=== PATIENT | female | born 1960 | race Caucasian/White ===

== ENCOUNTER 2016-05-25 14:12 | Inpatient (IN) | payer OTHER ==
[2016-05-25] MEDS ORDERED: MORPHINE SULFATE 2 MG/ML SYRINGE IVP STA (14:30)
[2016-05-25] MEDS ORDERED: ASPIRIN 81 MG CHEW PO STA (14:30)
[2016-05-25] MEDS ORDERED: NITROGLYCERIN SL TABS 0.4 MG TAB SUBLINGUAL STA ×3 (14:30)
--- NOTE | 2016-05-25 14:34 | ED ---
General Adult HPI - General Chief complaint: Chest Pain Stated complaint: Chest Pain Time Seen by Provider: 05/25/16 14:15 Source: patient, RN notes reviewed Mode of arrival: wheelchair Limitations: no limitations - History of Present Illness Initial comments: This is a 55-year-old female who presents to the emergency department complaining of left-sided chest pain radiating to the left neck and left arm. Patient states she's also short of breath. Patient states started 9:00 it wasn' t as bad and has gotten progressively worse. Patient states she has a past medical history significant for coronary artery disease and has one stent placed per patient states this occurred 2 years ago. Patient also states she has diabetes high blood pressure high cholesterol. Patient also states she continues to smoke. Patient denies any recent fever chills or cough. Patient denies any abdominal pain she denies nausea vomiting or diarrhea. Patient denies any back pain. Patient denies any lightheadedness dizziness or near syncopal episode. Patient denies headache patient denies numbness weakness. Patient states she took 2 nitroglycerin at home and was not helpful - Related Data Home Medications Medication Instructions Recorded Confirmed Albuterol Inhaler [Ventolin Hfa 2 inhalation INHALATION RT-Q4H PRN 12/05/1309/05 Inhaler] Carvedilol [Coreg] 3.125 mg PO BID 12/05/13 05/25/16 Methylphenidate HCl [Ritalin] 20 mg PO TID 12/05/13 05/25/16 ALPRAZolam [Xanax] 0.5 mg PO BID PRN 10/30/14 05/25/16 Nitroglycerin Sl Tabs [Nitrostat] 0.4 mg SUBLINGUAL Q5M PRN 10/30/14 05/25/16 PARoxetine [Paxil] 20 mg PO DAILY 11/04/14 05/25/16 Fenofibrate Nanocrystallized 48 mg PO DAILY 05/27/15 05/25/16 [Tricor] Hydrocodone/Acetaminophen 1 tab PO Q6H PRN 05/27/15 05/25/16 [Hydrocodon-Acetaminoph 7.5-325] Omeprazole 20 mg PO BID 05/27/15 05/25/16 Aspirin 81 mg PO DAILY 08/07/15 05/25/16 Amitriptyline HCl [Elavil] 10 mg PO HS 12/13/15 05/25/16 Isosorbide Mononitrate ER [Imdur] 30 mg PO DAILY 12/13/15 05/25/16 Pregabalin [Lyrica] 50 mg PO BID 12/13/15 05/25/16 metFORMIN HCL [Glucophage] 500 mg PO BID 05/25/16 05/25/16 Allergies Allergy/AdvReac Type Severity Reaction Status Date / Time atorvastatin AdvReac leg cramps Verified 05/25/16 14:23 gabapentin AdvReac Swelling Verified 05/25/16 14:23 Review of Systems ROS Statement: Those systems with pertinent positive or pertinent negative responses have been documented in the HPI. ROS Other: All systems not noted in ROS Statement are negative. Past Medical History Past Medical History: Coronary Artery Disease (CAD), Chest Pain / Angina, COPD, Diabetes Mellitus, GERD/Reflux, Hyperlipidemia, Hypertension, Myocardial Infarction ([place]), Osteoarthritis (OA) Additional Past Medical History / Comment(s): Hep C, IV drug abuse>25 years ago , murmur, CHRONIC TOTAL OCCLUSION RCA PER HEART CATH 2013, MILD LT SYSTOLIC DYSFUNCTIONstroke behind eye 3 mos. ago, neuropathy Last Myocardial Infarction Date:: 2010 History of Any Multi-Drug Resistant Organisms: None Reported Past Surgical History: Section, Heart Catheterization, Heart Catheterization With Stent, Tubal Ligation Additional Past Surgical History / Comment(s): stated past heart cath 100% occlusion-unclear if has any stent Past Anesthesia/Blood Transfusion Reactions: No Reported Reaction Date of Last Stent Placement:: 2010 Past Psychological History: Depression Additional Psychological History / Comment(s): lives with boyfriend, pt is independant, works as teamleader in factory. Smoking Status: Current every day smoker Past Alcohol Use History: None Reported Additional Past Alcohol Use History / Comment(s): has smoked <ppd since teens Past Drug Use History: None Reported - Past Family History Mother Family Medical History: Myocardial Infarction ([place]) General Exam - General Exam Comments Initial Comments: GENERAL: Patient is well-developed and well-nourished. Patient is nontoxic and well- hydrated and is in moderate distress. ENT: Neck is soft and supple. No significant lymphadenopathy is noted. Oropharynx is clear. Moist mucous membranes. Neck has full range of motion without eliciting any pain. EYES: The sclera were anicteric and conjunctiva were pink and moist. Extraocular movements were intact and pupils were equal round and reactive to light. Eyelids were unremarkable. PULMONARY: Diminished lung sounds in the bases CARDIOVASCULAR: There is a regular rate and rhythm without any murmurs gallops or rubs. ABDOMEN: Soft and nontender with normal bowel sounds. No palpable organomegaly was noted. There is no palpable pulsatile mass. SKIN: Skin is clear with no lesions or rashes and otherwise unremarkable. NEUROLOGIC: Patient is alert and oriented x3. Cranial nerves II through XII are grossly intact. Motor and sensory are also intact. Normal speech, volume and content. Symmetrical smile. MUSCULOSKELETAL: Normal extremities with adequate strength and full range of motion. No lower extremity swelling or edema. No calf tenderness. LYMPHATICS: No significant lymphadenopathy is noted PSYCHIATRIC: Normal psychiatric evaluation. Normal interpersonal interactions appears functionally intact in deals appropriately with others. No signs of depression. No signs of anxiety. Limitations: no limitations Course Vital Signs 05/25/16 05/25/16 05/25/16 14:21 14:42 14:47 Temperature 97.3 F L Pulse Rate 93 92 95 Respiratory 18 20 20 Rate Blood Pressure 167/75 136/77 134/74 O2 Sat by Pulse 97 97 95 Oximetry Medical Decision Making - Medical Decision Making EKG shows normal sinus rhythm at 92 bpm. It was 194 QRS is 98 QT interval 346 QTC is 427. Patient's EKG has flipped T waves in leads II, III, and F aVF which I compared to an old EKG and saw no acute changes. Patient chest pain was not relieved with nitroglycerin gave the patient morphine and it did improve the pain a little. Patient's chest x-ray was done shows no acute abnormality. I spoke with Dr. Carroll and admitted the patient based on her symptoms and previous history. I continued the nitroglycerin on the floor as well as heparin. I counseled the etiology and I wrote admitting orders. - Lab Data Result diagrams: 05/25/16 14:40 05/25/16 14:40 Lab Results 05/25/16 05/25/16 05/25/16 Range/Units 14:40 14:40 14:40 WBC 9.4 (3.8-10.6) k/uL RBC 4.88 (3.80-5.40) m/uL Hgb 14.3 (11.4-16.0) gm/dL Hct 43.8 (34.0-46.0) % MCV 89.8 (80.0-100.0) fL MCH 29.3 (25.0-35.0) pg MCHC 32.7 (31.0-37.0) g/dL RDW 14.7 (11.5-15.5) % Plt Count 290 (150-450) k/uL Neutrophils % 66 % Lymphocytes % 24 % Monocytes % 4 % Eosinophils % 3 % Basophils % 0 % Neutrophils # 6.2 (1.3-7.7) k/uL Lymphocytes # 2.2 (1.0-4.8) k/uL Monocytes # 0.4 (0-1.0) k/uL Eosinophils # 0.3 (0-0.7) k/uL Basophils # 0.0 (0-0.2) k/uL PT (9.0-12.0) sec INR (<1.1) APTT (22.0-30.0) sec Sodium 143 (137-145) mmol/L Potassium 4.2 (3.5-5.1) mmol/L Chloride 104 (98-107) mmol/L Carbon Dioxide 25 (22-30) mmol/L Anion Gap 14 mmol/L BUN 13 (7-17) mg/dL Creatinine 0.85 (0.52-1.04) mg/dL Est GFR (MDRD) Af Amer >60 (>60 ml/min/1.73 sqM) Est GFR (MDRD) Non-Af >60 (>60 ml/min/1.73 sqM) Glucose 144 H (74-99) mg/dL Calcium 9.9 (8.4-10.2) mg/dL Magnesium 1.8 (1.6-2.3) mg/dL Total Bilirubin 0.4 (0.2-1.3) mg/dL AST 13 L (14-36) U/L ALT 27 (9-52) U/L Alkaline Phosphatase 75 (38-126) U/L Total Creatine Kinase 38 (30-135) U/L CK-MB (CK-2) 0.6 (0.0-2.4) ng/mL CK-MB (CK-2) Rel Index 1.6 Troponin I <0.012 (0.000-0.034) ng/mL Total Protein 7.5 (6.3-8.2) g/dL Albumin 4.4 (3.5-5.0) g/dL 05/25/16 Range/Units 14:40 WBC (3.8-10.6) k/uL RBC (3.80-5.40) m/uL Hgb (11.4-16.0) gm/dL Hct (34.0-46.0) % MCV (80.0-100.0) fL MCH (25.0-35.0) pg MCHC (31.0-37.0) g/dL RDW (11.5-15.5) % Plt Count (150-450) k/uL Neutrophils % % Lymphocytes % % Monocytes % % Eosinophils % % Basophils % % Neutrophils # (1.3-7.7) k/uL Lymphocytes # (1.0-4.8) k/uL Monocytes # (0-1.0) k/uL Eosinophils # (0-0.7) k/uL Basophils # (0-0.2) k/uL PT 10.3 (9.0-12.0) sec INR 1.0 (<1.1) APTT 25.5 (22.0-30.0) sec Sodium (137-145) mmol/L Potassium (3.5-5.1) mmol/L Chloride (98-107) mmol/L Carbon Dioxide (22-30) mmol/L Anion Gap mmol/L BUN (7-17) mg/dL Creatinine (0.52-1.04) mg/dL Est GFR (MDRD) Af Amer (>60 ml/min/1.73 sqM) Est GFR (MDRD) Non-Af (>60 ml/min/1.73 sqM) Glucose (74-99) mg/dL Calcium (8.4-10.2) mg/dL Magnesium (1.6-2.3) mg/dL Total Bilirubin (0.2-1.3) mg/dL AST (14-36) U/L ALT (9-52) U/L Alkaline Phosphatase (38-126) U/L Total Creatine Kinase (30-135) U/L CK-MB (CK-2) (0.0-2.4) ng/mL CK-MB (CK-2) Rel Index Troponin I (0.000-0.034) ng/mL Total Protein (6.3-8.2) g/dL Albumin (3.5-5.0) g/dL Critical Care Time Critical Care Time: Yes Total Critical Care Time: 35 Disposition Clinical Impression: Unstable angina pectoris Disposition: ADMITTED IP TO THIS [facility] Time of Disposition: 15:46
[2016-05-25 14:57] LABS: Partial Thromboplastin Time 25.5 sec (22.0-30.0); Prothrombin Time 10.3 sec (9.0-12.0)
[2016-05-25 14:59] LABS: Basophils % (A) 0 %; CH 29.3; CHCM 32.7; Eosinophils # (A) 0.3 k/uL (0-0.7); Eosinophils % (A) 3 %; HCT 43.8 % (34.0-46.0); HDW 2.68; HGB 14.3 gm/dL (11.4-16.0); Luc # (Auto) 0.22; Luc % (Auto) 2; Lymphocytes # (A) 2.2 k/uL (1.0-4.8); Lymphocytes % (A) 24 %; MCH 29.3 pg (25.0-35.0); MCHC 32.7 g/dL (31.0-37.0); MCV 89.8 fL (80.0-100.0); Mean Platelet Volume 6.5; Monocytes # (A) 0.4 k/uL (0-1.0); Monocytes % (A) 4 %; Neutrophils # (A) 6.2 k/uL (1.3-7.7); Neutrophils % (A) 66 %; RBC 4.88 m/uL (3.80-5.40); RDW 14.7 % (11.5-15.5); WBC 9.4 k/uL (3.8-10.6); WBC (Perox) 9.74
[2016-05-25 15:09] LABS: ALT 27 U/L (9-52); AST 13 U/L (14-36); Alkaline Phosphatase 75 U/L (38-126); Anion Gap 14 mmol/L; Blood Urea Nitrogen 13 mg/dL (7-17); Calcium 9.9 mg/dL (8.4-10.2); Carbon Dioxide 25 mmol/L (22-30); Chloride 104 mmol/L (98-107); Glucose 144 mg/dL (74-99); Magnesium 1.8 mg/dL (1.6-2.3); Non-African American GFR(MDRD) >60 (>60 ml/min/1.73 sqM); Potassium 4.2 mmol/L (3.5-5.1); Sodium 143 mmol/L (137-145); Total Bilirubin 0.4 mg/dL (0.2-1.3); Total Protein 7.5 g/dL (6.3-8.2)
[2016-05-25 15:11] LABS: Creatine Kinase 38 U/L (30-135)
--- NOTE | 2016-05-25 15:11 | XR ---
EXAMINATION TYPE: XR chest 2V DATE OF EXAM: 05/25/2016 3:02 PM COMPARISON: 12/13/2015 HISTORY: Chest pain FINDINGS: The lungs are clear and there is no pneumothorax, pleural effusion, or focal pneumonia. Mild hypertr ophic change of the spine. IMPRESSION: 1. No acute process.
[2016-05-25] MEDS ORDERED: MORPHINE SULFATE 4 MG/ML SYRINGE IVP STA (15:17)
[2016-05-25 15:24] LABS: Creatine Kinase MB 0.6 ng/mL (0.0-2.4); Troponin I <0.012 ng/mL (0.000-0.034)
[2016-05-25] MEDS ORDERED: HEPARIN SODIUM,PORCINE 5,000 UNIT/ML 1 ML VIAL IV ONE (15:47)
[2016-05-25] MEDS ORDERED: HEPARIN SODIUM,PORCINE/D5W PMX 25,000 UNIT in DEXTROSE/WATER 1 500ML.BAG IV SCH (16:00)
[2016-05-25] MEDS ORDERED: ALBUTEROL NEBULIZED 2.5 MG/3 ML INHALATION PRN (18:04)
[2016-05-25] MEDS: NITROGLYCERIN OINT 1 INCH/GM PACKET TOPICAL SCH (18:18)
[2016-05-25] MEDS: NITROGLYCERIN SL TABS 0.4 MG TAB SUBLINGUAL PRN ×3 (19:46→19:56)
[2016-05-25] MEDS: PREGABALIN 50 MG CAP PO SCH (19:47)
[2016-05-25] MEDS: AMITRIPTYLINE HCL 10 MG TAB PO SCH (19:47)
[2016-05-25] MEDS: metFORMIN 500 MG TAB PO SCH (19:47)
[2016-05-25] MEDS: CARVEDILOL 3.125 MG TAB PO SCH (19:47)
[2016-05-25] MEDS: PANTOPRAZOLE 40 MG TABLET PO SCH (19:47)
[2016-05-25] MEDS: MORPHINE SULFATE 2 MG/ML SYRINGE IVP PRN (19:59)
[2016-05-25 20:33] LABS: Glucose,Whole Blood 157 mg/dL (75-99)
[2016-05-25 20:49] LABS: Creatine Kinase 35 U/L (30-135)
[2016-05-25 21:03] LABS: Creatine Kinase MB 0.5 ng/mL (0.0-2.4); Troponin I <0.012 ng/mL (0.000-0.034)
[2016-05-25] MEDS: HYDROcodone/APAP 7.5-325MG 1 EACH TAB PO PRN (21:32)
[2016-05-25] MEDS: METHYLPHENIDATE HCL 10 MG TAB PO SCH (21:32)
[2016-05-25] MEDS: ALPRAZolam 0.5 MG TAB PO PRN (21:32)
[2016-05-25] MEDS: INSULIN LISPRO (humaLOG) 300 UNIT/3 ML VIAL SQ SCH (22:05)
[2016-05-26] MEDS: NITROGLYCERIN OINT 1 INCH/GM PACKET TOPICAL SCH ×4 (00:27→17:14)
[2016-05-26] MEDS: HEPARIN SODIUM,PORCINE 5,000 UNIT/ML 1 ML VIAL IV PRN ×2 (00:29→07:02)
[2016-05-26] MEDS: MORPHINE SULFATE 2 MG/ML SYRINGE IVP PRN ×4 (00:35→21:28)
[2016-05-26] MEDS ORDERED: TEMAZEPAM 15 MG CAP PO PRN (01:05)
[2016-05-26 02:55] LABS: Creatine Kinase 33 U/L (30-135)
[2016-05-26 03:08] LABS: Creatine Kinase MB 0.8 ng/mL (0.0-2.4); Troponin I <0.012 ng/mL (0.000-0.034)
[2016-05-26] MEDS: HYDROcodone/APAP 7.5-325MG 1 EACH TAB PO PRN ×3 (04:34→20:14)
[2016-05-26 06:00] LABS: Glucose,Whole Blood 128 mg/dL (75-99)
[2016-05-26] MEDS: INSULIN LISPRO (humaLOG) 300 UNIT/3 ML VIAL SQ SCH ×4 (06:01→21:27)
[2016-05-26 06:46] LABS: Basophils # (A) 0.1 k/uL (0-0.2); Basophils % (A) 1 %; CHCM 31.8; Eosinophils # (A) 0.4 k/uL (0-0.7); Eosinophils % (A) 6 %; HDW 2.71; HGB 11.7 gm/dL (11.4-16.0); Luc # (Auto) 0.13; Luc % (Auto) 2; Lymphocytes # (A) 2.6 k/uL (1.0-4.8); Lymphocytes % (A) 42 %; MCHC 31.6 g/dL (31.0-37.0); MCV 91.6 fL (80.0-100.0); Mean Platelet Volume 7.6; Monocytes # (A) 0.3 k/uL (0-1.0); Monocytes % (A) 6 %; Neutrophils # (A) 2.6 k/uL (1.3-7.7); Neutrophils % (A) 43 %; RBC 4.04 m/uL (3.80-5.40); RDW 14.6 % (11.5-15.5); WBC 6.1 k/uL (3.8-10.6); WBC (Perox) 6.29
[2016-05-26] MEDS: CARVEDILOL 3.125 MG TAB PO SCH ×2 (06:49→15:21)
[2016-05-26] MEDS: PANTOPRAZOLE 40 MG TABLET PO SCH ×2 (06:49→15:21)
[2016-05-26] MEDS: metFORMIN 500 MG TAB PO SCH ×2 (06:50→17:15)
[2016-05-26 06:56] LABS: Anion Gap 9 mmol/L; Blood Urea Nitrogen 17 mg/dL (7-17); Calcium 8.9 mg/dL (8.4-10.2); Carbon Dioxide 30 mmol/L (22-30); Chloride 104 mmol/L (98-107); Cholesterol 174 mg/dL (<200); Glucose 131 mg/dL (74-99); HDL Cholesterol 28 mg/dL (40-60); Non-African American GFR(MDRD) 59 (>60 ml/min/1.73 sqM); Potassium 4.3 mmol/L (3.5-5.1); Sodium 143 mmol/L (137-145); Triglycerides 514 mg/dL (<150)
[2016-05-26] MEDS: PARoxetine 20 MG TAB PO SCH (07:50)
[2016-05-26] MEDS: ASPIRIN 325 MG TAB PO SCH (07:50)
[2016-05-26] MEDS: PREGABALIN 50 MG CAP PO SCH ×2 (07:50→20:14)
[2016-05-26] MEDS: FENOFIBRATE 54 MG TAB PO SCH (07:50)
[2016-05-26] MEDS: METHYLPHENIDATE HCL 10 MG TAB PO SCH ×3 (07:50→21:28)
[2016-05-26] MEDS: ISOSORBIDE MONONITRATE ER 30 MG TAB.ER.24H PO SCH (07:50)
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
[2016-05-26 08:58] LABS: Hemoglobin A1C 5.9 % (4.2-6.1)
--- NOTE | 2016-05-26 11:01 | ECHOF ---
Referral Reason:chest pain MEASUREMENTS -------- HEIGHT: 160.0 cm WEIGHT: 76.2 kg BP: 149/64 RVIDd: 2.5 cm (< 3.3) IVSd: 1.6 cm (0.6 - 1.1) LVIDd: 4.1 cm (3.9 - 5.3) LVPWd: 1.6 cm (0.6 - 1.1) IVSs: 1.9 cm LVIDs: 2.6 cm LVPWs: 2.1 cm LAESV Index (A-L): 14.96 ml/m Ao Diam: 2.2 cm (2.0 - 3.7) AV Cusp: 1.7 cm (1.5 - 2.6) LA Diam: 2.5 cm (2.7 - 3.8) MV EXCURSION: 9.718 mm (> 18.000) MV EF SLOPE: 50 mm/s (70 - 150) EPSS: 0.2 cm MV E Chavo: 0.59 m/s MV DecT: 247 ms MV A Chavo: 0.70 m/s MV E/A Ratio: 0.85 AR PHT: 1785 ms FINDINGS -------- Sinus rhythm. This was a technically good study. There is moderate concentric left ventricular hypertrophy. Overall left ventricular systolic function is normal with, an EF between 55 - 60 %. The right ventricle is normal in size. Normal LA size by volume 22+/-6 ml/m2. The right atrium is normal in size. The aortic valve is trileaflet and appears structurally normal. There is mild aortic regurgitation. The mitral valve leaflets are mildly thickened. Mild mitral annular calcification present. There is trace mitral regurgitation. Trace tricuspid regurgitation present. Right ventricular systolic pressure is normal at < 35 mmHg. Pulmonic valve appears structurally normal. The aortic root size is normal. Normal inferior vena cava with normal inspiratory collapse consistent with estimated right atrial pressure of 5 mmHg. Echo free space may represent effusion or a pericardial fat pad. CONCLUSIONS -------- 1. Sinus rhythm. 2. The mitral valve leaflets are mildly thickened. 3. Mild mitral annular calcification present. 4. There is trace mitral regurgitation. 5. Trace tricuspid regurgitation present. 6. Right ventricular systolic pressure is normal at < 35 mmHg. 7. Pulmonic valve appears structurally normal. 8. The aortic root size is normal. 9. Echo free space may represent effusion or a pericardial fat pad. 10. This was a technically good study. 11. There is moderate concentric left ventricular hypertrophy. 12. Overall left ventricular systolic function is normal with, an EF between 55 - 60 %. 13. The right ventricle is normal in size. 14. Normal LA size by volume 22+/-6 ml/m2. 15. The right atrium is normal in size. 16. The aortic valve is trileaflet and appears structurally normal. 17. There is mild aortic regurgitation. [employer]: Rosita Sam RDCS
[2016-05-26] MEDS: NICOTINE 14MG/24HR PATCH TRANSDERM SCH (11:41)
[2016-05-26 11:47] LABS: Glucose,Whole Blood 94 mg/dL (75-99)
[2016-05-26] MEDS ORDERED: REGADENOSON 0.4 MG/5 ML SYRINGE IV ONE (11:59)
[2016-05-26] MEDS ORDERED: AMINOPHYLLINE 500 MG/20 ML VIAL IV PRN (11:59)
--- NOTE | 2016-05-26 12:29 | HP ---
DATE OF ADMISSION: DATE OF SERVICE: 05/25/2016 Chief complaint is chest pain. HISTORY OF PRESENT ILLNESS: This 55-year-old woman with a past medical history of multiple medical problems, including history of CAD, history of chest pain, history of COPD, diabetes mellitus, GERD, hyperlipidemia, hypertension, myocardial infarction, DJD, pulmonary embolism, history of IV drug abuse with history of depression being followed by Dr. Vegas in the outpatient setting, was admitted to [facility], was complaining of chest pain. The pain is mostly centered in the left side of the chest which is radiating into the left shoulder, left neck and left arm and the patient also has some minimal shortness of breath. There is factors. Patient came to [facility], admitted for further evaluation and treatment. Troponins are negative so far. Cardiology evaluation in progress. Past medical history of CAD, history of COPD, diabetes mellitus, GERD, hypertension, hyperlipidemia, history of myocardial infarction, DJD, history of pulmonary embolism, history of hepatitis, history of IV drug abuse remotely. Medications prior to admission include, home medications are: 1. Hydrocodone 7.5 q.6 p.r.n. 2. Metformin 500 mg b.i.d. 3. Nitrostat 0.4 sublingual p.r.n. 4. Elavil 10 mg p.o. q.h.s. 5. Xanax 0.5 mg b.i.d. p.r.n. 6. Lyrica 50 mg p.o. b.i.d. 7. Paxil 20 mg p.o. daily. 8. Omeprazole 20 mg p.o. b.i.d. 9. Ritalin 20 mg p.o. t.i.d. 10. Imdur 30 mg p.o. daily. 11. TriCor 48 mg p.o. daily. 12. Coreg 3.125 mg p.o. b.i.d. 13. Aspirin 81 mg daily. 14. Albuterol 2 puffs q.4 p.r.n. Allergies are ATORVASTATIN, GABAPENTIN. FAMILY HISTORY: History of myocardial infarction in the family. SOCIAL HISTORY: History of smoking on a daily basis. REVIEW OF SYSTEMS: ENT: No diminished hearing or diminished vision. CARDIOVASCULAR SYSTEM: No angina, no palpitation. RESPIRATORY: As mentioned earlier. GI: No nausea. : No dysuria. NERVOUS SYSTEM: No numbness or weakness. ALLERGY/IMMUNOLOGY: No asthma or hayfever. MUSCULOSKELETAL: As mentioned earlier. RHEUMATOLOGY: Negative. ENDOCRINE: As mentioned earlier. CONSTITUTIONAL: As mentioned earlier. DERMATOLOGY: Negative. PSYCHIATRY: As mentioned earlier. PHYSICAL EXAM: Patient is alert and oriented x3. The pulse is 88, blood pressure 130/75, respirations 16, temperature is 97.4, pulse ox 92% on room air. HEENT: Conjunctivae normal. NECK: No jugular venous distension. CARDIOVASCULAR SYSTEM: S1, S2, muffled. RESPIRATORY: Breath sounds diminished at the bases. No rhonchi , no crackles. Abdomen is soft, nontender, no mass palpable. EXTREMITIES: Legs no edema, no swelling. NERVOUS SYSTEM: Higher functions as mentioned earlier, moves all 4 limbs, no focal motor deficits. LYMPHATICS: No lymph node enlargement in the neck, groin or axillae. SKIN: No ulcer, rash or bleeding. Labs are at this time shows CBC within normal, troponins are negative so far. Glucose 157. ASSESSMENT: 1. Chest pain, possible angina. 2. Increased random blood sugar. 3. History of chronic obstructive pulmonary disease. 4. Diabetes mellitus type 2. 5. Gastroesophageal reflux disease. 6. Hypertension. 7. Hyperlipidemia. 8. History of myocardial infarction. 9. History of degenerative joint disease. 10. History of pulmonary embolism. 11. History of hypertension. 12. History of IV drug abuse remotely. 13. History of neuropathy. 14. History of cardiac catheterization. 15. History of depression. 16. History of nicotine dependence. RECOMMENDATION: In this 55-year-old gentleman who presented with multiple complex medical issues, will monitor the patient closely. Continue with the current medication and symptomatic treatment and antiplatelets agents, acute coronary syndrome protocol. Cardiology consultation and p.o. after midnight. Resume the home medications. Guarded prognosis because of multiple complex medical issues. Further recommendations to follow. MTDD
--- NOTE | 2016-05-26 14:45 | NM ---
EXAMINATION TYPE: NM stress lexiscan cardiolite DATE OF EXAM: 05/26/2016 2:29 PM COMPARISON: Previous exam 31 October 2014 HISTORY: Difficulty breathing, chest pain intermittently TECHNIQUE: After the intravenous administration of 9.89 mCi Tc 99m Sestamibi - Cardiolite resting SP ECT images acquired 45 minutes post injection. The patient received 0.4mg Lexiscan, 27.5 mCi Tc 99m Sestamibi - Stress images obtained [address] injection FINDINGS: Review of stress and rest SPECT images demonstrates abnormal low radiopharmaceutical uptake on stress imaging as compared to rest imaging in the left ventricle within the inferolateral left ventricular myocardium, possibly the inferoseptal left ventricle towards the base of the heart. Gated analysis sh ows questionable paradoxical wall motion along the inferior wall with an estimated left ventricular e jection fraction of 53 %. IMPRESSION: Pharmacologically-induced left ventricular myocardial ischemia.
[2016-05-26 16:31] LABS: Glucose,Whole Blood 144 mg/dL (75-99)
[2016-05-26] MEDS: AMITRIPTYLINE HCL 10 MG TAB PO SCH (20:14)
[2016-05-26] MEDS: ALPRAZolam 0.5 MG TAB PO PRN (20:15)
[2016-05-26 21:28] LABS: Glucose,Whole Blood 118 mg/dL (75-99)
[2016-05-27] MEDS: NITROGLYCERIN OINT 1 INCH/GM PACKET TOPICAL SCH ×3 (02:43→11:40)
[2016-05-27 05:17] VITALS: RESP 18
[2016-05-27] MEDS: HYDROcodone/APAP 7.5-325MG 1 EACH TAB PO PRN ×2 (05:52→12:42)
[2016-05-27 06:15] LABS: Glucose,Whole Blood 116 mg/dL (75-99)
[2016-05-27] MEDS: MORPHINE SULFATE 2 MG/ML SYRINGE IVP PRN ×2 (06:34→09:47)
[2016-05-27] MEDS: INSULIN LISPRO (humaLOG) 300 UNIT/3 ML VIAL SQ SCH ×2 (06:34→11:58)
[2016-05-27] MEDS: CARVEDILOL 3.125 MG TAB PO SCH (06:34)
[2016-05-27] MEDS: metFORMIN 500 MG TAB PO SCH (06:35)
[2016-05-27] MEDS: PANTOPRAZOLE 40 MG TABLET PO SCH (06:35)
[2016-05-27 06:39] LABS: Basophils % (A) 1 %; CH 29.4; CHCM 31.7; Eosinophils # (A) 0.4 k/uL (0-0.7); Eosinophils % (A) 7 %; HCT 38.2 % (34.0-46.0); HDW 2.69; HGB 11.5 gm/dL (11.4-16.0); Hypochromasia Slight; Luc # (Auto) 0.07; Luc % (Auto) 1; Lymphocytes # (A) 1.8 k/uL (1.0-4.8); Lymphocytes % (A) 30 %; MCH 28.1 pg (25.0-35.0); MCHC 30.1 g/dL (31.0-37.0); MCV 93.2 fL (80.0-100.0); Mean Platelet Volume 7.3; Monocytes # (A) 0.3 k/uL (0-1.0); Monocytes % (A) 5 %; Neutrophils # (A) 3.3 k/uL (1.3-7.7); Neutrophils % (A) 56 %; RDW 14.6 % (11.5-15.5); WBC (Perox) 6.25
[2016-05-27 06:47] LABS: Anion Gap 5 mmol/L; Blood Urea Nitrogen 16 mg/dL (7-17); Calcium 9.4 mg/dL (8.4-10.2); Carbon Dioxide 33 mmol/L (22-30); Chloride 104 mmol/L (98-107); Glucose 121 mg/dL (74-99); Non-African American GFR(MDRD) 58 (>60 ml/min/1.73 sqM); Potassium 4.5 mmol/L (3.5-5.1); Sodium 142 mmol/L (137-145)
[2016-05-27] MEDS: PREGABALIN 50 MG CAP PO SCH (08:05)
[2016-05-27] MEDS: ASPIRIN 325 MG TAB PO SCH (08:05)
[2016-05-27] MEDS: PARoxetine 20 MG TAB PO SCH (08:05)
[2016-05-27] MEDS: NICOTINE 14MG/24HR PATCH TRANSDERM SCH (08:05)
[2016-05-27] MEDS: FENOFIBRATE 54 MG TAB PO SCH (08:05)
[2016-05-27] MEDS: ISOSORBIDE MONONITRATE ER 30 MG TAB.ER.24H PO SCH (08:05)
[2016-05-27] MEDS: METHYLPHENIDATE HCL 10 MG TAB PO SCH (09:36)
--- NOTE | 2016-05-27 10:39 | PN ---
DATE OF SERVICE: 05/26/2016 This 55-year-old woman who was admitted with chest pain, had a positive stress test. Patient is being closely monitored. No chest pain or palpitations. No fever. On exam, alert and oriented x3. Pulse 85, blood pressure 151/68, respirations 16, temperature 97.7, pulse ox 93% on room air. HEENT: Conjunctivae normal. NECK: No jugular venous distention. CARDIOVASCULAR: S1 and S2, muffled. RESPIRATORY: Breath sounds diminished at the bases. No rhonchi, no crackles. ABDOMEN: Soft, nontender. LEGS: No edema, no swelling. NERVOUS SYSTEM: No focal deficits. LABS: CBC and CMP noted. Triglycerides are 514. Glucose is 144. ASSESSMENT: 1. Chest pain, possible angina with positive stress. 2. Increased random blood sugar. 3. Chronic obstructive pulmonary disease. 4. Diabetes mellitus type 2. 5. Gastroesophageal reflux disease. 6. Hypertension. 7. Hyperlipidemia. 8. History of myocardial infarction. 9. History of degenerative joint disease. 10. History of pulmonary embolism. 11. History of hypertension. 12. History of intravenous drug abuse remotely. 13. History of neuropathy. 14. History of cardiac catheterization. 15. history of depression. 16. Remote history of nicotine dependence. RECOMMENDATIONS AND DISCUSSION: Recommend to continue current medications, continue with monitoring and symptomatic treatment. Otherwise, at this time I recommend continue with current medications. Add Lofibra to the current regimen. Otherwise, antiplatelet agents. Closely follow with Cardiology. Guarded prognosis. Further recommendations to follow. [facility]
--- NOTE | 2016-05-27 11:07 | EST ---
DATE OF SERVICE: 05/26/2016 AGE: 55Y SEX: F HT: 5'3" WT: 165 lbs. Protocol Shaheen: Other: Lexiscan Cardiolite Stage: Dur. of Exercise: *Heart Rate Blood Pressure *Rest: 78 Rest: 125/73 * *Max. Achieved: 103 Maximum BP: 142/62 85% PMHR: 141 100% PMHR: 166 *METS: INDICATIONS: Chest pain. MEDICATIONS: Study done by Larissa Cox. CLINICAL INFORMATION: History of chest pain, history of shortness of breath, palpitations, hypertension, diabetes, hypercholesterolemia, family history of coronary artery disease, history ( ) and stents. Resting ECG shows sinus rhythm, rate of 78 per minute, MT interval of 0.24, QRS 0.10, poor R wave progression in anteroseptal leads with first degree AV block, normal ST-T waves. Utilizing a standard Lexiscan protocol, Lexiscan was given IV push followed by serial EKGs without any chest pain or pressure or ST segment deviations indicative of ischemia in any of the monitoring 12 leads. IMPRESSION: 1. Baseline rhythm is sinus with first degree AV block, poor R wave progression in anteroseptal leads; cannot exclude anteroseptal myocardial infarction age unknown. 2. Negative Lexiscan Cardiolite study. 3. Nuclear scintigrams to follow from radiology department.
[2016-05-27] MEDS: ALPRAZolam 0.5 MG TAB PO PRN (11:37)
[2016-05-27 11:44] VITALS: BP 139/71; PULSE 86; TEMP 97.3
[2016-05-27 11:47] LABS: Glucose,Whole Blood 125 mg/dL (75-99)
--- NOTE | 2016-05-27 14:54 | P.PN ---
Subjective Principal diagnosis: Chest pain This is a pleasant 55-year-old female admitted to the hospital with symptoms of chest discomfort. She has a known history of a chronic total occlusion of the right coronary artery, follows regularly with Dr. Hunt in the office. Patient underwent a stress test which did reveal evidence of reversible ischemia in the inferior region. This was discussed with Dr. Moser who felt that that was the area of distribution from the chronic total right coronary artery. Patient was seen and examined this morning, she's been up ambulating without any difficulty. Should be able to be discharged home today to follow-up with Dr. Hunt in the office. Objective - Vital Signs Vital signs: Vital Signs Temp 97.3 F L 05/27/16 11:42 Pulse 86 05/27/16 12:00 Resp 18 05/27/16 12:00 BP 139/71 05/27/16 11:42 Pulse Ox 95 05/27/16 11:42 Intake & Output 05/26/16 05/27/16 05/27/16 18:59 06:59 18:59 Intake Total 485.293 180 Output Total 550 600 250 Balance -64.707 -600 -70 Weight 76.7 kg Intake: IV 100 Heparin Sodium,Porcine/ 100 D5w Pmx 25,000 unit In Dextrose/Water 1 500ml. bag @ 12 UNITS/KG/HR 17. 96 mls/hr IV .Q24H VERNA Rx #:[id number] Intake, IV Titration 149.293 Amount Heparin Sodium,Porcine/ 149.293 D5w Pmx 25,000 unit In Dextrose/Water 1 500ml. bag @ 12 UNITS/KG/HR 17. 96 mls/hr IV .Q24H VERNA Rx #:[id number] Oral 236 180 Output: Urine 550 600 250 Other: Voiding Method Toilet Toilet # Voids 2 - Exam PHYSICAL EXAMINATION: HEENT: Head is atraumatic, normocephalic. Pupils equal, round. Neck is supple. There is no elevated jugular venous pressure. HEART EXAMINATION: Heart S1, S2 normal. No murmur or gallop heard. CHEST EXAMINATION: Lungs are clear to auscultation and precussion. No chest wall tenderness is noted on palpation or with deep breathing. ABDOMEN: Soft, nontender. Bowel sounds are heard. No organomegaly noted. EXTREMITIES: 2+ peripheral pulses with no evidence of peripheral edema and no calf tenderness noted. NEUROLOGIC patient is awake, alert and oriented -3. . - Labs CBC & Chem 7: 05/27/16 05:44 05/27/16 05:44 Labs: Abnormal Lab Results - Last 24 Hours (Table) 05/26/16 05/26/16 05/27/16 Range/Units 16:30 21:17 05:44 MCHC 30.1 L (31.0-37.0) g/dL Carbon Dioxide (22-30) mmol/L Glucose (74-99) mg/dL POC Glucose (mg/dL) 144 H 118 H (75-99) mg/dL 05/27/16 05/27/16 05/27/16 Range/Units 05:44 06:05 11:44 MCHC (31.0-37.0) g/dL Carbon Dioxide 33 H (22-30) mmol/L Glucose 121 H (74-99) mg/dL POC Glucose (mg/dL) 116 H 125 H (75-99) mg/dL Assessment and Plan Plan: Assessment and plan #1 chest pain, rule out acute coronary syndrome. Troponins have been negative 3. EKG shows normal sinus rhythm with inferior lateral ST-T wave changes. #2 hypertension #3 hyperlipidemia #4 diabetes #5 nicotine dependence #6 history of CVA #7 COPD #8 known chronic total occlusion of the RCA, most recent cardiac catheterization was performed in 2013 Plan Stress test revealed evidence of reversible ischemia in the inferior region, patient has a known total chronic occlusion of the right coronary artery, medical therapy advised. She will be discharged home today to follow-up with Dr. Hunt in the office post discharge. DNP note has been reviewed, I agree with a documented findings and plan of care. Patient was seen and examined.
--- NOTE | 2016-05-28 10:18 | DS ---
DATE OF ADMISSION: 05/25/2016 DATE OF DISCHARGE: 05/27/2016 FINAL DIAGNOSES: 1. Chest pain, possible unstable angina with positive stress on medical treatment recommended by cardiology. 2. Increased random blood sugar. 3. Chronic obstructive pulmonary disease. 4. Diabetes mellitus type 2. 5. Gastroesophageal reflux disease. 6. Hypertension. 7. Hyperlipidemia. 8. Myocardial infarction. 9. Degenerative joint disease. 10. History of pulmonary embolism. 11. History of hypertension. 12. History of intravenous drug abuse remotely. 13. History of neuropathy. 14. History of cardiac catheterization. 15. History of depression. 16. Remote history of nicotine dependence. DISCHARGE DISPOSITION: Patient will be discharged in a stable condition with guarded prognosis. Cardiology cleared the patient for discharge. HISTORY OF PRESENT ILLNESS: This 55 -year-old woman with a past medical history of multiple medical problems admitted with chest pain, stress test was positive for reversible ischemia found in the area of chronic right total occlusion of the right coronary artery per cardiology. Treated medically On exam, vitals are stable. CARDIOVASCULAR: S1, S2. Abdomen soft. Central nervous system: No focal deficits. DISCHARGE ADVICE AND MEDICATIONS: 1. Diet is cardiac. 2. Activity limited until follow-up. 3. Follow up with Dr. Vegas in 2 to 3 days. 4. Follow-up with Dr. Alcazar as advised. 5. Medications are Xanax 0.5 p.o. b.i.d. p.r.n. 6.ventolin two puffs q.i.d. 7. Elavil 10 mg p.o. q.h.s. 8. Aspirin 81 mg p.o. daily. 9. Coreg 3.125 mg p.o. b.i.d. 10. Pnvsrrlryrb98 mg p.o. daily. 11. Hydrocodone 1 tablet q.6 p.r.n. 12. Isosorbide mononitrate 30 mg p.o. daily. 13. ritalin 20 mg p.o. t.i.d. 14. Habitrol 14 daily. 15. Nitrostat 0.4 sublingual p.r.n. 16. Omeprazole 20 mg b.i.d. 17. Paxil 20 mg daily. 18. Lyrica 50 mg p.o. b.i.d. 19. Glucophage 500 mg p.o. b Once again, the patient will be discharged in stable condition with guarded prognosis. SAMANTHAD
== END 2016-05-27 13:10 | disposition home or self-care (01) | DRG 303 ==
LOC: EC 14:12 → 6SEL 15:47
PROVIDERS: ADMIT Internal Medicine; ATTEND Internal Medicine
DX: I25.110 Atherosclerotic heart disease of native coronary artery with unstable angina pectoris (principal); E11.40 Type 2 diabetes mellitus with diabetic neuropathy, unspecified; I25.82 Chronic total occlusion of coronary artery; E78.00 Pure hypercholesterolemia, unspecified; I10 Essential (primary) hypertension; E78.5 Hyperlipidemia, unspecified; F17.200 Nicotine dependence, unspecified, uncomplicated; I25.2 Old myocardial infarction; J44.9 Chronic obstructive pulmonary disease, unspecified; K21.9 Gastro-esophageal reflux disease without esophagitis; M19.90 Unspecified osteoarthritis, unspecified site; B19.20 Unspecified viral hepatitis C without hepatic coma; F32.9 Major depressive disorder, single episode, unspecified; R01.1 Cardiac murmur, unspecified; Z79.82 Long term (current) use of aspirin; Z79.84 Long term (current) use of oral hypoglycemic drugs; Z79.4 Long term (current) use of insulin; Z95.5 Presence of coronary angioplasty implant and graft; Z82.49 Family history of ischemic heart disease and other diseases of the circulatory system
CPT/HCPCS: 36415; 71020; 78452; 80048; 80053; 80061; 82550; 82553; 83036; 83735; 84484; 85025; 85610; 85730; 87502; 93005; 93017; 93306; 94760; 96365; 96366; 96375; 96376; 99291

== ENCOUNTER 2016-09-09 14:03 | Emergency (ER) | payer OTHER ==
[2016-09-09] MEDS ORDERED: IPRATROPIUM-ALBUTEROL 3 ML NEB INHALATION STA (15:24)
--- NOTE | 2016-09-09 15:33 | ED ---
URI HPI - General Chief Complaint: Upper Respiratory Infection Stated Complaint: poss pneumonia Time Seen by Provider: 09/09/16 15:11 Source: patient, RN notes reviewed Mode of arrival: ambulatory Limitations: no limitations - History of Present Illness Initial Comments: 55-year-old female presents emergency Department with chief complaint of cough congestion . Patient states she's been sick for last 10 days. Patient has not seen before this. Patient states that she's had no fever no chills. Patient has a history of COPD. Patient been doing her breathing treatments at home with some relief or shortness of breath. Patient states she has a productive cough worried about pneumonia. Patient denies any chest pain or palpitations or nausea vomiting diarrhea constipation. - Related Data Home Medications Medication Instructions Recorded Confirmed Albuterol Inhaler [Ventolin Hfa 2 inhalation INHALATION RT-Q4H PRN 12/05/1309/05 Inhaler] Carvedilol [Coreg] 3.125 mg PO BID 12/05/13 05/25/16 Methylphenidate HCl [Ritalin] 20 mg PO TID 12/05/13 05/25/16 ALPRAZolam [Xanax] 0.5 mg PO BID PRN 10/30/14 05/25/16 Nitroglycerin Sl Tabs [Nitrostat] 0.4 mg SUBLINGUAL Q5M PRN 10/30/14 05/25/16 PARoxetine [Paxil] 20 mg PO DAILY 11/04/14 05/25/16 Fenofibrate Nanocrystallized 48 mg PO DAILY 05/27/15 05/25/16 [Tricor] Hydrocodone/Acetaminophen 1 tab PO Q6H PRN 05/27/15 05/25/16 [Hydrocodon-Acetaminoph 7.5-325] Omeprazole 20 mg PO BID 05/27/15 05/25/16 Aspirin 81 mg PO DAILY 08/07/15 05/25/16 Amitriptyline HCl [Elavil] 10 mg PO HS 12/13/15 05/25/16 Isosorbide Mononitrate ER [Imdur] 30 mg PO DAILY 12/13/15 05/25/16 Pregabalin [Lyrica] 50 mg PO BID 12/13/15 05/25/16 metFORMIN HCL [Glucophage] 500 mg PO BID 05/25/16 05/25/16 Previous Rx's Medication Instructions Recorded Nicotine 14Mg/24Hr Patch [Habitrol] 1 patch TRANSDERM DAILY #30 patch 05/27/16 Ipratropium-Albuterol Nebulize 3 ml INHALATION QID #1 box 09/09/16 [Duoneb 0.5 mg-3 mg/3 ml Soln] predniSONE 50 mg PO DAILY #5 tab 09/09/16 Allergies Allergy/AdvReac Type Severity Reaction Status Date / Time atorvastatin AdvReac leg cramps Verified 09/09/16 14:41 gabapentin AdvReac Swelling Verified 09/09/16 14:41 Review of Systems ROS Statement: Those systems with pertinent positive or pertinent negative responses have been documented in the HPI. ROS Other: All systems not noted in ROS Statement are negative. Past Medical History Past Medical History: Coronary Artery Disease (CAD), Chest Pain / Angina, COPD, Diabetes Mellitus, GERD/Reflux, Hyperlipidemia, Hypertension, Myocardial Infarction (DC), Osteoarthritis (OA), Pulmonary Embolus (PE) Additional Past Medical History / Comment(s): Hep C, IV drug abuse>25 years ago , murmur, SOME BLOCKAGE TO RCA PER HEART CATH 2013, MILD LT SYSTOLIC DYSFUNCTIONstroke behind eye 3 mos. ago, neuropathy Last Myocardial Infarction Date:: 2010 History of Any Multi-Drug Resistant Organisms: None Reported Past Surgical History: Section, Heart Catheterization, Tubal Ligation Additional Past Surgical History / Comment(s): STRESS TEST, HERB Past Anesthesia/Blood Transfusion Reactions: No Reported Reaction Date of Last Stent Placement:: 2010 Past Psychological History: Anxiety, Depression Additional Psychological History / Comment(s): lives with boyfriend, pt is independant, works as teamleader in factory. Smoking Status: Current every day smoker Past Alcohol Use History: None Reported Additional Past Alcohol Use History / Comment(s): has smoked <ppd since AGE 16( 1976) 1/2 PPD Past Drug Use History: None Reported Additional Drug Use History / Comment(s): AT TIME OF THIS ADMIT-PT DENIED ANY DRUG ABUSE PAST OR CURRENT-PT DENIES BUT PREVIOUS ADMIT CHARTING REFLECTED PAST USE. - Past Family History Mother Family Medical History: Myocardial Infarction (DC) Father Family Medical History: Unable to Obtain Additional Family Medical History / Comment(s): PT STTED HER FATHER IN MVA 1968 General Exam Limitations: no limitations General appearance: alert, in no apparent distress Head exam: Present: atraumatic, normocephalic, normal inspection Eye exam: Present: normal appearance, PERRL, EOMI. Absent: scleral icterus, conjunctival injection, periorbital swelling ENT exam: Present: normal exam, normal oropharynx, mucous membranes moist, TM's normal bilaterally, normal external ear exam Neck exam: Present: normal inspection, full ROM. Absent: tenderness, meningismus, lymphadenopathy Respiratory exam: Present: wheezes (faint), decreased breath sounds. Absent: normal lung sounds bilaterally, respiratory distress, rales, rhonchi, stridor Cardiovascular Exam: Present: regular rate, normal rhythm, normal heart sounds. Absent: systolic murmur, diastolic murmur, rubs, gallop, clicks GI/Abdominal exam: Present: soft, normal bowel sounds. Absent: distended, tenderness, guarding, rebound, rigid Course Vital Signs 09/09/16 09/09/16 09/09/16 14:38 15:14 15:59 Temperature 99.5 F Pulse Rate 107 H 106 H 86 Respiratory 22 24 Rate Blood Pressure 126/65 145/69 O2 Sat by Pulse 92 L 93 L Oximetry 09/09/16 16:14 Temperature Pulse Rate 88 Respiratory Rate Blood Pressure O2 Sat by Pulse Oximetry - Reevaluation(s) Reevaluation #1: 09/09/16 16:27 Patient was improved after DuoNeb treatment. Obtained and chest x-ray results no pneumonia. Medical Decision Making - Medical Decision Making 55-year-old female presented emergency from for cough congestion. Patient has COPD continues to smoke smoking cessation was counseled in detail greater than 3 minutes. Patient states that she felt better after DuoNeb treatment. Patient will be discharged with DuoNeb treatments, steroids. Disposition Clinical Impression: COPD exacerbation Disposition: HOME SELF-CARE Condition: Stable Instructions: COPD (Chronic Obstructive Pulmonary Disease) (ED) Additional Instructions: Please return to the Emergency Department if symptoms worsen or any other concerns. Prescriptions: Ipratropium-Albuterol Nebulize [Duoneb 0.5 mg-3 mg/3 ml Soln] 3 ml INHALATION QID #1 box predniSONE 50 mg PO DAILY #5 tab Time of Disposition: 16:28
--- NOTE | 2016-09-09 15:37 | XR ---
EXAMINATION TYPE: XR chest 2V DATE OF EXAM: 09/09/2016 3:33 PM COMPARISON: Prior chest x-ray 25 May 2016 HISTORY: Cough and pain, shortness of breath TECHNIQUE: Frontal and lateral views of the chest are obtained. FINDINGS: There is no focal air space opacity, pleural effusion, or pneumothorax seen. The cardiac silhouette size is within normal limits. Prominent lung volumes compatible with underlying COPD. The osseous structures are intact. IMPRESSION: No acute cardiopulmonary process.
[2016-09-09] MEDS ORDERED: CHLORPHEN-HYDROcod 8-10mg/5ml 5 ML ORAL.SYRG PO STA (15:47)
[2016-09-09] MEDS ORDERED: methylPREDNISolone SOD SUCCI 125 MG/2 ML VIAL IM ONE (16:26)
[2016-09-09 16:45] VITALS: BP 142/67; PULSE 98; RESP 20; TEMP 98
== END 2016-09-09 16:45 | disposition home or self-care (01) ==
LOC: EC 14:03
DX: J44.1 Chronic obstructive pulmonary disease with (acute) exacerbation (principal); E11.9 Type 2 diabetes mellitus without complications; K21.9 Gastro-esophageal reflux disease without esophagitis; M19.90 Unspecified osteoarthritis, unspecified site; I10 Essential (primary) hypertension; F32.9 Major depressive disorder, single episode, unspecified; F17.200 Nicotine dependence, unspecified, uncomplicated; Z88.8 Allergy status to other drugs, medicaments and biological substances; Z79.82 Long term (current) use of aspirin; Z79.84 Long term (current) use of oral hypoglycemic drugs; Z79.899 Other long term (current) drug therapy
CPT/HCPCS: 99283; 96372; 94640; 71020; J2930

== ENCOUNTER 2016-09-16 23:32 | Inpatient (IN) | payer OTHER ==
[2016-09-17] MEDS ORDERED: SODIUM CHLORIDE 0.9% 500 ML IV STA ×2 (00:32→01:20)
[2016-09-17] MEDS ORDERED: DIAZEPAM 5 MG/ML 2 ML SYRINGE IVP STA (00:32)
[2016-09-17 00:42] LABS: Basophils # (A) 0.2 k/uL (0-0.2); Basophils % (A) 1 %; CH 28.6; CHCM 32.8; Eosinophils # (A) 0.1 k/uL (0-0.7); Eosinophils % (A) 0 %; HCT 46.7 % (34.0-46.0); HDW 2.61; HGB 15.1 gm/dL (11.4-16.0); Luc # (Auto) 0.25; Luc % (Auto) 1; Lymphocytes # (A) 4.1 k/uL (1.0-4.8); Lymphocytes % (A) 21 %; MCH 28.4 pg (25.0-35.0); MCHC 32.3 g/dL (31.0-37.0); MCV 87.8 fL (80.0-100.0); Monocytes # (A) 0.8 k/uL (0-1.0); Monocytes % (A) 4 %; Neutrophils # (A) 14.4 k/uL (1.3-7.7); Neutrophils % (A) 73 %; RBC 5.33 m/uL (3.80-5.40); RDW 15.3 % (11.5-15.5); WBC 19.8 k/uL (3.8-10.6); WBC (Perox) 19.56
[2016-09-17 00:51] LABS: ALT 29 U/L (9-52); AST 19 U/L (14-36); Alcohol <10 mg/dL; Alkaline Phosphatase 65 U/L (38-126); Anion Gap 13 mmol/L; Blood Urea Nitrogen 34 mg/dL (7-17); Calcium 9.9 mg/dL (8.4-10.2); Carbon Dioxide 26 mmol/L (22-30); Chloride 100 mmol/L (98-107); Glucose 105 mg/dL (74-99); Magnesium 1.7 mg/dL (1.6-2.3); Non-African American GFR(MDRD) 52 (>60 ml/min/1.73 sqM); Potassium 3.8 mmol/L (3.5-5.1); Sodium 139 mmol/L (137-145); Total Bilirubin 0.3 mg/dL (0.2-1.3); Total Protein 6.6 g/dL (6.3-8.2)
[2016-09-17] MEDS ORDERED: ASPIRIN 81 MG CHEW PO STA (01:20)
[2016-09-17 01:31] LABS: Appearance,Urine Clear (Clear); Bilirubin,Urine Negative (Negative); Glucose,Urine (UA) Negative (Negative); Ketones,Urine Negative (Negative); Leukocyte Esterase,Urine Negative (Negative); Nitrite,Urine Negative (Negative); Protein,Urine Negative (Negative); Specific Gravity,Urine 1.011 (1.001-1.035); UA Billing (MACRO vs. MICRO) CHEM; Urobilinogen,Urine <2.0 mg/dL (<2.0)
[2016-09-17] MEDS ORDERED: MORPHINE SULFATE 4 MG/ML SYRINGE IV STA ×2 (01:50→03:22)
[2016-09-17] MEDS ORDERED: HEPARIN SODIUM,PORCINE 5,000 UNIT/ML 1 ML VIAL IV ONE (01:50)
--- NOTE | 2016-09-17 02:08 | XR ---
EXAM: XR Chest, 1 View CLINICAL HISTORY: Reason: Pain TECHNIQUE: Frontal view of the chest. COMPARISON: 09/09/16. FINDINGS: Lungs: Unremarkable. No consolidation. Pleural space: Unremarkable. No pneumothorax. Heart: Unremarkable. No cardiomegaly. Mediastinum: Unremarkable. Bones/joints: Unremarkable. IMPRESSION: No acute findings or substantial change
[2016-09-17] MEDS: HEPARIN SODIUM,PORCINE/D5W PMX 25,000 UNIT in DEXTROSE/WATER 1 500ML.BAG IV SCH ×2 (02:18→23:56)
[2016-09-17 02:32] LABS: Prothrombin Time 10.3 sec (9.0-12.0)
[2016-09-17 02:38] LABS: Partial Thromboplastin Time 22.7 sec (22.0-30.0)
[2016-09-17] MEDS ORDERED: NITROGLYCERIN SL TABS 0.4 MG TAB SUBLINGUAL PRN ×2 (03:26→03:51)
[2016-09-17] MEDS: SODIUM CHLORIDE 0.9% 1,000 ML IV SCH ×3 (04:11→23:57)
--- NOTE | 2016-09-17 04:22 | ED ---
General Adult HPI - General Chief complaint: Recheck/Abnormal Lab/Rx Stated complaint: R SIDED PAIN/MUSCLE SPASMS Time Seen by Provider: 09/16/16 23:40 Source: EMS Mode of arrival: EMS Limitations: no limitations - History of Present Illness Initial comments: This patient is a 55-year-old woman who presents with the chief complaint that she is having spasms throughout her entire body. She states that starting early in the afternoon she began having muscle spasms. she demonstrates cramping of the bilateral hands and forearms, consistent with carpal pedal spasm. She states the spasms have intermittently been affecting most of her body. She indicates the abdominal wall, the back, legs, as well as the upper extremities. The patient also states that she has been having periods of breaking into a sweat, and she was also having some chest pressure. The patient notes that she has been told she has a 100% occlusion of one of the coronary arteries. She states she was deemed not a candidate for bypass operation. The patient does deny other anginal type symptoms. Onset/Timin -: days(s) Quality: other Consistency: intermittent (Spasming) Improves with: none Worsens with: none Associated Symptoms: chest pain, diaphoresis Treatments Prior to Arrival: none - Related Data Home Medications Medication Instructions Recorded Confirmed Albuterol Inhaler [Ventolin Hfa 2 inhalation INHALATION RT-Q4H PRN 12/05/1309/05 Inhaler] Carvedilol [Coreg] 3.125 mg PO BID 12/05/13 05/25/16 Methylphenidate HCl [Ritalin] 20 mg PO TID 12/05/13 05/25/16 ALPRAZolam [Xanax] 0.5 mg PO BID PRN 10/30/14 05/25/16 Nitroglycerin Sl Tabs [Nitrostat] 0.4 mg SUBLINGUAL Q5M PRN 10/30/14 05/25/16 PARoxetine [Paxil] 20 mg PO DAILY 11/04/14 05/25/16 Fenofibrate Nanocrystallized 48 mg PO DAILY 05/27/15 05/25/16 [Tricor] Hydrocodone/Acetaminophen 1 tab PO Q6H PRN 05/27/15 05/25/16 [Hydrocodon-Acetaminoph 7.5-325] Omeprazole 20 mg PO BID 05/27/15 05/25/16 Aspirin 81 mg PO DAILY 08/07/15 05/25/16 Amitriptyline HCl [Elavil] 10 mg PO HS 12/13/15 05/25/16 Isosorbide Mononitrate ER [Imdur] 30 mg PO DAILY 12/13/15 05/25/16 Pregabalin [Lyrica] 50 mg PO BID 12/13/15 05/25/16 metFORMIN HCL [Glucophage] 500 mg PO BID 05/25/16 05/25/16 Previous Rx's Medication Instructions Recorded Nicotine 14Mg/24Hr Patch [Habitrol] 1 patch TRANSDERM DAILY #30 patch 05/27/16 Ipratropium-Albuterol Nebulize 3 ml INHALATION QID #1 box 09/09/16 [Duoneb 0.5 mg-3 mg/3 ml Soln] predniSONE 50 mg PO DAILY #5 tab 09/09/16 Allergies Allergy/AdvReac Type Severity Reaction Status Date / Time atorvastatin AdvReac leg cramps Verified 09/09/16 14:41 gabapentin AdvReac Swelling Verified 09/09/16 14:41 Review of Systems ROS Statement: Those systems with pertinent positive or pertinent negative responses have been documented in the HPI. ROS Other: All systems not noted in ROS Statement are negative. Constitutional: Denies: fever, chills, weakness Respiratory: Denies: cough, dyspnea, wheezes, hemoptysis Cardiovascular: Reports: as per HPI, chest pain. Denies: palpitations, orthopnea, edema, syncope Gastrointestinal: Denies: abdominal pain, nausea, vomiting, melena, hematochezia Genitourinary: Denies: dysuria, hematuria Musculoskeletal: Reports: myalgia. Denies: back pain Skin: Denies: rash Neurological: Denies: headache, weakness, numbness Psychiatric: Reports: anxiety Hematological/Lymphatic: Denies: easy bleeding Past Medical History Past Medical History: Coronary Artery Disease (CAD), Chest Pain / Angina, COPD, Diabetes Mellitus, GERD/Reflux, Hyperlipidemia, Hypertension, Myocardial Infarction (DC), Osteoarthritis (OA), Pulmonary Embolus (PE) Additional Past Medical History / Comment(s): Hep C, IV drug abuse>25 years ago , murmur, SOME BLOCKAGE TO RCA PER HEART CATH 2013, MILD LT SYSTOLIC DYSFUNCTIONstroke behind eye 3 mos. ago, neuropathy Last Myocardial Infarction Date:: 2010 History of Any Multi-Drug Resistant Organisms: None Reported Past Surgical History: Section, Heart Catheterization, Tubal Ligation Additional Past Surgical History / Comment(s): STRESS TEST, HERB Past Anesthesia/Blood Transfusion Reactions: No Reported Reaction Date of Last Stent Placement:: 2010 Past Psychological History: Anxiety, Depression Additional Psychological History / Comment(s): lives with boyfriend, pt is independant, works as teamleader in factory. Smoking Status: Current every day smoker Past Alcohol Use History: None Reported Additional Past Alcohol Use History / Comment(s): has smoked <ppd since AGE 16( 1976) 1/2 PPD Past Drug Use History: None Reported Additional Drug Use History / Comment(s): AT TIME OF THIS ADMIT-PT DENIED ANY DRUG ABUSE PAST OR CURRENT-PT DENIES BUT PREVIOUS ADMIT CHARTING REFLECTED PAST USE. - Past Family History Mother Family Medical History: Myocardial Infarction (DC) Father Family Medical History: Unable to Obtain Additional Family Medical History / Comment(s): PT STTED HER FATHER IN MVA 1968 General Exam Limitations: no limitations General appearance: alert, in no apparent distress Head exam: Present: atraumatic, normocephalic Eye exam: Present: normal appearance. Absent: scleral icterus, conjunctival injection ENT exam: Present: normal oropharynx Neck exam: Present: normal inspection Respiratory exam: Present: normal lung sounds bilaterally. Absent: respiratory distress, wheezes, rales, rhonchi, stridor Cardiovascular Exam: Present: regular rate, normal rhythm, normal heart sounds. Absent: systolic murmur, diastolic murmur, rubs, gallop GI/Abdominal exam: Present: soft, normal bowel sounds. Absent: distended, tenderness, guarding, rebound, mass, pulsatile mass, hernia Extremities exam: Present: normal inspection, normal capillary refill. Absent: pedal edema, calf tenderness Back exam: Present: normal inspection. Absent: CVA tenderness (R), CVA tenderness (L) Neurological exam: Present: alert Psychiatric exam: Present: anxious Skin exam: Present: warm, dry, intact, normal color. Absent: rash Course Vital Signs 09/16/16 09/17/16 09/17/16 23:36 00:44 02:22 Temperature 98.3 F 97.7 F Pulse Rate 95 86 83 Respiratory 24 20 20 Rate Blood Pressure 138/68 109/61 127/71 O2 Sat by Pulse 96 94 L 96 Oximetry 09/17/16 09/17/16 03:18 04:24 Temperature 97.8 F Pulse Rate 84 88 Respiratory 20 20 Rate Blood Pressure 134/72 124/65 O2 Sat by Pulse 94 L 95 Oximetry EKG Findings - EKG Comments: EKG Findings:: Patient's 12-lead EKG does show T inversions inferior and laterally suggestive of ischemia. In comparison with the previous EKG the T inversions in 1 and aVL appear new. - EKG Results: EKG: interpreted by ERMD, sinus rhythm (Rate 81 bpm), normal axis - Blocks, [place], Hypertrophy, ST Abn: Repolarization changes or abnormalities: ST or T wave suggestive of ischemia - DC, Pacemaker, Normal: Myocardial infarction: anterior DC (old age or indeterminate) Medical Decision Making - Medical Decision Making Patient's 55-year-old woman complaining of muscle spasms throughout her body. She also had some chest tightness and with the T inversions that appear new, will admit the patient to be seen by cardiology. The patient's troponin did come back mildly elevated and patient's placed on heparin. Following medication she has had resolution of the chest symptoms though she does still complain of the intermittent spasms to the extremities. - Lab Data Result diagrams: 09/16/16 23:43 09/16/16 23:43 Lab Results 09/16/16 09/16/16 09/16/16 Range/Units 23:43 23:43 23:43 WBC 19.8 H (3.8-10.6) k/uL RBC 5.33 (3.80-5.40) m/uL Hgb 15.1 (11.4-16.0) gm/dL Hct 46.7 H (34.0-46.0) % MCV 87.8 (80.0-100.0) fL MCH 28.4 (25.0-35.0) pg MCHC 32.3 (31.0-37.0) g/dL RDW 15.3 (11.5-15.5) % Plt Count 326 (150-450) k/uL Neutrophils % 73 % Lymphocytes % 21 % Monocytes % 4 % Eosinophils % 0 % Basophils % 1 % Neutrophils # 14.4 H (1.3-7.7) k/uL Lymphocytes # 4.1 (1.0-4.8) k/uL Monocytes # 0.8 (0-1.0) k/uL Eosinophils # 0.1 (0-0.7) k/uL Basophils # 0.2 (0-0.2) k/uL PT (9.0-12.0) sec INR (<1.1) APTT (22.0-30.0) sec Sodium 139 (137-145) mmol/L Potassium 3.8 (3.5-5.1) mmol/L Chloride 100 (98-107) mmol/L Carbon Dioxide 26 (22-30) mmol/L Anion Gap 13 mmol/L BUN 34 H (7-17) mg/dL Creatinine 1.10 H (0.52-1.04) mg/dL Est GFR (MDRD) Af Amer >60 (>60 ml/min/1.73 sqM) Est GFR (MDRD) Non-Af 52 (>60 ml/min/1.73 sqM) Glucose 105 H (74-99) mg/dL Plasma Lactic Acid [place] (0.7-2.0) mmol/L Calcium 9.9 (8.4-10.2) mg/dL Magnesium 1.7 (1.6-2.3) mg/dL Total Bilirubin 0.3 (0.2-1.3) mg/dL AST 19 (14-36) U/L ALT 29 (9-52) U/L Alkaline Phosphatase 65 (38-126) U/L Troponin I 0.074 H* (0.000-0.034) ng/mL Total Protein 6.6 (6.3-8.2) g/dL Albumin 3.8 (3.5-5.0) g/dL Urine Color Urine Appearance (Clear) Urine pH (5.0-8.0) Ur Specific [place] (1.001-1.035) Urine Protein (Negative) Urine Glucose (UA) (Negative) Urine Ketones (Negative) Urine Blood (Negative) Urine Nitrite (Negative) Urine Bilirubin (Negative) Urine Urobilinogen (<2.0) mg/dL Ur Leukocyte Esterase (Negative) Serum Alcohol <10 mg/dL 09/17/16 09/17/16 09/17/16 Range/Units 00:00 00:40 01:13 WBC (3.8-10.6) k/uL RBC (3.80-5.40) m/uL Hgb (11.4-16.0) gm/dL Hct (34.0-46.0) % MCV (80.0-100.0) fL MCH (25.0-35.0) pg MCHC (31.0-37.0) g/dL RDW (11.5-15.5) % Plt Count (150-450) k/uL Neutrophils % % Lymphocytes % % Monocytes % % Eosinophils % % Basophils % % Neutrophils # (1.3-7.7) k/uL Lymphocytes # (1.0-4.8) k/uL Monocytes # (0-1.0) k/uL Eosinophils # (0-0.7) k/uL Basophils # (0-0.2) k/uL PT 10.3 (9.0-12.0) sec INR 1.0 (<1.1) APTT 22.7 (22.0-30.0) sec Sodium (137-145) mmol/L Potassium (3.5-5.1) mmol/L Chloride (98-107) mmol/L Carbon Dioxide (22-30) mmol/L Anion Gap mmol/L BUN (7-17) mg/dL Creatinine (0.52-1.04) mg/dL Est GFR (MDRD) Af Amer (>60 ml/min/1.73 sqM) Est GFR (MDRD) Non-Af (>60 ml/min/1.73 sqM) Glucose (74-99) mg/dL Plasma Lactic Acid [place] 2.4 H* (0.7-2.0) mmol/L Calcium (8.4-10.2) mg/dL Magnesium (1.6-2.3) mg/dL Total Bilirubin (0.2-1.3) mg/dL AST (14-36) U/L ALT (9-52) U/L Alkaline Phosphatase (38-126) U/L Troponin I (0.000-0.034) ng/mL Total Protein (6.3-8.2) g/dL Albumin (3.5-5.0) g/dL Urine Color Light Yellow Urine Appearance Clear (Clear) Urine pH 5.0 (5.0-8.0) Ur Specific [place] 1.011 (1.001-1.035) Urine Protein Negative (Negative) Urine Glucose (UA) Negative (Negative) Urine Ketones Negative (Negative) Urine Blood Negative (Negative) Urine Nitrite Negative (Negative) Urine Bilirubin Negative (Negative) Urine Urobilinogen <2.0 (<2.0) mg/dL Ur Leukocyte Esterase Negative (Negative) Serum Alcohol mg/dL Critical Care Time Critical Care Time: Yes (35 minutes) Disposition Clinical Impression: Unstable angina pectoris Disposition: ADMITTED IP TO THIS HOSP Condition: Serious
[2016-09-17 04:38] LABS: Glucose,Whole Blood 89 mg/dL (75-99)
[2016-09-17] MEDS ORDERED: Potassium Replacement Protocol 1 EACH MISC MISCELLANE PRN (04:44)
[2016-09-17] MEDS ORDERED: Magnesium Replacement Protocol 1 EACH MISC MISCELLANE PRN (04:44)
[2016-09-17] MEDS: ALPRAZolam 0.5 MG TAB PO PRN ×3 (04:48→20:15)
[2016-09-17 04:52] LABS: Creatine Kinase MB 2.4 ng/mL (0.0-2.4)
[2016-09-17 04:58] VITALS: BMI 32.5
[2016-09-17 04:59] LABS: Troponin I 0.072 ng/mL (0.000-0.034)
[2016-09-17] MEDS ORDERED: POTASSIUM CHLORIDE ER 20 MEQ TAB.ER PO SCH ×2 (05:00→11:00)
[2016-09-17] MEDS: HYDROcodone/APAP 7.5-325MG 1 EACH TAB PO PRN ×4 (05:14→23:58)
[2016-09-17] MEDS: MAGNESIUM SULFATE-D5W PMX 1 GM in DEXTROSE/WATER 1 100ML.BAG IVPB SCH ×2 (05:15→06:32)
[2016-09-17] MEDS: MORPHINE SULFATE 4 MG/ML SYRINGE IV PRN ×5 (06:33→21:46)
[2016-09-17] MEDS ORDERED: CARVEDILOL 3.125 MG TAB PO SCH (09:00)
[2016-09-17] MEDS: NICOTINE 14MG/24HR PATCH TRANSDERM SCH (09:04)
[2016-09-17 09:13] LABS: ALT 31 U/L (9-52); AST 23 U/L (14-36); Alkaline Phosphatase 67 U/L (38-126); Anion Gap 9 mmol/L; Blood Urea Nitrogen 33 mg/dL (7-17); Calcium 8.8 mg/dL (8.4-10.2); Carbon Dioxide 29 mmol/L (22-30); Chloride 99 mmol/L (98-107); Glucose 104 mg/dL (74-99); Magnesium 2.8 mg/dL (1.6-2.3); Non-African American GFR(MDRD) 55 (>60 ml/min/1.73 sqM); Phosphorous 6.1 mg/dL (2.5-4.5); Sodium 137 mmol/L (137-145); Total Bilirubin 0.6 mg/dL (0.2-1.3); Total Protein 6.4 g/dL (6.3-8.2)
[2016-09-17 09:15] LABS: CH 28.6; CHCM 32.4; HCT 42.8 % (34.0-46.0); HGB 13.9 gm/dL (11.4-16.0); MCH 28.7 pg (25.0-35.0); MCHC 32.5 g/dL (31.0-37.0); MCV 88.5 fL (80.0-100.0); Mean Platelet Volume 7.2; RBC 4.84 m/uL (3.80-5.40); WBC 15.8 k/uL (3.8-10.6); WBC (Perox) 15.33
[2016-09-17 09:30] LABS: Add Differential Manual Differential
[2016-09-17 09:32] LABS: Nucleated Red Blood Cells 0 /100 WBC (0-0); Polychromasia Present; Total Cells Counted 100
[2016-09-17] MEDS: IPRATROPIUM-ALBUTEROL 3 ML NEB INHALATION SCH ×4 (09:38→20:51)
[2016-09-17 09:40] LABS: Potassium 3.6 mmol/L (3.5-5.1)
[2016-09-17] MEDS: PANTOPRAZOLE 40 MG TABLET PO SCH ×2 (09:52→17:38)
[2016-09-17] MEDS: PREGABALIN 50 MG CAP PO SCH ×2 (09:52→20:15)
[2016-09-17] MEDS: HEPARIN SODIUM,PORCINE 5,000 UNIT/ML 1 ML VIAL IV PRN ×2 (10:57→18:42)
[2016-09-17 13:07] LABS: Creatine Kinase MB 2.9 ng/mL (0.0-2.4); Troponin I 0.057 ng/mL (0.000-0.034)
[2016-09-17] MEDS ORDERED: busPIRone HCl 5 MG TAB PO PRN (14:42)
--- NOTE | 2016-09-17 15:19 | P.CRDCN ---
History of Present Illness Consult date: 09/17/16 History of present illness: This is a pleasant 55-year-old female patient with a past medical history significant for coronary artery disease, hypertension, dyslipidemia, and significant history of smoking, presented to the emergency room complaining of aching all over her body. The patient describes intermittent episodes of chest discomfort as well as exertional dyspnea. The chest discomfort seems to be suggestive of angina where the patient stated that is mostly with exertion. The EKG showed sinus rhythm with nonspecific changes in the inferolateral leads. The cardiac enzymes were checked and came in to be abnormal consistent with acute NV. In view of the patient's history as well as multiple risk factors I recommended proceeding with heart catheterization. Past Medical History Past Medical History: Coronary Artery Disease (CAD), Chest Pain / Angina, COPD, Diabetes Mellitus, GERD/Reflux, Hyperlipidemia, Hypertension, Myocardial Infarction (NV), Osteoarthritis (OA), Pulmonary Embolus (PE) Additional Past Medical History / Comment(s): Hep C, IV drug abuse>25 years ago , murmur, SOME BLOCKAGE TO RCA PER HEART CATH 2013, MILD LT SYSTOLIC DYSFUNCTIONstroke behind eye 3 mos. ago, neuropathy Last Myocardial Infarction Date:: 2010 History of Any Multi-Drug Resistant Organisms: None Reported Past Surgical History: Section, Heart Catheterization, Tubal Ligation Additional Past Surgical History / Comment(s): STRESS TEST, HERB Past Anesthesia/Blood Transfusion Reactions: No Reported Reaction Date of Last Stent Placement:: 2010 Past Psychological History: Anxiety, Depression Additional Psychological History / Comment(s): lives with boyfriend, pt is independant, works as teamleader in factory. Smoking Status: Current every day smoker Past Alcohol Use History: None Reported Additional Past Alcohol Use History / Comment(s): has smoked <ppd since AGE 16( 1976) 1/2 PPD Past Drug Use History: None Reported Additional Drug Use History / Comment(s): AT TIME OF THIS ADMIT-PT DENIED ANY DRUG ABUSE PAST OR CURRENT-PT DENIES BUT PREVIOUS ADMIT CHARTING REFLECTED PAST USE. - Past Family History Mother Family Medical History: Myocardial Infarction (NV) Father Family Medical History: Unable to Obtain Additional Family Medical History / Comment(s): PT STTED HER FATHER IN MVA 1968 Medications and Allergies Home Medications Medication Instructions Recorded Confirmed Type Albuterol Inhaler [Ventolin Hfa 2 puff INHALATION RT-QID PRN 07/17/14 04/29/17 History Inhaler] Carvedilol [Coreg] 3.125 mg PO BID 12/05/13 09/17/16 History Methylphenidate HCl [Ritalin] 20 mg PO TID 12/05/13 09/17/16 History ALPRAZolam [Xanax] 0.5 mg PO DAILY PRN 10/30/14 09/17/16 History Nitroglycerin Sl Tabs [Nitrostat] 0.4 mg SUBLINGUAL Q5M PRN 10/30/14 09/17/16 History PARoxetine [Paxil] 20 mg PO DAILY 11/04/14 09/17/16 History Fenofibrate Nanocrystallized 48 mg PO DAILY 05/27/15 09/17/16 History [Tricor] Hydrocodone/Acetaminophen 1 tab PO TID PRN 05/27/15 09/17/16 History [Hydrocodon-Acetaminoph 7.5-325] Omeprazole 20 mg PO BID 05/27/15 09/17/16 History Aspirin 81 mg PO DAILY 08/07/15 09/17/16 History Amitriptyline HCl [Elavil] 10 mg PO HS 12/13/15 09/17/16 History metFORMIN HCL [Glucophage] 500 mg PO BID 05/25/16 09/17/16 History Losartan [Cozaar] 50 mg PO BID 09/17/16 09/17/16 History Pregabalin [Lyrica] 75 mg PO BID 09/17/16 09/17/16 History busPIRone HCL [Buspar] 7.5 mg PO BID PRN 09/17/16 09/17/16 History traZODone HCL [Desyrel] 100 mg PO HS 09/17/16 09/17/16 History Allergies Allergy/AdvReac Type Severity Reaction Status Date / Time gabapentin Allergy Swelling Verified 09/17/16 11:09 atorvastatin AdvReac Leg Cramps Verified 09/17/16 11:09 Physical Exam Vitals: Vital Signs Temp Pulse Pulse Resp BP BP Pulse Ox 09/17/16 12:00 97.8 F 68 13 94/61 93 L 09/17/16 09:48 88 09/17/16 09:38 74 97 09/17/16 08:00 97.6 F 86 22 100/60 94 L 09/17/16 05:50 78 17 136/69 92 L 09/17/16 05:40 78 17 136/69 92 L 09/17/16 05:30 77 15 136/69 94 L 09/17/16 05:20 77 17 136/69 94 L 09/17/16 05:10 78 28 H 136/69 94 L 09/17/16 05:00 79 75 22 136/69 95 09/17/16 04:50 83 20 136/69 93 L 09/17/16 04:40 97.9 F 73 28 H 136/69 96 09/17/16 04:24 97.8 F 88 20 124/65 95 09/17/16 04:12 97.9 F 75 20 136/69 95 Intake and Output 09/17/16 09/17/16 09/17/16 06:59 14:59 22:59 Intake Total 1448.633 Balance 1448.633 Intake: Intake, IV Titration 948.633 Amount Heparin Sodium,Porcine/ 148.633 D5w Pmx 25,000 unit In Dextrose/Water 1 500ml. bag @ 15 UNITS/KG/HR 24. 49 mls/hr IV .[id number] VERNA Rx#:[id number] Sodium Chloride 0.9% 1, 800 000 ml @ 100 mls/hr IV . Q10H VERNA Rx#:[id number] Oral 500 Other: # Voids 2 Weight 83.3 kg - Constitutional General appearance: no acute distress - Respiratory Respiratory: bilateral: CTA - Cardiovascular Rhythm: regular Heart sounds: normal: S1, S2 Results 09/17/16 08:05 09/17/16 08:05 Cardiac Enzymes 09/17/16 09/17/16 09/17/16 Range/Units 04:04 08:05 11:51 AST 23 (14-36) U/L CK-MB (CK-2) 2.4 2.9 H* (0.0-2.4) ng/mL Troponin I 0.072 H* 0.057 H* (0.000-0.034) ng/mL Coagulation 09/17/16 Range/Units 08:05 APTT 28.2 (22.0-30.0) sec CBC 09/17/16 Range/Units 08:05 WBC 15.8 H (3.8-10.6) k/uL RBC 4.84 (3.80-5.40) m/uL Hgb 13.9 (11.4-16.0) gm/dL Hct 42.8 (34.0-46.0) % Plt Count 264 (150-450) k/uL Comprehensive Metabolic Panel 09/17/16 Range/Units 08:05 Sodium 137 (137-145) mmol/L Potassium 3.6 (3.5-5.1) mmol/L Chloride 99 (98-107) mmol/L Carbon Dioxide 29 (22-30) mmol/L BUN 33 H (7-17) mg/dL Creatinine 1.05 H (0.52-1.04) mg/dL Glucose 104 H (74-99) mg/dL Calcium 8.8 (8.4-10.2) mg/dL AST 23 (14-36) U/L ALT 31 (9-52) U/L Alkaline Phosphatase 67 (38-126) U/L Total Protein 6.4 (6.3-8.2) g/dL Albumin 3.6 (3.5-5.0) g/dL Current Medications Generic Name Dose Route Start Last Admin Trade Name Freq PRN Reason Stop Dose Admin Hydrocodone Bitart/Acetaminophen 1 each 09/17/16 03:51 09/17/16 11:02 [place] 7.5-325 PO 1 each Q6H PRN Administration Pain Albuterol/Ipratropium 3 ml 09/17/16 09:00 09/17/16 13:05 Duoneb 0.5 Mg-3 Mg/3 Ml Soln INHALATION Not Given QID VERNA Alprazolam 0.5 mg 09/17/16 03:51 09/17/16 11:02 Xanax PO 0.5 mg BID PRN Administration Anxiety Amitriptyline HCl 10 mg 09/17/16 21:00 Elavil PO HS VERNA Aspirin 325 mg 09/18/16 09:00 Aspirin PO DAILY VERNA Buspirone HCl 7.5 mg 09/17/16 14:42 Buspar PO BID PRN Anxiety Carvedilol 3.125 mg 09/17/16 09:00 09/17/16 09:04 Coreg PO 3.125 mg BID VERNA Administration Heparin Sodium (Porcine) 0 unit 09/17/16 01:50 09/17/16 10:57 Heparin IV 4,000 unit PER PROTOCOL PRN Administration Low PTT Protocol Heparin Sodium/Dextrose 25,000 500 mls @ 24.49 mls/hr 09/17/16 02:00 09:53 unit/ IV Solution IV 15 units/kg/hr .[id number] VERNA 24.49 mls/hr Protocol Titration 15 UNITS/KG/HR Sodium Chloride 1,000 mls @ 50 mls/hr 09/17/16 03:30 09/17/16 14:19 Saline 0.9% IV 100 mls/hr .Q20H VERNA Administration Insulin Human Lispro 0 unit 09/17/16 17:30 Humalog SQ ACHS [facility] Protocol Losartan Potassium 50 mg 09/17/16 21:00 Cozaar PO BID [facility] Miscellaneous Information 1 each 09/17/16 04:44 Magnesium Per Protocol MISCELLANE DAILY PRN Per Protocol Protocol Miscellaneous Information 1 each 09/17/16 04:44 Potassium Per Protocol MISCELLANE DAILY PRN Per Protocol Protocol Morphine Sulfate 4 mg 09/17/16 03:30 09/17/16 14:20 Morphine Sulfate (Inj) IV 4 mg Q3H PRN Administration Pain Nicotine 1 patch 09/17/16 09:00 09/17/16 09:04 Habitrol 14mg/24hr Patch TRANSDERM 1 patch DAILY [facility] Administration Nitroglycerin 0.4 mg 09/17/16 03:51 Nitrostat SUBLINGUAL Q5M PRN Chest Pain Pantoprazole Sodium 40 mg 09/17/16 09:15 09/17/16 09:52 Protonix PO 40 mg AC-BID [facility] Administration Paroxetine HCl 20 mg 09/17/16 15:30 Paxil PO DAILY [facility] Pregabalin 50 mg 09/17/16 09:00 09/17/16 09:52 Lyrica PO 50 mg BID [facility] Administration Intake and Output 09/17/16 09/17/16 09/17/16 06:59 14:59 22:59 Intake Total 1448.633 Balance 1448.633 Intake: Intake, IV Titration 948.633 Amount Heparin Sodium,Porcine/ 148.633 D5w Pmx 25,000 unit In Dextrose/Water 1 500ml. bag @ 15 UNITS/KG/HR 24. 49 mls/hr IV .[id number] [facility] Rx#:[id number] Sodium Chloride 0.9% 1, 800 000 ml @ 100 mls/hr IV . Q10H VERNA Rx#:[id number] Oral 500 Other: # Voids 2 Weight 83.3 kg 09/17/16 08:05 09/17/16 08:05 Assessment and Plan Plan: Assessment #1 acute non-ST #2 known coronary artery disease #3 multiple risk factors for CAD #4 significant history of smoking. Plan #1 continue the aspirin #2 DC the cord in View of the patient's positive urine for cocaine #3 start the patient on a statin #4 follow-up with the patient
[2016-09-17] MEDS: PARoxetine 20 MG TAB PO SCH (16:36)
[2016-09-17 17:12] LABS: Hemoglobin A1C 7.3 % (4.2-6.1)
[2016-09-17 17:31] LABS: Glucose,Whole Blood 131 mg/dL (75-99)
[2016-09-17] MEDS: INSULIN LISPRO (humaLOG) 300 UNIT/3 ML VIAL SQ SCH ×2 (17:38→21:51)
[2016-09-17] MEDS: AMITRIPTYLINE HCL 10 MG TAB PO SCH (20:15)
[2016-09-17] MEDS: LOSARTAN 50 MG TAB PO SCH (20:15)
[2016-09-17] MEDS: ATORVASTATIN 40 MG TAB PO SCH (20:15)
[2016-09-17 20:49] LABS: Glucose,Whole Blood 166 mg/dL (75-99)
--- NOTE | 2016-09-17 21:54 | HP ---
REASON FOR ADMISSION: Chest pain. HISTORY OF PRESENT ILLNESS: This is a 55-year-old female with a significant past medical history of CAD, comes into the hospital with aching pain in her right bilateral upper extremities. Patient also was stated to have some chest discomfort, midsternal location. This appears to be different from her previous episodes of chest pain and myocardial infarction; however, patient stated that the pain was on exertion. Cardiac enzymes in the emergency room were slightly elevated. EKG did not reveal ST-T wave changes; however, there were some nonspecific changes inferolaterally. Patient's drug screen was positive for cocaine. Denies having any headaches, blurry vision, nausea, vomiting, diarrhea. Patient states to have a generalized feeling of achiness all over. Denies having any recent upper respiratory symptoms. Past medical history includes CAD. She also has diabetes mellitus and dyslipidemia, pulmonary embolism, COPD. Past surgical history includes cardiac catheterization , tubal ligation. SOCIAL HISTORY: Polysubstance use, lives with her boyfriend, smokes cigarettes. Denies any alcohol use. FAMILY HISTORY: Not pertinent to current admission. REVIEW OF SYSTEMS: Fourteen-point review of system was done which did not reveal any abnormalities other than discussed above. Medications include: 1. Albuterol. 2. Coreg. 3. Ritalin. 4. Xanax. 5. Paroxetine. 6. TriCor. 7. [place]. 8. Omeprazole. 9. Aspirin. 10. Elavil. 11. Metformin. 12. Warfarin. 13. Lyrica. 14. BuSpar. 15. Trazodone. ALLERGIES TO ATORVASTATIN WHICH INCLUDE LEG CRAMPS AND GABAPENTIN. PHYSICAL EXAM: Temperature is 97.9, heart rate 68, respiratory rate 13, blood pressure 94/61. GENERALLY: Patient appears to be alert, oriented x3. HEENT: The pupils are equal and reactive to light and accommodation. HEART: S1, S2 present. No murmur appreciated. LUNGS: Good air entry. No wheezing or rhonchi noted. ABDOMINAL EXAM: Soft, nontender, no organomegaly appreciated. GENITOURINARY: No Toribio in place. EXTREMITIES: Pulses can be palpated distally. Denies any tenderness on gross palpation. SKIN: On a gross skin exam does not appear to have any purpura or any skin rashes that were noted. NEUROLOGICALLY: Grossly cranial nerves 2-12 intact. No motor or sensory deficits noted. Laboratory data include hemoglobin 13.9, hematocrit 42.8, white count of 15.8, platelets of 261. Sodium 137, potassium 3.2, chloride 99, bicarb 29, BUN 33, creatinine of 1.05. Troponin peak of 0.072. ASSESSMENT: 1. Non-Q-wave myocardial infarction. 2. History of coronary artery disease. 3. Ongoing tobacco use. 4. Chronic obstructive pulmonary disease. 5. Polysubstance use. 6. History of hypertension. 7. Diabetes mellitus. 8. Attention deficit hyperactivity disorder. 9. Depression. 10. Gastroesophageal reflux disease. 11. Anxiety. PLAN: Continue heparin. Coreg is discontinued, as patient was positive for cocaine. Patient will undergo a heart catheterization as recommended by the handhole machine operator. Continue serial troponins at this time. Discussion with regards to cessation of use of cocaine known history of CAD will be made. Will hold off on using Ritalin as well at this time. Patient can be triaged out of the intensive care unit. Continue telemetry monitoring. Medications were reconciled appropriately. Atorvastatin was initiated. Patient states to have some leg cramps; however, ( ) NSTEMI, patient will need to be on the medication. On discharge, pravastatin could be administered if patient has had a history of myopathy in the past. Will follow.
[2016-09-18 06:12] LABS: Glucose,Whole Blood 159 mg/dL (75-99)
[2016-09-18] MEDS: INSULIN LISPRO (humaLOG) 300 UNIT/3 ML VIAL SQ SCH ×4 (06:37→21:51)
[2016-09-18] MEDS: PANTOPRAZOLE 40 MG TABLET PO SCH ×2 (06:37→17:45)
[2016-09-18 07:06] LABS: Basophils % (A) 0 %; CH 28.3; CHCM 31.6; Eosinophils # (A) 0.2 k/uL (0-0.7); Eosinophils % (A) 2 %; HDW 2.69; HGB 11.4 gm/dL (11.4-16.0); Hypochromasia Slight; Luc # (Auto) 0.16; Luc % (Auto) 2; Lymphocytes # (A) 3.5 k/uL (1.0-4.8); Lymphocytes % (A) 34 %; MCH 28.6 pg (25.0-35.0); MCHC 31.8 g/dL (31.0-37.0); MCV 89.9 fL (80.0-100.0); Mean Platelet Volume 6.8; Monocytes # (A) 0.5 k/uL (0-1.0); Monocytes % (A) 5 %; Neutrophils % (A) 58 %; RDW 14.8 % (11.5-15.5); WBC 10.5 k/uL (3.8-10.6); WBC (Perox) 10.05
[2016-09-18 07:14] LABS: Magnesium 2.1 mg/dL (1.6-2.3)
[2016-09-18] MEDS: HEPARIN SODIUM,PORCINE 5,000 UNIT/ML 1 ML VIAL IV PRN (07:48)
[2016-09-18] MEDS: MORPHINE SULFATE 4 MG/ML SYRINGE IV PRN ×2 (07:50→20:00)
[2016-09-18] MEDS: NICOTINE 14MG/24HR PATCH TRANSDERM SCH (07:54)
[2016-09-18] MEDS: ASPIRIN 325 MG TAB PO SCH (07:56)
[2016-09-18] MEDS: LOSARTAN 50 MG TAB PO SCH ×2 (07:56→20:00)
[2016-09-18] MEDS: PARoxetine 20 MG TAB PO SCH (07:57)
[2016-09-18] MEDS: PREGABALIN 50 MG CAP PO SCH ×2 (08:00→21:49)
[2016-09-18] MEDS: IPRATROPIUM-ALBUTEROL 3 ML NEB INHALATION SCH ×4 (09:50→20:45)
[2016-09-18] MEDS: HEPARIN SODIUM,PORCINE/D5W PMX 25,000 UNIT in DEXTROSE/WATER 1 500ML.BAG IV SCH (11:20)
[2016-09-18 11:21] LABS: Glucose,Whole Blood 96 mg/dL (75-99)
[2016-09-18] MEDS: ALPRAZolam 0.5 MG TAB PO PRN ×2 (11:25→20:00)
[2016-09-18] MEDS: HYDROcodone/APAP 7.5-325MG 1 EACH TAB PO PRN ×3 (11:25→23:30)
--- NOTE | 2016-09-18 13:33 | P.PN ---
Subjective Principal diagnosis: Acute coronary event This is a pleasant 55-year-old female patient with a past medical history significant for coronary artery disease, hypertension, dyslipidemia, and significant history of smoking, presented to the emergency room complaining of aching all over her body. The patient describes intermittent episodes of chest discomfort as well as exertional dyspnea. The chest discomfort seems to be suggestive of angina where the patient stated that is mostly with exertion. The EKG showed sinus rhythm with nonspecific changes in the inferolateral leads. The cardiac enzymes were checked and came in to be abnormal consistent with acute CA. In view of the patient's history as well as multiple risk factors I recommended proceeding with heart catheterization. Meanwhile I will continue the current medical treatment. I would continue holding the beta maría because the patient urine check was positive for cocaine. Objective - Vital Signs Vital signs: Vital Signs Temp 97.0 F L 09/18/16 11:51 Pulse 65 09/18/16 11:51 Resp 16 09/18/16 11:51 BP 105/60 09/18/16 11:51 Pulse Ox 97 09/18/16 11:51 Intake & Output 09/17/16 09/18/16 09/18/16 18:59 06:59 18:59 Intake Total 2102.921 1253.817 522.525 Balance 2102.921 1253.817 522.525 Weight 107.5 kg Intake: IV 212.1 Heparin Sodium,Porcine/ 70.5 D5w Pmx 25,000 unit In Dextrose/Water 1 500ml. bag @ 15 UNITS/KG/HR 24. 49 mls/hr IV .[id number] VERNA Rx#:[id number] Invasive Line 1 10 Sodium Chloride 0.9% 1, 131.6 000 ml @ 50 mls/hr IV . Q20H VERNA Rx#:[id number] Intake, IV Titration 1362.921 773.817 310.425 Amount Heparin Sodium,Porcine/ 362.921 173.817 310.425 D5w Pmx 25,000 unit In Dextrose/Water 1 500ml. bag @ 15 UNITS/KG/HR 24. 49 mls/hr IV .[id number] VERNA Rx#:[id number] Sodium Chloride 0.9% 1, 1000 600 000 ml @ 50 mls/hr IV . Q20H VERNA Rx#:[id number] Oral 740 480 Other: Voiding Method Toilet Toilet # Voids 1 2 - Constitutional General appearance: Present: no acute distress - Respiratory Respiratory: bilateral: CTA - Cardiovascular Rhythm: regular Heart sounds: normal: S1, S2 - Labs CBC & Chem 7: 09/18/16 06:04 09/17/16 08:05 Labs: Abnormal Lab Results - Last 24 Hours (Table) 09/17/16 09/17/16 09/17/16 Range/Units 16:34 16:40 17:29 APTT 36.1 H (22.0-30.0) sec POC Glucose (mg/dL) 131 H (75-99) mg/dL Hemoglobin A1c 7.3 H (4.2-6.1) % Triglycerides (<150) mg/dL HDL Cholesterol (40-60) mg/dL 09/17/16 09/18/16 09/18/16 Range/Units 20:47 00:28 06:04 APTT 46.2 H (22.0-30.0) sec POC Glucose (mg/dL) 166 H (75-99) mg/dL Hemoglobin A1c (4.2-6.1) % Triglycerides 391 H (<150) mg/dL HDL Cholesterol 35 L (40-60) mg/dL 09/18/16 09/18/16 Range/Units 06:11 06:17 APTT 42.9 H (22.0-30.0) sec POC Glucose (mg/dL) 159 H (75-99) mg/dL Hemoglobin A1c (4.2-6.1) % Triglycerides (<150) mg/dL HDL Cholesterol (40-60) mg/dL Microbiology - Last 24 Hours (Table) 09/17/16 04:04 Blood Culture - Preliminary Blood No Growth after 24 hours Assessment and Plan Plan: Assessment #1 acute non-ST #2 known coronary artery disease #3 multiple risk factors for CAD #4 significant history of smoking. Plan #1 continue the aspirin #2 DC the beta maría in view of the patient's positive urine for cocaine #3 start the patient on a statin #4 proceed with heart catheterization
[2016-09-18 16:30] LABS: Glucose,Whole Blood 117 mg/dL (75-99)
--- NOTE | 2016-09-18 19:44 | PN ---
Hospital course and Subjective data: This is a 55-year-old female admitted to the hospital with atypical chest pain, however, did have some features of typical nature. Patient was noted to have a positive drug screen for cocaine. The patient denies ever using cocaine. Patient does have a significant history of CAD and a previous intervention. Today, patient was seen in follow up, states that her symptoms are completely relieved. Denies having any headaches, blurry vision, nausea, vomiting, diarrhea. Cardiac enzymes x3 were negative. PHYSICAL EXAMINATION: VITAL SIGNS: Temperature 97.5, heart rate is 73, respiratory rate 16, blood pressure 95/61. Saturating 95% on room air. GENERALLY: Patient appears to be alert, oriented x3. HEENT: The pupils are equal and reactive to light and accommodation. HEART: S1, S2 present. No murmur appreciated. LUNGS: Good air entry. No wheezing or rhonchi noted. ABDOMINAL EXAM: Soft, nontender, no organomegaly appreciated. GENITOURINARY: No Toribio in place. EXTREMITIES: Pulses can be palpated distally. Denies any tenderness on gross palpation. SKIN: On a gross skin exam does not appear to have any purpura or any skin rashes that were noted. NEUROLOGICALLY: Grossly cranial nerves 2-12 intact. No motor or sensory deficits noted. Laboratory data include hemoglobin of 11.4, hematocrit 36, white count of 10.5, platelets of 196. Glucose levels have been between 117 and 159. ASSESSMENT AND PLAN: 1. Acute non-Q-wave myocardial infarction. 2. Ongoing tobacco use. 3. Chronic obstructive pulmonary disease. 4. Polysubstance use, including positive cocaine drug screen. 5. History of hypertension. 6. Diabetes mellitus. 7. Attention deficit hyperactivity disorder. 8. Depression. 9. Gastroesophageal reflux disease. 10. Anxiety. 11. History of marijuana use. PLAN: Patient is to undergo a cardiac catheterization tomorrow. Continue current medications. Patient is tolerating atorvastatin which initially was indicated an allergy due to leg cramps. There is no indication for myopathy. Creatinine kinase has not been elevated. This was discussed with the patient to continue ongoing care, further plan of care after cardiac catheterization by our car cooper. Repeat labs in the a.m. DVT prophylaxis.
[2016-09-18] MEDS: ATORVASTATIN 40 MG TAB PO SCH (19:59)
[2016-09-18] MEDS: AMITRIPTYLINE HCL 10 MG TAB PO SCH (19:59)
[2016-09-18] MEDS: SODIUM CHLORIDE 0.9% 1,000 ML IV SCH ×2 (20:01→21:49)
[2016-09-18 21:45] LABS: Glucose,Whole Blood 115 mg/dL (75-99)
[2016-09-19] MEDS: HEPARIN SODIUM,PORCINE/D5W PMX 25,000 UNIT in DEXTROSE/WATER 1 500ML.BAG IV SCH (01:45)
[2016-09-19] MEDS: HYDROcodone/APAP 7.5-325MG 1 EACH TAB PO PRN (05:27)
[2016-09-19] MEDS: INSULIN LISPRO (humaLOG) 300 UNIT/3 ML VIAL SQ SCH ×3 (06:18→17:39)
[2016-09-19] MEDS: PANTOPRAZOLE 40 MG TABLET PO SCH ×2 (06:19→18:13)
[2016-09-19] MEDS: ASPIRIN 325 MG TAB PO SCH (06:19)
[2016-09-19] MEDS: PARoxetine 20 MG TAB PO SCH (06:19)
[2016-09-19] MEDS: NICOTINE 14MG/24HR PATCH TRANSDERM SCH (06:20)
[2016-09-19 06:28] LABS: Glucose,Whole Blood 116 mg/dL (75-99)
[2016-09-19] MEDS: IPRATROPIUM-ALBUTEROL 3 ML NEB INHALATION SCH ×4 (07:38→20:33)
[2016-09-19 07:41] LABS: Basophils % (A) 0 %; CH 28.1; CHCM 31.1; Eosinophils # (A) 0.2 k/uL (0-0.7); Eosinophils % (A) 3 %; HCT 34.8 % (34.0-46.0); HDW 2.57; Hypochromasia Slight; Luc # (Auto) 0.08; Luc % (Auto) 1; Lymphocytes # (A) 2.2 k/uL (1.0-4.8); Lymphocytes % (A) 33 %; MCH 28.7 pg (25.0-35.0); MCHC 31.7 g/dL (31.0-37.0); MCV 90.7 fL (80.0-100.0); Mean Platelet Volume 7.8; Monocytes # (A) 0.3 k/uL (0-1.0); Monocytes % (A) 4 %; Neutrophils % (A) 59 %; RBC 3.83 m/uL (3.80-5.40); RDW 14.9 % (11.5-15.5); WBC 6.7 k/uL (3.8-10.6); WBC (Perox) 6.51
[2016-09-19 08:03] LABS: ALT 27 U/L (9-52); AST 13 U/L (14-36); Alkaline Phosphatase 59 U/L (38-126); Anion Gap 5 mmol/L; Blood Urea Nitrogen 18 mg/dL (7-17); Calcium 8.4 mg/dL (8.4-10.2); Carbon Dioxide 24 mmol/L (22-30); Chloride 108 mmol/L (98-107); Glucose 107 mg/dL (74-99); Non-African American GFR(MDRD) >60 (>60 ml/min/1.73 sqM); Potassium 4.5 mmol/L (3.5-5.1); Sodium 137 mmol/L (137-145); Total Bilirubin 0.3 mg/dL (0.2-1.3); Total Protein 5.2 g/dL (6.3-8.2)
[2016-09-19] MEDS ORDERED: ALPRAZolam 0.25 MG TAB PO PRN (08:16)
[2016-09-19] MEDS ORDERED: ASPIRIN 325 MG TAB PO STA (08:16)
[2016-09-19] MEDS ORDERED: SODIUM CHLORIDE 0.9% 1,000 ML in EMPTY BAG 1 BAG IV ONE (08:16)
[2016-09-19] MEDS ORDERED: NITROGLYCERIN SL TABS 0.4 MG TAB SUBLINGUAL PRN (08:16)
[2016-09-19] MEDS ORDERED: ALPRAZolam 0.5 MG TAB PO PRN (08:16)
[2016-09-19] MEDS ORDERED: ATORVASTATIN 80 MG TAB PO STA (08:19)
[2016-09-19] MEDS: PREGABALIN 50 MG CAP PO SCH (08:42)
[2016-09-19] MEDS: LOSARTAN 50 MG TAB PO SCH (08:42)
[2016-09-19] MEDS: MORPHINE SULFATE 4 MG/ML SYRINGE IV PRN ×2 (11:20→18:12)
[2016-09-19 11:49] LABS: Glucose,Whole Blood 112 mg/dL (75-99)
[2016-09-19] MEDS: SODIUM CHLORIDE 0.9% 1,000 ML IV SCH (12:25)
[2016-09-19] MEDS ORDERED: LIDOCAINE 2% INJ 20 MG/ML (20 ML MDV) ONE (12:57)
[2016-09-19] MEDS ORDERED: VERAPAMIL 2.5 MG/ML 2 ML AMP ONE (13:06)
[2016-09-19] MEDS ORDERED: IV FLUID CONTINUATION 1,000 ML IV ONE (13:31)
[2016-09-19] MEDS ORDERED: HYDROmorphone 2 MG/ML 1 ML SYRINGE ONE (13:35)
[2016-09-19] MEDS ORDERED: LIDOCAINE 2% INJ 20 MG/ML SQ ONE (13:39)
[2016-09-19] MEDS ORDERED: HYDROmorphone 2 MG/ML 1 ML SYRINGE IV ONE (13:39)
[2016-09-19] MEDS ORDERED: NITROGLYCERIN 1000MCG/10ML SYRINGE INTRAARTER ONE (13:45)
[2016-09-19] MEDS ORDERED: IOHEXOL 350 MG/ML 125ML BOTTLE INJ ONE (13:56)
[2016-09-19] MEDS ORDERED: RX INFO: IV CONTRAST WAS GIVEN 1 EACH MISC MISCELLANE PRN (13:58)
[2016-09-19] MEDS ORDERED: SODIUM CHLORIDE 0.9% 1,000 ML IV SCH (14:00)
[2016-09-19 14:39] VITALS: RESP 18
[2016-09-19 16:53] LABS: Glucose,Whole Blood 101 mg/dL (75-99)
[2016-09-19 18:34] VITALS: BP 112/67; PULSE 86; TEMP 97
--- NOTE | 2016-09-19 18:36 | DS ---
DATE OF ADMISSION: 09/17/2016 DATE OF DISCHARGE: HOSPITAL COURSE: This is a 55-year-old female with history of CAD who came into the hospital with chest pain and arm numbness and tingling. Patient was noted to have a troponin leak and was admitted with non-Q-wave myocardial infarction. Patient was noted to have cocaine in her drug screen. Patient underwent a cardiac catheterization due to her high risk factors. Apparently she was noted to have complete occlusion of the right coronary circuit; however, there was significant blood flow from the left coronary system. No intervention was performed by the dredge pipe installer. The patient was symptom-free thereafter. Reason for chest pain was attributed to vasospasm likely from use of cocaine. DISCHARGE DIAGNOSES: 1. Non-Q-wave myocardial infarction. 2. Polysubstance use. 3. History of coronary artery disease. 4. Attention deficit hyperactivity disorder. 5. Depression. 6. Gastroesophageal reflux disease. 7. Anxiety. 8. History of hypertension. 9. Chronic obstructive pulmonary disease. 10. Ongoing tobacco use. Medications were reconciled on discharge. Medication changes: patient was recommended to quit taking Ritalin, as she does have significant CAD. Recommendations including tobacco cessation and other substance use were also recommended. Patient was discharged after vascular checks were done in stable condition. Followups are with Dr. Alcazar and Dr. Vegas in one week. This was discussed with the patient. Patient was also started on atorvastatin 40 mg daily for history of CAD. Patient apparently was taken off it due to a previous history of leg cramps. The patient does have recurrent leg cramps without an elevated creatinine kinase. She may be a candidate for pravastatin, as it has been shown to have lesser side effects than other statins. Follow up with Dr. Vegas.
--- NOTE | 2016-09-19 20:13 | CC ---
DATE OF SERVICE: 09/19/2016 PERFORMING PHYSICIAN: Rodney Alcazar M.D., student ambassador. PROCEDURE PERFORMED: Selective right and left coronary angiogram. INDICATION: This is a pleasant 55-year-old female patient who was admitted to the hospital with chest discomfort and shortness of breath and was ruled in for acute [id number] myocardial infarction. The decision was made for heart catheterization. APPROACH: Right common femoral artery. COMPLICATIONS: None. LEVEL OF SEDATION: Moderate with sedation length of about 30 minutes. PROCEDURE DESCRIPTION: After obtaining informed consent, the patient was brought to the cardiac supervisor dental laboratory. The right common femoral artery was cannulated using micropuncture technique. The micropuncture wire passed easily. Then I placed a 6 Grenadian sheath in the right common femoral artery. After that I did selective right and left coronary angiogram using Bryce ( ) for the right coronary system and JL3.5 for the left coronary system. The procedure was completed without any complication. SELECTIVE CORONARY ANGIOGRAM: 1. The right coronary artery is a medium-caliber vessel and it is a dominant vessel. The right coronary artery is subtotally occluded in the proximal portion and fills by collateral from the left coronary system, but the findings seem to be unchanged from before. 2. The left main is a large-caliber vessel and is a short vessel. It is angiographically normal. It bifurcates into the left circumflex and left anterior descending artery. 3. The left circumflex is a large-caliber vessel and it is a non-dominant vessel. The ostial left circumflex appeared to be hazy and diseased in the range of 50%. The proximal left circumflex appeared to be angiographically normal after the ostium and gives rise to the first OM branch, which seems to be angiographically normal. The circumflex after that seems to be angiographically normal. 4. The proximal left anterior descending artery appeared to have mild disease only. The mid LAD appeared to be tortuous with mild disease only. The LAD distally is angiographically normal. The LAD gives rise to 2 small diagonal branches; both are angiographically normal. CONCLUSION: Severe single-vessel coronary artery disease with subtotally occluded proximal right coronary artery that fills by collateral from the left coronary system and seems to be unchanged compared to before. POST-PROCEDURE MANAGEMENT: 1. Maximize medical treatment. 2. Followup with the patient.
--- NOTE | 2016-09-21 10:45 | ECHOF ---
Referral Reason:nstemi MEASUREMENTS -------- HEIGHT: 160.0 cm WEIGHT: 87.1 kg BP: 120/52 RVIDd: 2.4 cm (< 3.3) IVSd: 1.4 cm (0.6 - 1.1) LVIDd: 4.4 cm (3.9 - 5.3) LVPWd: 1.3 cm (0.6 - 1.1) IVSs: 1.6 cm LVIDs: 3.1 cm LVPWs: 1.5 cm LA Diam: 3.6 cm (2.7 - 3.8) LAESV Index (A-L): 26.18 ml/m Ao Diam: 2.8 cm (2.0 - 3.7) AV Cusp: 2.0 cm (1.5 - 2.6) LA Diam: 3.2 cm (2.7 - 3.8) MV EXCURSION: 15.618 mm (> 18.000) MV EF SLOPE: 82 mm/s (70 - 150) EPSS: 0.3 cm MV E Chaov: 0.79 m/s MV A Chavo: 0.99 m/s MV E/A Ratio: 0.79 RAP: 5.00 mmHg RVSP: 18.63 mmHg FINDINGS -------- Sinus rhythm. This was a technically adequate study. There is moderate concentric left ventricular hypertrophy. Overall left ventricular systolic function is normal with, an EF between 55 - 60 %. The right ventricle is normal in size. Normal LA size by volume 22+/-6 ml/m2. The right atrial size is normal. There is mild aortic valve sclerosis. There is no evidence of aortic regurgitation. Mild mitral annular calcification present. Mild mitral regurgitation is present. Mild tricuspid regurgitation present. There is no evidence of pulmonary hypertension. The right ventricular systolic pressure, as measured by Doppler, is 18.63mmHg. Trace/mild (physiologic) pulmonic regurgitation. The aortic root size is normal. There is no pericardial effusion. CONCLUSIONS -------- 1. There is moderate concentric left ventricular hypertrophy. 2. There is mild aortic valve sclerosis. 3. Mild mitral annular calcification present. 4. Mild mitral regurgitation is present. 5. Mild tricuspid regurgitation present. 6. There is no evidence of pulmonary hypertension. 7. The right ventricular systolic pressure, as measured by Doppler, is 18.63mmHg. 8. Trace/mild (physiologic) pulmonic regurgitation. CLASSIFIED AD TAKER: Ibis Anne RDCS
== END 2016-09-19 21:16 | disposition home or self-care (01) | DRG 282 ==
LOC: EC 23:32 → 6ICU 09-17 03:30 → 6SEL 09-17 18:00
PROVIDERS: ADMIT Hospitalist; ATTEND Hospitalist
PROC: 4A023N7 Measurement of Cardiac Sampling and Pressure, Left Heart, Percutaneous Approach (ICD-10-PCS; 2016-09-19)
PROC: B2111ZZ Fluoroscopy of Multiple Coronary Arteries using Low Osmolar Contrast (ICD-10-PCS; principal; 2016-09-19 13:12)
DX: I21.4 Non-ST elevation (NSTEMI) myocardial infarction (principal); E11.40 Type 2 diabetes mellitus with diabetic neuropathy, unspecified; I25.82 Chronic total occlusion of coronary artery; I25.111 Atherosclerotic heart disease of native coronary artery with angina pectoris with documented spasm; I10 Essential (primary) hypertension; E78.5 Hyperlipidemia, unspecified; J44.9 Chronic obstructive pulmonary disease, unspecified; I25.2 Old myocardial infarction; M62.838 Other muscle spasm; R01.1 Cardiac murmur, unspecified; F19.90 Other psychoactive substance use, unspecified, uncomplicated; M19.90 Unspecified osteoarthritis, unspecified site; K21.9 Gastro-esophageal reflux disease without esophagitis; F32.9 Major depressive disorder, single episode, unspecified; E78.00 Pure hypercholesterolemia, unspecified; F90.9 Attention-deficit hyperactivity disorder, unspecified type; F41.9 Anxiety disorder, unspecified; F17.210 Nicotine dependence, cigarettes, uncomplicated; Z86.711 Personal history of pulmonary embolism; Z79.899 Other long term (current) drug therapy; Z79.82 Long term (current) use of aspirin; Z82.49 Family history of ischemic heart disease and other diseases of the circulatory system; Z88.8 Allergy status to other drugs, medicaments and biological substances; Z86.19 Personal history of other infectious and parasitic diseases; Z79.84 Long term (current) use of oral hypoglycemic drugs; Z79.01 Long term (current) use of anticoagulants; Z79.891 Long term (current) use of opiate analgesic; Z98.51 Tubal ligation status; Z71.6 Tobacco abuse counseling; Z71.51 Drug abuse counseling and surveillance of drug abuser; Z95.5 Presence of coronary angioplasty implant and graft; Z86.69 Personal history of other diseases of the nervous system and sense organs
CPT/HCPCS: 36415; 71010; 80053; 80061; 80306; 80320; 81003; 82550; 82553; 83036; 83605; 83735; 84100; 84484; 85025; 85610; 85730; 87040; 93005; 93306; 93454; 94640; 94760; 96361; 96365; 96366; 96376; 99291

== ENCOUNTER 2016-11-22 14:18 | Inpatient (IN) | payer OTHER ==
[2016-11-22] MEDS ORDERED: IBUPROFEN 600 MG TAB PO STA (14:41)
[2016-11-22] MEDS ORDERED: ACETAMINOPHEN TAB 500 MG TAB PO STA (14:41)
[2016-11-22] MEDS ORDERED: LEVOFLOXACIN 750MG-D5W PMX 750 MG in DEXTROSE/WATER 1 150ML.BAG IVPB STA (14:41)
[2016-11-22] MEDS ORDERED: ALBUTEROL NEBULIZED 7.5 MG, IPRATROPIUM NEBULIZED 0.5 MG, SODIUM CHLORIDE 0.9% NEBULIZ ... INHALATION ONE ×3 (14:41)
[2016-11-22] MEDS ORDERED: methylPREDNISolone SOD SUCCI 125 MG/2 ML VIAL IV STA (14:42)
--- NOTE | 2016-11-22 14:55 | ED ---
General Adult HPI - General Chief complaint: Chest Pain Stated complaint: Altered Mental Status Time Seen by Provider: 11/22/16 14:25 Source: patient, RN notes reviewed Mode of arrival: wheelchair Limitations: no limitations - History of Present Illness Initial comments: Is a 55-year-old female presents emergency Department complaining of having a cough since Monday and shortness of breath. states she's also been very weak and as of today starting to become confused. states last time she had that she had pneumonia. Patient denies any fever chills per patient denies any chest pain or palpitations. Patient states she has been coughing quite a bit coughing up some sputum. Patient denies any abdominal pain she denies any nausea vomiting diarrhea. Patient denies any dysuria hematuria urinary frequency. Patient denies any illegal drugs. Patient denies any alcohol. Patient denies any change her prescriptions. Injury or trauma. Patient denies being lightheaded or dizzy. Patient denies headache patient denies any numbness or focal weakness. - Related Data Home Medications Medication Instructions Recorded Confirmed Albuterol Inhaler [Ventolin Hfa 2 puff INHALATION RT-QID PRN 12/05/13 11/22/16 Inhaler] Carvedilol [Coreg] 3.125 mg PO BID 12/05/13 11/22/16 ALPRAZolam [Xanax] 0.5 mg PO DAILY PRN 10/30/14 11/22/16 Nitroglycerin Sl Tabs [Nitrostat] 0.4 mg SUBLINGUAL Q5M PRN 10/30/14 11/22/16 PARoxetine [Paxil] 20 mg PO DAILY 11/04/14 11/22/16 Hydrocodone/Acetaminophen 1 tab PO TID PRN 05/27/15 11/22/16 [Hydrocodon-Acetaminoph 7.5-325] Omeprazole 20 mg PO BID 05/27/15 11/22/16 Aspirin 81 mg PO DAILY 08/07/15 11/22/16 Amitriptyline HCl [Elavil] 10 mg PO HS 12/13/15 11/22/16 metFORMIN HCL [Glucophage] 500 mg PO TID 05/25/16 11/22/16 Losartan [Cozaar] 50 mg PO BID 09/17/16 11/22/16 Glimepiride [Amaryl] 2 mg PO AC-[id number] 11/22/16 11/22/16 Ipratropium-Albuterol Nebulize 3 ml INHALATION RT-QID 11/22/16 11/22/16 [Duoneb 0.5 mg-3 mg/3 ml Soln] Methylphenidate HCl [Ritalin] 20 mg PO TID 11/22/16 11/22/16 Pregabalin [Lyrica] 100 mg PO BID 11/22/16 11/22/16 Allergies Allergy/AdvReac Type Severity Reaction Status Date / Time gabapentin Allergy Swelling Verified 11/22/16 14:53 atorvastatin AdvReac Leg Cramps Verified 11/22/16 14:53 Review of Systems ROS Statement: Those systems with pertinent positive or pertinent negative responses have been documented in the HPI. ROS Other: All systems not noted in ROS Statement are negative. Past Medical History Past Medical History: Coronary Artery Disease (CAD), Chest Pain / Angina, COPD, Diabetes Mellitus, GERD/Reflux, Hyperlipidemia, Hypertension, Myocardial Infarction (PA), Osteoarthritis (OA), Pulmonary Embolus (PE) Additional Past Medical History / Comment(s): Hep C, IV drug abuse>25 years ago , murmur, SOME BLOCKAGE TO RCA PER HEART CATH 2013, MILD LT SYSTOLIC DYSFUNCTIONstroke behind eye 3 mos. ago, neuropathy Last Myocardial Infarction Date:: 2010 History of Any Multi-Drug Resistant Organisms: None Reported Past Surgical History: Section, Heart Catheterization, Tubal Ligation Additional Past Surgical History / Comment(s): STRESS TEST, HERB Past Anesthesia/Blood Transfusion Reactions: No Reported Reaction Date of Last Stent Placement:: 2010 Past Psychological History: Anxiety, Depression Smoking Status: Current every day smoker Past Alcohol Use History: None Reported Past Drug Use History: None Reported - Past Family History Mother Family Medical History: Myocardial Infarction (PA) Father Family Medical History: Unable to Obtain Additional Family Medical History / Comment(s): PT STTED HER FATHER IN MVA 1968 General Exam - General Exam Comments Initial Comments: GENERAL: Patient is well-developed and well-nourished. Patient is nontoxic and well- hydrated and is in mild distress. Patient does appear very fatigued. ENT: Neck is soft and supple. No significant lymphadenopathy is noted. Oropharynx is clear. Moist mucous membranes. Neck has full range of motion without eliciting any pain. EYES: The sclera were anicteric and conjunctiva were pink and moist. Extraocular movements were intact and pupils were equal round and reactive to light. Eyelids were unremarkable. PULMONARY: She has diminished breath sounds expiratory wheezing and crackles in both bases. CARDIOVASCULAR: There is a regular rate and rhythm without any murmurs gallops or rubs. ABDOMEN: Soft and nontender with normal bowel sounds. No palpable organomegaly was noted. There is no palpable pulsatile mass. SKIN: Skin is clear with no lesions or rashes and otherwise unremarkable. NEUROLOGIC: Patient is alert and oriented x3. Cranial nerves II through XII are grossly intact. Motor and sensory are also intact. Normal speech, volume and content. Symmetrical smile. MUSCULOSKELETAL: Normal extremities with adequate strength and full range of motion. No lower extremity swelling or edema. No calf tenderness. LYMPHATICS: No significant lymphadenopathy is noted PSYCHIATRIC: Normal psychiatric evaluation. Normal interpersonal interactions appears functionally intact in deals appropriately with others. No signs of depression. No signs of anxiety. Limitations: no limitations Course Vital Signs 11/22/16 11/22/16 11/22/16 14:25 14:49 15:04 Temperature 99.3 F 100.4 F H Pulse Rate 97 93 Respiratory 20 22 18 Rate Blood Pressure 104/57 105/58 O2 Sat by Pulse 89 L 94 L Oximetry 11/22/16 11/22/16 11/22/16 15:35 15:51 16:21 Temperature Pulse Rate 88 87 83 Respiratory Rate Blood Pressure O2 Sat by Pulse Oximetry 11/22/16 16:30 Temperature Pulse Rate 84 Respiratory Rate Blood Pressure O2 Sat by Pulse Oximetry Medical Decision Making - Medical Decision Making states that the patient was confused today talking about things that didn't make sense but currently is making more sense at this time. EKG shows normal sinus rhythm at 95 bpm WA interval 190 QRS is 90 QT interval 350 QTC is 449. Patient's EKG shows no ST segment elevation or depression or T- wave abdomen is noted. Chest x-ray shows a right lower lobe pneumonia patient also has elevated troponins I started the patient heparin has been Nitropaste. I started the patient on Levaquin for the pneumonia. I spoke with cardiology he agreed with the treatment. I spoke with Dr. De La Rosa he agreed to admit the patient admitted the patient consult to cardiology - Lab Data Result diagrams: 11/22/16 14:47 11/22/16 14:47 Lab Results 11/22/16 11/22/16 11/22/16 Range/Units 14:47 14:47 14:47 WBC 10.1 (3.8-10.6) k/uL RBC 3.81 (3.80-5.40) m/uL Hgb 11.0 L (11.4-16.0) gm/dL Hct 32.6 L (34.0-46.0) % MCV 85.6 D (80.0-100.0) fL MCH 29.0 (25.0-35.0) pg MCHC 33.9 (31.0-37.0) g/dL RDW 15.7 H (11.5-15.5) % Plt Count 291 (150-450) k/uL Neutrophils % 74 % Lymphocytes % 16 % Monocytes % 5 % Eosinophils % 2 % Basophils % 0 % Neutrophils # 7.5 (1.3-7.7) k/uL Lymphocytes # 1.6 (1.0-4.8) k/uL Monocytes # 0.5 (0-1.0) k/uL Eosinophils # 0.2 (0-0.7) k/uL Basophils # 0.0 (0-0.2) k/uL Hypochromasia Slight PT (9.0-12.0) sec INR (<1.1) APTT (22.0-30.0) sec Sample Site ABG pH (7.35-7.45) ABG pCO2 (35-45) mmHg ABG pO2 (83-108) mmHg ABG HCO3 (21-25) mmol/L ABG Total CO2 (19-24) mmol/L ABG O2 Saturation (94-97) % ABG Base Excess mmol/L FiO2 % Sodium 139 (137-145) mmol/L Potassium 4.0 (3.5-5.1) mmol/L Chloride 101 (98-107) mmol/L Carbon Dioxide 30 (22-30) mmol/L Anion Gap 8 mmol/L BUN 11 (7-17) mg/dL Creatinine 0.97 (0.52-1.04) mg/dL Est GFR (MDRD) Af Amer >60 (>60 ml/min/1.73 sqM) Est GFR (MDRD) Non-Af 60 (>60 ml/min/1.73 sqM) Glucose 125 H (74-99) mg/dL Plasma Lactic Acid Truong (0.7-2.0) mmol/L Calcium 8.5 (8.4-10.2) mg/dL Total Bilirubin 0.5 (0.2-1.3) mg/dL AST 14 (14-36) U/L ALT 16 (9-52) U/L Alkaline Phosphatase 62 (38-126) U/L Total Creatine Kinase 91 (30-135) U/L CK-MB (CK-2) 2.3 (0.0-2.4) ng/mL CK-MB (CK-2) Rel Index 2.5 Troponin I 1.050 H* (0.000-0.034) ng/mL Total Protein 6.1 L (6.3-8.2) g/dL Albumin 3.2 L (3.5-5.0) g/dL 11/22/16 11/22/16 11/22/16 Range/Units 14:47 14:47 15:23 WBC (3.8-10.6) k/uL RBC (3.80-5.40) m/uL Hgb (11.4-16.0) gm/dL Hct (34.0-46.0) % MCV (80.0-100.0) fL MCH (25.0-35.0) pg MCHC (31.0-37.0) g/dL RDW (11.5-15.5) % Plt Count (150-450) k/uL Neutrophils % % Lymphocytes % % Monocytes % % Eosinophils % % Basophils % % Neutrophils # (1.3-7.7) k/uL Lymphocytes # (1.0-4.8) k/uL Monocytes # (0-1.0) k/uL Eosinophils # (0-0.7) k/uL Basophils # (0-0.2) k/uL Hypochromasia PT 10.4 (9.0-12.0) sec INR 1.0 (<1.1) APTT 24.5 (22.0-30.0) sec Sample Site rrad ABG pH 7.38 (7.35-7.45) ABG pCO2 47 H (35-45) mmHg ABG pO2 85 (83-108) mmHg ABG HCO3 27 H (21-25) mmol/L ABG Total CO2 28 H (19-24) mmol/L ABG O2 Saturation 96.0 (94-97) % ABG Base Excess 2.3 mmol/L FiO2 28 % Sodium (137-145) mmol/L Potassium (3.5-5.1) mmol/L Chloride (98-107) mmol/L Carbon Dioxide (22-30) mmol/L Anion Gap mmol/L BUN (7-17) mg/dL Creatinine (0.52-1.04) mg/dL Est GFR (MDRD) Af Amer (>60 ml/min/1.73 sqM) Est GFR (MDRD) Non-Af (>60 ml/min/1.73 sqM) Glucose (74-99) mg/dL Plasma Lactic Acid Truong 1.2 (0.7-2.0) mmol/L Calcium (8.4-10.2) mg/dL Total Bilirubin (0.2-1.3) mg/dL AST (14-36) U/L ALT (9-52) U/L Alkaline Phosphatase (38-126) U/L Total Creatine Kinase (30-135) U/L CK-MB (CK-2) (0.0-2.4) ng/mL CK-MB (CK-2) Rel Index Troponin I (0.000-0.034) ng/mL Total Protein (6.3-8.2) g/dL Albumin (3.5-5.0) g/dL Critical Care Time Critical Care Time: Yes Total Critical Care Time: 35 Disposition Clinical Impression: Non-STEMI (non-ST elevated myocardial infarction), Pneumonia, Acute exacerbation of chronic obstructive pulmonary disease (COPD) Disposition: ADMITTED IP TO THIS HOSP Referrals: Albina Oconnor MD [Primary Care Provider] - 1-2 days Time of Disposition: 16:42
[2016-11-22 14:58] LABS: Basophils % (A) 0 %; CH 27.3; CHCM 32.1; Eosinophils # (A) 0.2 k/uL (0-0.7); Eosinophils % (A) 2 %; HCT 32.6 % (34.0-46.0); HDW 3.18; Hypochromasia Slight; Luc # (Auto) 0.24; Luc % (Auto) 2; Lymphocytes # (A) 1.6 k/uL (1.0-4.8); Lymphocytes % (A) 16 %; MCHC 33.9 g/dL (31.0-37.0); Mean Platelet Volume 8.2; Monocytes # (A) 0.5 k/uL (0-1.0); Monocytes % (A) 5 %; Neutrophils # (A) 7.5 k/uL (1.3-7.7); Neutrophils % (A) 74 %; RBC 3.81 m/uL (3.80-5.40); RDW 15.7 % (11.5-15.5); WBC 10.1 k/uL (3.8-10.6); WBC (Perox) 9.66
[2016-11-22 15:00] LABS: MCV 85.6 fL (80.0-100.0)
[2016-11-22] MEDS: SODIUM CHLORIDE 0.9% 500 ML IV SCH ×3 (15:01→16:16)
[2016-11-22 15:07] LABS: Partial Thromboplastin Time 24.5 sec (22.0-30.0); Prothrombin Time 10.4 sec (9.0-12.0)
[2016-11-22 15:11] LABS: ALT 16 U/L (9-52); AST 14 U/L (14-36); Alkaline Phosphatase 62 U/L (38-126); Anion Gap 8 mmol/L; Blood Urea Nitrogen 11 mg/dL (7-17); Calcium 8.5 mg/dL (8.4-10.2); Carbon Dioxide 30 mmol/L (22-30); Chloride 101 mmol/L (98-107); Glucose 125 mg/dL (74-99); Non-African American GFR(MDRD) 60 (>60 ml/min/1.73 sqM); Sodium 139 mmol/L (137-145); Total Bilirubin 0.5 mg/dL (0.2-1.3); Total Protein 6.1 g/dL (6.3-8.2)
[2016-11-22 15:36] LABS: Creatine Kinase MB 2.3 ng/mL (0.0-2.4)
[2016-11-22 15:40] LABS: Troponin I 1.05 ng/mL (0.000-0.034)
[2016-11-22 15:42] LABS: ABG HCO3 27 mmol/L (21-25); ABG PCO2 47 mmHg (35-45); ABG PH 7.38 (7.35-7.45); ABG PO2 85 mmHg (83-108)
[2016-11-22 15:43] LABS: ABG Base Excess 2.3 mmol/L; ABG TCO2 28 mmol/L (19-24)
[2016-11-22] MEDS ORDERED: ASPIRIN 81 MG CHEW PO STA (16:02)
[2016-11-22] MEDS ORDERED: NITROGLYCERIN OINT 1 INCH/GM PACKET TOPICAL STA (16:02)
[2016-11-22] MEDS ORDERED: HEPARIN SODIUM,PORCINE 5,000 UNIT/ML 1 ML VIAL IV ONE (16:03)
[2016-11-22] MEDS ORDERED: LEVOFLOXACIN 750MG-D5W PMX 750 MG in DEXTROSE/WATER 1 150ML.BAG IVPB SCH (16:45)
[2016-11-22] MEDS ORDERED: NITROGLYCERIN SL TABS 0.4 MG TAB SUBLINGUAL PRN (16:45)
[2016-11-22] MEDS ORDERED: HYDROcodone/APAP 7.5-325MG 1 EACH TAB PO STA (16:46)
[2016-11-22] MEDS: HEPARIN SODIUM,PORCINE/D5W PMX 25,000 UNIT in DEXTROSE/WATER 1 500ML.BAG IV SCH (16:49)
--- NOTE | 2016-11-22 17:20 | XR ---
EXAMINATION TYPE: XR chest 2V DATE OF EXAM: 11/22/2016 COMPARISON: 09/17/2016 HISTORY: Fever TECHNIQUE: Frontal and lateral views of the chest are obtained. FINDINGS: Heart and mediastinum are within normal limits. Costophrenic angles are clear. There are c hest leads. There is increased density over the right medial lung base. Bony thorax is intact. IMPRESSION: There is evidence of pneumonic infiltrate in the right middle lobe that is new compared to last exam. Normal heart.
[2016-11-22 18:59] LABS: Glucose,Whole Blood 189 mg/dL (75-99)
[2016-11-22] MEDS ORDERED: ALBUTEROL NEBULIZED 2.5 MG/3 ML INHALATION PRN (19:35)
[2016-11-22] MEDS ORDERED: IPRATROPIUM-ALBUTEROL 3 ML NEB INHALATION PRN (19:46)
[2016-11-22] MEDS: IPRATROPIUM-ALBUTEROL 3 ML NEB INHALATION SCH (19:57)
[2016-11-22] MEDS ORDERED: IPRATROPIUM-ALBUTEROL 3 ML NEB INHALATION SCH (20:00)
[2016-11-22 20:38] LABS: Glucose,Whole Blood 262 mg/dL (75-99)
[2016-11-22] MEDS: methylPREDNISolone SOD SUCCI 125 MG/2 ML VIAL IV SCH ×2 (20:41→23:32)
[2016-11-22] MEDS: NITROGLYCERIN OINT 1 INCH/GM PACKET TOPICAL SCH ×2 (20:51→23:33)
[2016-11-22] MEDS: AMITRIPTYLINE HCL 10 MG TAB PO SCH (20:54)
[2016-11-22] MEDS: PANTOPRAZOLE 40 MG TABLET PO SCH (20:54)
[2016-11-22] MEDS: INSULIN LISPRO (humaLOG) 300 UNIT/3 ML VIAL SQ SCH (20:54)
[2016-11-22] MEDS: ALPRAZolam 0.5 MG TAB PO PRN (20:54)
[2016-11-22] MEDS: PREGABALIN 100 MG CAP PO SCH (20:54)
[2016-11-22 21:06] LABS: Creatine Kinase MB 2.2 ng/mL (0.0-2.4)
[2016-11-22 21:12] LABS: Troponin I 0.771 ng/mL (0.000-0.034)
[2016-11-22] MEDS: CARVEDILOL 3.125 MG TAB PO SCH (21:41)
[2016-11-22] MEDS: LOSARTAN 50 MG TAB PO SCH (21:41)
[2016-11-22 23:55] VITALS: BMI 31.8
[2016-11-23] MEDS: HEPARIN SODIUM,PORCINE 5,000 UNIT/ML 1 ML VIAL IV PRN (01:14)
[2016-11-23 02:29] LABS: Cholesterol 160 mg/dL (<200); HDL Cholesterol 25 mg/dL (40-60); Triglycerides 254 mg/dL (<150)
[2016-11-23 02:51] LABS: Creatine Kinase MB 2.3 ng/mL (0.0-2.4)
[2016-11-23 02:59] LABS: Troponin I 0.299 ng/mL (0.000-0.034)
[2016-11-23] MEDS: HYDROcodone/APAP 7.5-325MG 1 EACH TAB PO PRN ×3 (04:53→20:57)
[2016-11-23] MEDS: methylPREDNISolone SOD SUCCI 125 MG/2 ML VIAL IV SCH (05:58)
[2016-11-23] MEDS: NITROGLYCERIN OINT 1 INCH/GM PACKET TOPICAL SCH ×4 (05:58→23:04)
[2016-11-23 06:07] LABS: Glucose,Whole Blood 298 mg/dL (75-99)
[2016-11-23] MEDS: INSULIN LISPRO (humaLOG) 300 UNIT/3 ML VIAL SQ SCH ×4 (06:54→20:45)
[2016-11-23] MEDS: CARVEDILOL 3.125 MG TAB PO SCH ×2 (06:54→17:25)
[2016-11-23] MEDS: LOSARTAN 50 MG TAB PO SCH ×2 (08:39→20:37)
[2016-11-23] MEDS: METHYLPHENIDATE HCL 10 MG TAB PO SCH ×3 (08:40→17:25)
[2016-11-23] MEDS: ALPRAZolam 0.5 MG TAB PO PRN ×2 (08:40→20:38)
[2016-11-23] MEDS: GLIMEPIRIDE 2 MG TAB PO SCH (08:40)
[2016-11-23] MEDS: PANTOPRAZOLE 40 MG TABLET PO SCH ×2 (08:40→17:27)
[2016-11-23] MEDS: PREGABALIN 100 MG CAP PO SCH ×2 (08:40→20:38)
--- NOTE | 2016-11-23 08:48 | P.CRDCN ---
History of Present Illness Consult date: 11/23/16 Requesting physician: Liz De La Rosa Reason for Consult (text): Abnormal troponins Chief complaint: Mental status changes and falls History of present illness: This is a 55-year-old female with history of coronary artery disease, diabetes, hypertension, hyperlipidemia, osteoarthritis, prior CVA, nicotine dependence, anxiety and depression, who recently underwent a cardiac catheterization in September of this year by Dr. Hunt where the patient was found to have severe single vessel coronary artery disease with subtotally occluded proximal RCA fills by collateral from the left system, unchanged from prior. According to the cardiac catheterization maximal medical therapy was advised at that time. Patient states she had a follow-up appointment with Dr. Hunt in the office and subsequently an appointment had been made to have angioplasty and stenting of the right coronary artery on the of this month. An echocardiogram with Doppler study was also performed in September which revealed an ejection fraction of 55-60%. The patient presents to the hospital on this occasion with mental status changes, she states she's been incredibly stressed, mild confusion, and states that she's been falling frequently. She has had a persistent cough, denies any chest discomfort. Mild dizziness and headache. Chest x-ray on admission revealed evidence of pneumonic infiltrate in the right middle lobe new as compared with prior exam. EKG shows a normal sinus rhythm with no acute changes. Repeat EKG performed this morning shows a normal sinus rhythm with no acute changes. Hemoglobin 11.0, WBC 10, platelet count 291, blood glucose on arrival to 62, sodium 139, potassium 4.0, BUN 11, creatinine 0.9. Troponin 1.0, 0.7, 0.29. At the time of my examination this morning, patient states that she feels much more oriented. Denies any chest pain. Temperature 99.3 and 100.4. Past Medical History Past Medical History: Coronary Artery Disease (CAD), Chest Pain / Angina, COPD, Diabetes Mellitus, GERD/Reflux, Hyperlipidemia, Hypertension, Myocardial Infarction ([place]), Osteoarthritis (OA), Pulmonary Embolus (PE) Additional Past Medical History / Comment(s): Hep C, IV drug abuse>25 years ago , murmur, SOME BLOCKAGE TO RCA PER HEART CATH 2013, MILD LT SYSTOLIC DYSFUNCTIONstroke behind eye, neuropathy Last Myocardial Infarction Date:: 2010 History of Any Multi-Drug Resistant Organisms: None Reported Past Surgical History: Section, Heart Catheterization, Tubal Ligation Additional Past Surgical History / Comment(s): STRESS TEST, HERB Past Anesthesia/Blood Transfusion Reactions: No Reported Reaction Date of Last Stent Placement:: 2010 Past Psychological History: Anxiety, Depression Additional Psychological History / Comment(s): lives with fiance, pt is independant Smoking Status: Current every day smoker Past Alcohol Use History: None Reported Past Drug Use History: None Reported - Past Family History Mother Family Medical History: Myocardial Infarction ([place]) Father Family Medical History: Unable to Obtain Additional Family Medical History / Comment(s): PT STATED HER FATHER IN 1968 Medications and Allergies Home Medications Medication Instructions Recorded Confirmed Type Albuterol Inhaler [Ventolin Hfa 2 puff INHALATION RT-QID PRN 12/05/13 11/22/16 History Inhaler] Carvedilol [Coreg] 3.125 mg PO BID 12/05/13 11/22/16 History ALPRAZolam [Xanax] 0.5 mg PO DAILY PRN 10/30/14 11/22/16 History Nitroglycerin Sl Tabs [Nitrostat] 0.4 mg SUBLINGUAL Q5M PRN 10/30/14 11/22/16 History PARoxetine [Paxil] 20 mg PO DAILY 11/04/14 11/22/16 History Hydrocodone/Acetaminophen 1 tab PO TID PRN 05/27/15 11/22/16 History [Hydrocodon-Acetaminoph 7.5-325] Omeprazole 20 mg PO BID 05/27/15 11/22/16 History Aspirin 81 mg PO DAILY 08/07/15 11/22/16 History Amitriptyline HCl [Elavil] 10 mg PO HS 12/13/15 11/22/16 History metFORMIN HCL [Glucophage] 500 mg PO TID 05/25/16 11/22/16 History Losartan [Cozaar] 50 mg PO BID 09/17/16 11/22/16 History Glimepiride [Amaryl] 2 mg PO AC-BRKFST 11/22/16 11/22/16 History Ipratropium-Albuterol Nebulize 3 ml INHALATION RT-QID 11/22/16 11/22/16 History [Duoneb 0.5 mg-3 mg/3 ml Soln] Methylphenidate HCl [Ritalin] 20 mg PO TID 11/22/16 11/22/16 History Pregabalin [Lyrica] 100 mg PO BID 11/22/16 11/22/16 History Allergies Allergy/AdvReac Type Severity Reaction Status Date / Time gabapentin Allergy Swelling Verified 11/22/16 14:53 atorvastatin AdvReac Leg Cramps Verified 11/22/16 14:53 Physical Exam Vitals: Vital Signs Temp Pulse Pulse Resp BP BP Pulse Ox 11/23/16 08:00 96.6 F L 78 18 142/74 11/23/16 04:00 98.6 F 82 18 130/61 93 L 11/22/16 23:57 96.9 F L 78 18 122/61 93 L 11/22/16 20:30 92/53 11/22/16 20:00 96.4 F L 79 18 85/53 93 L 11/22/16 19:47 85 11/22/16 19:40 83 11/22/16 17:57 97.4 F L 92 20 114/79 91 L 11/22/16 17:00 90 20 115/54 93 L 11/22/16 16:43 88 18 111/51 93 L 11/22/16 16:30 84 11/22/16 16:21 83 11/22/16 16:05 86 18 102/58 99 11/22/16 15:51 87 11/22/16 15:35 88 18 105/58 95 11/22/16 15:04 100.4 F H 93 18 105/58 94 L 11/22/16 14:49 22 11/22/16 14:25 99.3 F 97 20 104/57 89 L Intake and Output 11/22/16 11/23/16 11/23/16 22:59 06:59 14:59 Intake Total 325.536 Balance 325.536 Intake: IV 160 Heparin Sodium,Porcine/ 160 D5w Pmx 25,000 unit In Dextrose/Water 1 500ml. bag @ 12 UNITS/KG/HR 19. 59 mls/hr IV .Q24H [facility] Rx #:[id number] Intake, IV Titration 165.536 Amount Heparin Sodium,Porcine/ 165.536 D5w Pmx 25,000 unit In Dextrose/Water 1 500ml. bag @ 12 UNITS/KG/HR 19. 59 mls/hr IV .Q24H [facility] Rx #:[id number] Other: # Voids 2 Weight 84.1 kg PHYSICAL EXAMINATION: HEENT: Head is atraumatic, normocephalic. Pupils equal, round. Neck is supple. There is no elevated jugular venous pressure. HEART EXAMINATION: Heart S1, S2 normal. No murmur or gallop heard. CHEST EXAMINATION: Lungs reveal scattered coarse wheezing throughout. ABDOMEN: [ Soft, nontender. Bowel sounds are heard. No organomegaly noted]. EXTREMITIES:[ 2+ peripheral pulses with no evidence of peripheral edema and no calf tenderness noted]. NEUROLOGIC [patient is awake, alert and oriented -3.] . Results 11/22/16 14:47 11/22/16 14:47 Cardiac Enzymes 11/22/16 11/22/16 11/22/16 Range/Units 14:47 14:47 20:02 AST 14 (14-36) U/L CK-MB (CK-2) 2.3 2.2 (0.0-2.4) ng/mL Troponin I 1.050 H* 0.771 H* (0.000-0.034) ng/mL 11/23/16 Range/Units 02:04 AST (14-36) U/L CK-MB (CK-2) 2.3 (0.0-2.4) ng/mL Troponin I 0.299 H* (0.000-0.034) ng/mL Coagulation 11/22/16 11/22/16 11/23/16 Range/Units 14:47 23:58 06:36 PT 10.4 (9.0-12.0) sec APTT 24.5 29.0 30.4 H (22.0-30.0) sec Lipids 11/23/16 Range/Units 02:04 Triglycerides 254 H (<150) mg/dL Cholesterol 160 (<200) mg/dL HDL Cholesterol 25 L (40-60) mg/dL CBC 11/22/16 Range/Units 14:47 WBC 10.1 (3.8-10.6) k/uL RBC 3.81 (3.80-5.40) m/uL Hgb 11.0 L (11.4-16.0) gm/dL Hct 32.6 L (34.0-46.0) % Plt Count 291 (150-450) k/uL Comprehensive Metabolic Panel 11/22/16 Range/Units 14:47 Sodium 139 (137-145) mmol/L Potassium 4.0 (3.5-5.1) mmol/L Chloride 101 (98-107) mmol/L Carbon Dioxide 30 (22-30) mmol/L BUN 11 (7-17) mg/dL Creatinine 0.97 (0.52-1.04) mg/dL Glucose 125 H (74-99) mg/dL Calcium 8.5 (8.4-10.2) mg/dL AST 14 (14-36) U/L ALT 16 (9-52) U/L Alkaline Phosphatase 62 (38-126) U/L Total Protein 6.1 L (6.3-8.2) g/dL Albumin 3.2 L (3.5-5.0) g/dL Current Medications Generic Name Dose Route Start Last Admin Trade Name Freq PRN Reason Stop Dose Admin Hydrocodone Bitart/Acetaminophen 1 each 11/22/16 19:35 11/23/16 04:53 Jenner 7.5-325 PO 1 each TID PRN Administration Pain Albuterol/Ipratropium 3 ml 11/22/16 20:00 11/22/16 19:57 Duoneb 0.5 Mg-3 Mg/3 Ml Soln INHALATION Not Given RT-QID VERNA Albuterol/Ipratropium 3 ml 11/22/16 19:46 Duoneb 0.5 Mg-3 Mg/3 Ml Soln INHALATION RT-Q2H PRN Shortness Of Breath Or Wheezing Alprazolam 0.5 mg 11/22/16 19:35 11/22/16 20:54 Xanax PO 0.5 mg DAILY PRN Administration Anxiety Amitriptyline HCl 10 mg 11/22/16 21:00 11/22/16 20:54 Elavil PO 10 mg HS VERNA Administration Aspirin 325 mg 11/23/16 09:00 Aspirin PO DAILY VERNA Carvedilol 3.125 mg 11/22/16 19:45 11/23/16 06:54 Coreg PO 3.125 mg BID-W/MEALS VERNA Administration Glimepiride 2 mg 11/23/16 07:30 Amaryl PO AC-BRKFST [facility] Heparin Sodium (Porcine) 0 unit 11/23/16 00:42 11/23/16 01:14 Heparin IV 4,000 unit PER PROTOCOL PRN Administration Low PTT Protocol Heparin Sodium/Dextrose 25,000 500 mls @ 19.59 mls/hr 11/22/16 16:15 01:16 unit/ IV Solution IV 15 units/kg/hr .Q24H VER[facility] 24.49 mls/hr Protocol Titration 12 UNITS/KG/HR Levofloxacin 750 mg/ IV 150 mls @ 100 mls/hr 11/23/16 15:00 Solution IVPB Q24H [facility] Insulin Human Lispro 0 unit 11/22/16 21:00 11/23/16 06:54 Humalog SQ 5 unit ACHS VERNA Administration Protocol Losartan Potassium 50 mg 11/22/16 21:00 11/22/16 21:41 Cozaar PO Not Given BID [facility] Methylphenidate HCl 20 mg 11/23/16 07:30 Ritalin PO AC-TID VERNA Methylprednisolone Sodium Succinate 60 mg 11/22/16 18:00 11/23/16 05:58 Solu-Medrol IV 60 mg Q6HR VERNA Administration Nitroglycerin 1 inch 11/22/16 19:00 11/23/16 05:58 Nitro-Bid Oint TOPICAL 1 inch Q6HR VERNA Administration Nitroglycerin 0.4 mg 11/22/16 16:45 Nitrostat SUBLINGUAL Q5M PRN Chest Pain Pantoprazole Sodium 40 mg 11/22/16 19:45 11/22/16 20:54 Protonix PO 40 mg AC-BID VERNA Administration Pregabalin 100 mg 11/22/16 21:00 11/22/16 20:54 Lyrica PO 100 mg BID VERNA Administration Intake and Output 11/22/16 11/23/16 11/23/16 22:59 06:59 14:59 Intake Total 325.536 Balance 325.536 Intake: IV 160 Heparin Sodium,Porcine/ 160 D5w Pmx 25,000 unit In Dextrose/Water 1 500ml. bag @ 12 UNITS/KG/HR 19. 59 mls/hr IV .Q24H [facility] Rx #:[id number] Intake, IV Titration 165.536 Amount Heparin Sodium,Porcine/ 165.536 D5w Pmx 25,000 unit In Dextrose/Water 1 500ml. bag @ 12 UNITS/KG/HR 19. 59 mls/hr IV .Q24H [facility] Rx #:[id number] Other: # Voids 2 Weight 84.1 kg 11/22/16 14:47 11/22/16 14:47 EKG Interpretations (text) EKG shows normal sinus rhythm with no acute changes. Assessment and Plan Plan: Assessment and plan #1 mental status changes with weakness and falls #2 abnormal troponins, patient denies having any chest discomfort. She has a known subtotal occlusion of the right coronary artery and is scheduled for stenting of the RCA on the of this month. #3 evidence of pneumonia on chest x-ray with associated low-grade temperature. #4 hypertension # 5 hyperlipidemia #6 diabetes #7 nicotine dependence #8 COPD #9 prior CVA #10 depression and anxiety Plan Patient did have an echocardiogram with Doppler study performed in September of this year which revealed a normal ejection fraction. We will repeat an echo on this admission. Patient has a known blockage, subtotal occlusion of the right coronary artery and is scheduled for stenting of that vessel on November 28. She has not been having any chest pain, and is currently chest pain-free patient has been initiated on IV steroids along with antibiotics. We will re-crease aspirin 81 mg daily and resume Brilinta. We will also put the patient back on her Lipitor. Further recommendations to follow. DNP note has been reviewed, I agree with a documented findings and plan of care. Patient was seen and examined.
[2016-11-23] MEDS ORDERED: ASPIRIN 325 MG TAB PO SCH (09:00)
[2016-11-23] MEDS: IPRATROPIUM-ALBUTEROL 3 ML NEB INHALATION SCH ×4 (09:00→19:47)
[2016-11-23 09:05] LABS: Hemoglobin A1C 7.1 % (4.2-6.1)
--- NOTE | 2016-11-23 11:47 | ECHOF ---
Referral Reason:abn trop MEASUREMENTS -------- HEIGHT: 160.0 cm WEIGHT: 83.9 kg BP: 142/74 IVSd: 1.5 cm (0.6 - 1.1) LVIDd: 4.0 cm (3.9 - 5.3) LVPWd: 1.7 cm (0.6 - 1.1) IVSs: 1.7 cm LVIDs: 2.2 cm LVPWs: 2.2 cm Ao Diam: 2.7 cm (2.0 - 3.7) AV Cusp: 1.7 cm (1.5 - 2.6) LA Diam: 3.2 cm (2.7 - 3.8) MV EXCURSION: 10.759 mm (> 18.000) MV EF SLOPE: 45 mm/s (70 - 150) EPSS: 0.6 cm MV E Chavo: 0.92 m/s MV DecT: 141 ms MV A Chavo: 1.18 m/s MV E/A Ratio: 0.78 AR PHT: 149 ms RAP: 5.00 mmHg RVSP: 8.15 mmHg FINDINGS -------- Sinus rhythm. This was a technically good study. There is moderate concentric left ventricular hypertrophy. Overall left ventricular systolic function is mild-moderately impaired with, an EF between 40 - 45 %. Mid to basal inferiorlateral is hypokinetic The right ventricle is normal in size and function. The left atrium is normal in size. The right atrium is normal in size. Trace amount of aortic regurgitation. Mild mitral regurgitation is present. Mild tricuspid regurgitation present. The right ventricular systolic pressure, as measured by Doppler, is 8.15mmHg. Pulmonic valve appears structurally normal. The pericardium is normal. CONCLUSIONS -------- 1. Sinus rhythm. 2. Mild mitral regurgitation is present. 3. Mild tricuspid regurgitation present. 4. The right ventricular systolic pressure, as measured by Doppler, is 8.15mmHg. 5. Pulmonic valve appears structurally normal. 6. The pericardium is normal. 7. This was a technically good study. 8. There is moderate concentric left ventricular hypertrophy. 9. Overall left ventricular systolic function is mild-moderately impaired with, an EF between 40 - 45 %. 10. Mid to basal inferiorlateral is hypokinetic 11. The right ventricle is normal in size and function. 12. The left atrium is normal in size. 13. The right atrium is normal in size. 14. Trace amount of aortic regurgitation. CLOAK ROOM ATTENDANT: Madelyn Lynn RDCS
[2016-11-23 11:54] LABS: Glucose,Whole Blood 266 mg/dL (75-99)
--- NOTE | 2016-11-23 12:16 | P.CNPUL ---
History of Present Illness Consult date: 11/23/16 Requesting physician: Liz De La Rosa Reason for consult: abnormal CXR/CT (Infiltrate of the right middle lobe) Chief complaint: Altered mental status, weakness History of present illness: This is a pleasant 55-year-old female patient follows with Dr. Oconnor as her primary care physician. She has a history of coronary artery disease, diabetes mellitus, chronic obstructive pulmonary disease with chronic and ongoing tobacco dependence, hyperlipidemia, hypertension, osteoarthritis, pulmonary embolism, hepatitis C, remote history of IV drug abuse him a anxiety/ depression. Her most recent cardiac catheterization one month ago revealed severe single-vessel coronary artery disease with the subtotally occluded proximal right coronary artery and the plan was for possible intervention this month with Dr. Alcazar. The patient had presented here yesterday after developing increasing shortness of breath, cough and congestion as well as some confusion. Her chest x-ray did reveal evidence of a right middle lobe infiltrate. She had a T-max of 100.4. Arterial blood gases revealed a PaO2 of 85, pCO2 47 and a pH of 7.38 on 28% FiO2. No leukocytosis. She has been initiated on Levaquin , IV steroids and bronchodilators. Her troponin was 0.77, 0.29. She has been initiated on a heparin drip and Brilinta. The patient is seen this morning on the selective care unit and consultation. She is awake and alert. She is quite teary-eyed stating she is feeling depressed and unsure when her last dose of Paxil was. She does have a loose nonproductive cough. She denies any worsening shortness of breath at this time. No chest pain, palpitations lightheadedness or dizziness. She's been hemodynamically stable. Afebrile. Maintaining good O2 saturations in the upper 90s on 2 L/m per nasal cannula. Review of Systems 14 point review of system was conducted. All negative other than as mentioned in the HPI. Past Medical History Past Medical History: Coronary Artery Disease (CAD), Chest Pain / Angina, COPD, Diabetes Mellitus, GERD/Reflux, Hyperlipidemia, Hypertension, Myocardial Infarction ([place]), Osteoarthritis (OA), Pulmonary Embolus ([place]) Additional Past Medical History / Comment(s): Severe single-vessel coronary artery disease with subtotally occluded proximal right coronary artery, Hep C, IV drug abuse>25 years ago, murmur, stroke behind eye, neuropathy Last Myocardial Infarction Date:: 2010 History of Any Multi-Drug Resistant Organisms: None Reported Past Surgical History: Section, Heart Catheterization, Tubal Ligation Additional Past Surgical History / Comment(s): STRESS TEST, HERB Past Anesthesia/Blood Transfusion Reactions: No Reported Reaction Date of Last Stent Placement:: 2010 Past Psychological History: Anxiety, Depression Additional Psychological History / Comment(s): lives with fiance, pt is independant Smoking Status: Current every day smoker Past Alcohol Use History: None Reported Past Drug Use History: None Reported - Past Family History Mother Family Medical History: Myocardial Infarction ([place]) Father Family Medical History: Unable to Obtain Additional Family Medical History / Comment(s): PT STATED HER FATHER IN 1968 Medications and Allergies Home Medications Medication Instructions Recorded Confirmed Type Albuterol Inhaler [Ventolin Hfa 2 puff INHALATION RT-QID PRN 12/05/13 11/22/16 History Inhaler] Carvedilol [Coreg] 3.125 mg PO BID 12/05/13 11/22/16 History ALPRAZolam [Xanax] 0.5 mg PO DAILY PRN 10/30/14 11/22/16 History Nitroglycerin Sl Tabs [Nitrostat] 0.4 mg SUBLINGUAL Q5M PRN 10/30/14 11/22/16 History PARoxetine [Paxil] 20 mg PO DAILY 11/04/14 11/22/16 History Hydrocodone/Acetaminophen 1 tab PO TID PRN 05/27/15 11/22/16 History [Hydrocodon-Acetaminoph 7.5-325] Omeprazole 20 mg PO BID 05/27/15 11/22/16 History Aspirin 81 mg PO DAILY 08/07/15 11/22/16 History Amitriptyline HCl [Elavil] 10 mg PO HS 12/13/15 11/22/16 History metFORMIN HCL [Glucophage] 500 mg PO TID 05/25/16 11/22/16 History Losartan [Cozaar] 50 mg PO BID 09/17/16 11/22/16 History Glimepiride [Amaryl] 2 mg PO AC-BRKFST 11/22/16 11/22/16 History Ipratropium-Albuterol Nebulize 3 ml INHALATION RT-QID 11/22/16 11/22/16 History [Duoneb 0.5 mg-3 mg/3 ml Soln] Methylphenidate HCl [Ritalin] 20 mg PO TID 11/22/16 11/22/16 History Pregabalin [Lyrica] 100 mg PO BID 11/22/16 11/22/16 History Allergies Allergy/AdvReac Type Severity Reaction Status Date / Time gabapentin Allergy Swelling Verified 11/22/16 14:53 atorvastatin AdvReac Leg Cramps Verified 11/22/16 14:53 Physical Exam Vitals: Vital Signs Temp Pulse Pulse Resp BP BP Pulse Ox 11/23/16 09:12 76 11/23/16 09:00 76 11/23/16 08:00 96.6 F L 78 18 142/74 11/23/16 04:00 98.6 F 82 18 130/61 93 L 11/22/16 23:57 96.9 F L 78 18 122/61 93 L 11/22/16 20:30 92/53 11/22/16 20:00 96.4 F L 79 18 85/53 93 L 11/22/16 19:47 85 11/22/16 19:40 83 11/22/16 17:57 97.4 F L 92 20 114/79 91 L 11/22/16 17:00 90 20 115/54 93 L 11/22/16 16:43 88 18 111/51 93 L 11/22/16 16:30 84 11/22/16 16:21 83 11/22/16 16:05 86 18 102/58 99 11/22/16 15:51 87 11/22/16 15:35 88 18 105/58 95 11/22/16 15:04 100.4 F H 93 18 105/58 94 L 11/22/16 14:49 22 11/22/16 14:25 99.3 F 97 20 104/57 89 L Intake and Output 11/22/16 11/23/16 11/23/16 22:59 06:59 14:59 Intake Total 325.536 183.675 Balance 325.536 183.675 Intake: IV 160 Heparin Sodium,Porcine/ 160 D5w Pmx 25,000 unit In Dextrose/Water 1 500ml. bag @ 12 UNITS/KG/HR 19. 59 mls/hr IV .Q24H [facility] Rx #:[id number] Intake, IV Titration 165.536 183.675 Amount Heparin Sodium,Porcine/ 165.536 183.675 D5w Pmx 25,000 unit In Dextrose/Water 1 500ml. bag @ 12 UNITS/KG/HR 19. 59 mls/hr IV .Q24H [facility] Rx #:[id number] Other: # Voids 2 0 Weight 84.1 kg 84.1 kg Patient Weight 11/24/16 06:59 Weight 84.1 kg GENERAL EXAM: Alert, teary-eyed, depressed. HEAD: Normocephalic. EYES: Normal reaction of pupils, equal size. NOSE: Clear with pink turbinates. THROAT: No erythema or exudates. NECK: No masses, no JVD. CHEST: No chest wall deformity. LUNGS: Equal air entry with crackles in the right midlung. Diminished. CVS: S1 and S2 normal with no audible mumurs, regular rhythm. ABDOMEN: No hepatosplenomegaly, normal bowel sounds, no guarding or rigidity. SPINE: No scoliosis or deformity SKIN: No rashes CENTRAL NERVOUS SYSTEM: No focal deficits, tone is normal in all 4 extremities. Extremities: There is no significant peripheral edema. No clubbing, no cyanosis. Peripheral pulses are intact. Results - Laboratory Findings CBC and BMP: 11/22/16 14:47 11/22/16 14:47 ABG ABG pH 7.38 (7.35-7.45) 11/22/16 15:23 ABG pCO2 47 mmHg (35-45) H 11/22/16 15:23 ABG pO2 85 mmHg (83-108) 11/22/16 15:23 ABG O2 Saturation 96.0 % (94-97) 11/22/16 15:23 PT/INR, D-dimer PT 10.4 sec (9.0-12.0) 11/22/16 14:47 INR 1.0 (<1.1) 11/22/16 14:47 Abnormal lab findings: Abnormal Labs 11/22/16 11/22/16 11/22/16 14:47 14:47 14:47 Hgb 11.0 L Hct 32.6 L RDW 15.7 H APTT ABG pCO2 ABG HCO3 ABG Total CO2 Glucose 125 H POC Glucose (mg/dL) Hemoglobin A1c Troponin I 1.050 H* Total Protein 6.1 L Albumin 3.2 L Triglycerides HDL Cholesterol 11/22/16 11/22/16 11/22/16 15:23 18:38 20:02 Hgb Hct RDW APTT ABG pCO2 47 H ABG HCO3 27 H ABG Total CO2 28 H Glucose POC Glucose (mg/dL) 189 H Hemoglobin A1c Troponin I 0.771 H* Total Protein Albumin Triglycerides HDL Cholesterol 11/22/16 11/22/16 11/23/16 20:02 20:36 02:04 Hgb Hct RDW APTT ABG pCO2 ABG HCO3 ABG Total CO2 Glucose POC Glucose (mg/dL) 262 H Hemoglobin A1c 7.1 H Troponin I 0.299 H* Total Protein Albumin Triglycerides HDL Cholesterol 11/23/16 11/23/16 11/23/16 02:04 06:07 06:36 Hgb Hct RDW APTT 30.4 H ABG pCO2 ABG HCO3 ABG Total CO2 Glucose POC Glucose (mg/dL) 298 H Hemoglobin A1c Troponin I Total Protein Albumin Triglycerides 254 H HDL Cholesterol 25 L - Diagnostic Findings Chest x-ray: image reviewed Assessment and Plan Plan: Impression: #1 Altered mental status of unclear etiology, suspect acute anxiety/depression, right mid lung pneumonia with febrile illness. #2 Right mid lung infiltrate/pneumonia with febrile illness. #3 Anxiety/depression. #4 Coronary artery disease with severe stenosis with subtotally occluded proximal right coronary artery on cardiac catheterization 09/19/2016. #5 Diabetes mellitus. #6 Hyperlipidemia. #7 Hypertension. #8 Chronic and ongoing tobacco dependence. #9 Hepatitis C. #10 Remote history of IV drug abuse. Plan: The patient was seen and evaluated by Dr. Rodríguez. Her chest x-ray and labs were reviewed. Very minimal infiltrate noted. We'll continue with her current medications including Levaquin and bronchodilators. We will back off on the IV Solu-Medrol based on her current anxiety/depression issues and she is in no acute respiratory distress. Her home medications will be resumed. Cardiology is on the case as well. We will continue to follow and make further recommendations based on her clinical status. Time with Patient: Greater than 30
[2016-11-23] MEDS: TICAGRELOR 90 MG TAB PO SCH ×2 (12:49→20:38)
[2016-11-23] MEDS: ATORVASTATIN 80 MG TAB PO SCH (12:49)
--- NOTE | 2016-11-23 13:17 | P.HPIM ---
History of Present Illness H&P Date: 11/23/16 Patient is a 55-year-old female patient of Dr. Oconnor, She has a history of coronary artery disease, diabetes mellitus, chronic obstructive pulmonary disease with chronic and ongoing tobacco dependence, hyperlipidemia, hypertension, osteoarthritis, pulmonary embolism, hepatitis C, remote history of IV drug abuse and anxiety/depression. Her most recent cardiac catheterization one month ago revealed severe single- vessel coronary artery disease with the subtotally occluded proximal right coronary artery and the plan was for possible intervention this month with Dr. Alcazar. patient presented yesterday to ER after developing increasing shortness of breath, cough and congestion as well as some confusion. Her chest x-ray did reveal evidence of a right middle lobe infiltrate. She had a T-max of 100.4. Arterial blood gases revealed a PaO2 of 85, pCO2 47 and a pH of 7.38 on 28% FiO2. No leukocytosis. She has been initiated on Levaquin, IV steroids and bronchodilators. Her troponin was 0.77, 0.29. She has been initiated on a heparin drip and Brilinta. Today patient is awake and alert. She is quite teary-eyed stating she is feeling depressed and unsure when her last dose of Paxil was. She does have a nonproductive cough. She denies any worsening shortness of breath at this time. No chest pain, palpitations lightheadedness or dizziness. She's been hemodynamically stable. Afebrile. Maintaining good O2 saturations in the upper 90s on 2 L/m per nasal cannula. Past Medical History Past Medical History: Coronary Artery Disease (CAD), Chest Pain / Angina, COPD, Diabetes Mellitus, GERD/Reflux, Hyperlipidemia, Hypertension, Myocardial Infarction (HI), Osteoarthritis (OA), Pulmonary Embolus (PE) Additional Past Medical History / Comment(s): Severe single-vessel coronary artery disease with subtotally occluded proximal right coronary artery, Hep C, IV drug abuse>25 years ago, murmur, stroke behind eye, neuropathy Last Myocardial Infarction Date:: 2010 History of Any Multi-Drug Resistant Organisms: None Reported Past Surgical History: Section, Heart Catheterization, Tubal Ligation Additional Past Surgical History / Comment(s): STRESS TEST, HERB Past Anesthesia/Blood Transfusion Reactions: No Reported Reaction Date of Last Stent Placement:: 2010 Past Psychological History: Anxiety, Depression Additional Psychological History / Comment(s): lives with fiance, pt is independant Smoking Status: Current every day smoker Past Alcohol Use History: None Reported Past Drug Use History: None Reported - Past Family History Mother Family Medical History: Myocardial Infarction (HI) Father Family Medical History: Unable to Obtain Additional Family Medical History / Comment(s): PT STATED HER FATHER IN MVA 1969 Medications and Allergies Home Medications Medication Instructions Recorded Confirmed Type Albuterol Inhaler [Ventolin Hfa 2 puff INHALATION RT-QID PRN 12/05/13 11/22/16 History Inhaler] Carvedilol [Coreg] 3.125 mg PO BID 12/05/13 11/22/16 History ALPRAZolam [Xanax] 0.5 mg PO DAILY PRN 10/30/14 11/22/16 History Nitroglycerin Sl Tabs [Nitrostat] 0.4 mg SUBLINGUAL Q5M PRN 10/30/14 11/22/16 History PARoxetine [Paxil] 20 mg PO DAILY 11/04/14 11/22/16 History Hydrocodone/Acetaminophen 1 tab PO TID PRN 05/27/15 11/22/16 History [Hydrocodon-Acetaminoph 7.5-325] Omeprazole 20 mg PO BID 05/27/15 11/22/16 History Aspirin 81 mg PO DAILY 08/07/15 11/22/16 History Amitriptyline HCl [Elavil] 10 mg PO HS 12/13/15 11/22/16 History metFORMIN HCL [Glucophage] 500 mg PO TID 05/25/16 11/22/16 History Losartan [Cozaar] 50 mg PO BID 09/17/16 11/22/16 History Glimepiride [Amaryl] 2 mg PO [id number] 11/22/16 11/22/16 History Ipratropium-Albuterol Nebulize 3 ml INHALATION RT-QID 11/22/16 11/22/16 History [Duoneb 0.5 mg-3 mg/3 ml Soln] Methylphenidate HCl [Ritalin] 20 mg PO TID 11/22/16 11/22/16 History Pregabalin [Lyrica] 100 mg PO BID 11/22/16 11/22/16 History Allergies Allergy/AdvReac Type Severity Reaction Status Date / Time gabapentin Allergy Swelling Verified 11/22/16 14:53 atorvastatin AdvReac Leg Cramps Verified 11/22/16 14:53 Physical Exam Vitals: Vital Signs Temp Pulse Pulse Resp BP BP Pulse Ox 11/23/16 09:12 76 11/23/16 09:00 76 11/23/16 08:00 96.6 F L 78 18 142/74 11/23/16 04:00 98.6 F 82 18 130/61 93 L 11/22/16 23:57 96.9 F L 78 18 122/61 93 L 11/22/16 20:30 92/53 11/22/16 20:00 96.4 F L 79 18 85/53 93 L 11/22/16 19:47 85 11/22/16 19:40 83 11/22/16 17:57 97.4 F L 92 20 114/79 91 L 11/22/16 17:00 90 20 115/54 93 L 11/22/16 16:43 88 18 111/51 93 L 11/22/16 16:30 84 11/22/16 16:21 83 11/22/16 16:05 86 18 102/58 99 11/22/16 15:51 87 11/22/16 15:35 88 18 105/58 95 11/22/16 15:04 100.4 F H 93 18 105/58 94 L 11/22/16 14:49 22 11/22/16 14:25 99.3 F 97 20 104/57 89 L Intake and Output 11/22/16 11/23/16 11/23/16 22:59 06:59 14:59 Intake Total 325.536 183.675 Balance 325.536 183.675 Intake: IV 160 Heparin Sodium,Porcine/ 160 D5w Pmx 25,000 unit In Dextrose/Water 1 500ml. bag @ 12 UNITS/KG/HR 19. 59 mls/hr IV .Q24H [facility] Rx #:[id number] Intake, IV Titration 165.536 183.675 Amount Heparin Sodium,Porcine/ 165.536 183.675 D5w Pmx 25,000 unit In Dextrose/Water 1 500ml. bag @ 12 UNITS/KG/HR 19. 59 mls/hr IV .Q24H [facility] Rx #:[id number] Other: # Voids 2 0 Weight 84.1 kg 84.1 kg Patient Weight 11/24/16 06:59 Weight 84.1 kg In general patient is alert and oriented 3 in no apparent distress HEENT head normocephalic and atraumatic Neck is supple no JVD no goiter no lymphadenopathy Chest exam reveals a few scattered crackles in both bases no wheezing Cardiac exam reveals regular heart sounds no gallops no murmurs Abdomen is soft nontender no organomegaly with normal bowel sounds Extremity exam reveals no edema no cyanosis or clubbing Results CBC & Chem 7: 11/22/16 14:47 11/22/16 14:47 Labs: Abnormal Lab Results - Last 24 Hours (Table) 11/22/16 11/22/16 11/22/16 Range/Units 14:47 14:47 14:47 Hgb 11.0 L (11.4-16.0) gm/dL Hct 32.6 L (34.0-46.0) % RDW 15.7 H (11.5-15.5) % APTT (22.0-30.0) sec ABG pCO2 (35-45) mmHg ABG HCO3 (21-25) mmol/L ABG Total CO2 (19-24) mmol/L Glucose 125 H (74-99) mg/dL POC Glucose (mg/dL) (75-99) mg/dL Hemoglobin A1c (4.2-6.1) % Troponin I 1.050 H* (0.000-0.034) ng/mL Total Protein 6.1 L (6.3-8.2) g/dL Albumin 3.2 L (3.5-5.0) g/dL Triglycerides (<150) mg/dL HDL Cholesterol (40-60) mg/dL 11/22/16 11/22/16 11/22/16 Range/Units 15:23 18:38 20:02 Hgb (11.4-16.0) gm/dL Hct (34.0-46.0) % RDW (11.5-15.5) % APTT (22.0-30.0) sec ABG pCO2 47 H (35-45) mmHg ABG HCO3 27 H (21-25) mmol/L ABG Total CO2 28 H (19-24) mmol/L Glucose (74-99) mg/dL POC Glucose (mg/dL) 189 H (75-99) mg/dL Hemoglobin A1c (4.2-6.1) % Troponin I 0.771 H* (0.000-0.034) ng/mL Total Protein (6.3-8.2) g/dL Albumin (3.5-5.0) g/dL Triglycerides (<150) mg/dL HDL Cholesterol (40-60) mg/dL 11/22/16 11/22/16 11/23/16 Range/Units 20:02 20:36 02:04 Hgb (11.4-16.0) gm/dL Hct (34.0-46.0) % RDW (11.5-15.5) % APTT (22.0-30.0) sec ABG pCO2 (35-45) mmHg ABG HCO3 (21-25) mmol/L ABG Total CO2 (19-24) mmol/L Glucose (74-99) mg/dL POC Glucose (mg/dL) 262 H (75-99) mg/dL Hemoglobin A1c 7.1 H (4.2-6.1) % Troponin I 0.299 H* (0.000-0.034) ng/mL Total Protein (6.3-8.2) g/dL Albumin (3.5-5.0) g/dL Triglycerides (<150) mg/dL HDL Cholesterol (40-60) mg/dL 11/23/16 11/23/16 11/23/16 Range/Units 02:04 06:07 06:36 Hgb (11.4-16.0) gm/dL Hct (34.0-46.0) % RDW (11.5-15.5) % APTT 30.4 H (22.0-30.0) sec ABG pCO2 (35-45) mmHg ABG HCO3 (21-25) mmol/L ABG Total CO2 (19-24) mmol/L Glucose (74-99) mg/dL POC Glucose (mg/dL) 298 H (75-99) mg/dL Hemoglobin A1c (4.2-6.1) % Troponin I (0.000-0.034) ng/mL Total Protein (6.3-8.2) g/dL Albumin (3.5-5.0) g/dL Triglycerides 254 H (<150) mg/dL HDL Cholesterol 25 L (40-60) mg/dL 11/23/16 Range/Units 11:50 Hgb (11.4-16.0) gm/dL Hct (34.0-46.0) % RDW (11.5-15.5) % APTT (22.0-30.0) sec ABG pCO2 (35-45) mmHg ABG HCO3 (21-25) mmol/L ABG Total CO2 (19-24) mmol/L Glucose (74-99) mg/dL POC Glucose (mg/dL) 266 H (75-99) mg/dL Hemoglobin A1c (4.2-6.1) % Troponin I (0.000-0.034) ng/mL Total Protein (6.3-8.2) g/dL Albumin (3.5-5.0) g/dL Triglycerides (<150) mg/dL HDL Cholesterol (40-60) mg/dL Assessment and Plan Plan: #1 Mental status changes, likely related to acute anxiety/depression, right mid lung pneumonia with febrile illness. #2 Right mid lung infiltrate/pneumonia with febrile illness. #3 Anxiety with depression. Resume Paxil continue with Xanax #4 Coronary artery disease with severe stenosis with subtotally occluded proximal right coronary artery on cardiac catheterization 09/19/2016. #5 Diabetes mellitus. on Amaryl and insulin sliding scale #6 Hyperlipidemia on Lipitor 80 mg daily #7 Hypertension. well controlled on current medications continue. #8 Chronic and ongoing tobacco dependence. #9 Hepatitis C. #10 Remote history of IV drug abuse. Plan: We'll continue with her current medications including Levaquin and bronchodilators. Her home medications will be resumed. Cardiology and pulmonary are following
[2016-11-23 14:14] LABS: Appearance,Urine Clear (Clear); Bilirubin,Urine Negative (Negative); Glucose,Urine (UA) 4+ (Negative); Ketones,Urine Negative (Negative); Leukocyte Esterase,Urine Negative (Negative); Nitrite,Urine Negative (Negative); Protein,Urine Negative (Negative); Specific Gravity,Urine 1.006 (1.001-1.035); UA Billing (MACRO vs. MICRO) CHEM; Urobilinogen,Urine <2.0 mg/dL (<2.0)
[2016-11-23] MEDS ORDERED: LEVOFLOXACIN 750MG-D5W PMX 750 MG in DEXTROSE/WATER 1 150ML.BAG IVPB SCH (15:00)
[2016-11-23] MEDS: PARoxetine 20 MG TAB PO SCH (15:25)
[2016-11-23 17:00] LABS: Glucose,Whole Blood 123 mg/dL (75-99)
[2016-11-23] MEDS: HEPARIN SODIUM,PORCINE/D5W PMX 25,000 UNIT in DEXTROSE/WATER 1 500ML.BAG IV SCH (17:20)
[2016-11-23 20:34] LABS: Glucose,Whole Blood 205 mg/dL (75-99)
[2016-11-23] MEDS: AMITRIPTYLINE HCL 10 MG TAB PO SCH (20:37)
[2016-11-23] MEDS: methylPREDNISolone SOD SUCCI 40 MG/ML 1 ML VIAL IV SCH (20:38)
[2016-11-23] MEDS: NICOTINE 21MG/24HR PATCH TRANSDERM SCH (20:38)
[2016-11-23] MEDS ORDERED: ALPRAZolam 0.5 MG TAB PO SCH (21:00)
[2016-11-23] MEDS ORDERED: HEPARIN SODIUM,PORCINE/D5W PMX 25,000 UNIT in DEXTROSE/WATER 1 500ML.BAG IV SCH (22:45)
[2016-11-23 22:51] LABS: Basophils % (A) 0 %; CH 27.3; CHCM 32.2; Eosinophils # (A) 0.1 k/uL (0-0.7); Eosinophils % (A) 0 %; HCT 31.1 % (34.0-46.0); HDW 3.29; HGB 10.3 gm/dL (11.4-16.0); Hypochromasia Slight; Luc # (Auto) 0.17; Luc % (Auto) 1; Lymphocytes # (A) 0.9 k/uL (1.0-4.8); Lymphocytes % (A) 6 %; MCH 28.2 pg (25.0-35.0); MCHC 33.1 g/dL (31.0-37.0); MCV 85.1 fL (80.0-100.0); Mean Platelet Volume 7.8; Monocytes # (A) 0.6 k/uL (0-1.0); Monocytes % (A) 4 %; Neutrophils # (A) 13.3 k/uL (1.3-7.7); Neutrophils % (A) 89 %; RBC 3.65 m/uL (3.80-5.40); RDW 15.4 % (11.5-15.5)
[2016-11-23 23:00] LABS: Partial Thromboplastin Time 22.4 sec (22.0-30.0); Prothrombin Time 10.5 sec (9.0-12.0)
[2016-11-24] MEDS: HEPARIN SODIUM,PORCINE 5,000 UNIT/ML 1 ML VIAL IV PRN ×2 (00:11→06:06)
[2016-11-24] MEDS: MORPHINE SULFATE 2 MG/ML SYRINGE IVP PRN (00:15)
[2016-11-24] MEDS: methylPREDNISolone SOD SUCCI 125 MG/2 ML VIAL IV SCH (01:08)
[2016-11-24] MEDS: HYDROcodone/APAP 7.5-325MG 1 EACH TAB PO PRN ×3 (03:21→17:12)
[2016-11-24 05:53] LABS: Basophils % (A) 0 %; CHCM 31.3; Eosinophils % (A) 0 %; HDW 3.24; HGB 10.6 gm/dL (11.4-16.0); Hypochromasia Moderate; Luc # (Auto) 0.17; Luc % (Auto) 1; Lymphocytes % (A) 8 %; MCH 28.6 pg (25.0-35.0); MCV 86.8 fL (80.0-100.0); Mean Platelet Volume 7.7; Monocytes # (A) 0.4 k/uL (0-1.0); Monocytes % (A) 3 %; Neutrophils # (A) 11.6 k/uL (1.3-7.7); Neutrophils % (A) 88 %; RBC 3.69 m/uL (3.80-5.40); RDW 15.2 % (11.5-15.5); WBC 13.2 k/uL (3.8-10.6); WBC (Perox) 14.09
[2016-11-24 06:08] LABS: ALT 30 U/L (9-52); AST 14 U/L (14-36); Alkaline Phosphatase 65 U/L (38-126); Anion Gap 8 mmol/L; Blood Urea Nitrogen 15 mg/dL (7-17); Calcium 9.1 mg/dL (8.4-10.2); Carbon Dioxide 27 mmol/L (22-30); Chloride 105 mmol/L (98-107); Glucose 222 mg/dL (74-99); Non-African American GFR(MDRD) >60 (>60 ml/min/1.73 sqM); Potassium 4.5 mmol/L (3.5-5.1); Sodium 140 mmol/L (137-145); Total Bilirubin 0.1 mg/dL (0.2-1.3); Total Protein 5.8 g/dL (6.3-8.2)
[2016-11-24 06:10] LABS: Glucose,Whole Blood 227 mg/dL (75-99)
[2016-11-24] MEDS: CARVEDILOL 3.125 MG TAB PO SCH ×2 (06:15→17:12)
[2016-11-24] MEDS: NITROGLYCERIN OINT 1 INCH/GM PACKET TOPICAL SCH ×4 (06:15→23:53)
[2016-11-24] MEDS: PANTOPRAZOLE 40 MG TABLET PO SCH ×2 (06:16→17:18)
[2016-11-24] MEDS: METHYLPHENIDATE HCL 10 MG TAB PO SCH ×3 (06:16→17:11)
[2016-11-24] MEDS: GLIMEPIRIDE 2 MG TAB PO SCH (06:16)
[2016-11-24] MEDS: INSULIN LISPRO (humaLOG) 300 UNIT/3 ML VIAL SQ SCH ×4 (06:19→20:54)
[2016-11-24] MEDS: IPRATROPIUM-ALBUTEROL 3 ML NEB INHALATION SCH ×4 (07:51→20:38)
[2016-11-24] MEDS: ASPIRIN 81 MG CHEW PO SCH (08:47)
[2016-11-24] MEDS: ATORVASTATIN 80 MG TAB PO SCH (08:47)
[2016-11-24] MEDS: methylPREDNISolone SOD SUCCI 40 MG/ML 1 ML VIAL IV SCH ×2 (08:47→20:55)
[2016-11-24] MEDS: PARoxetine 20 MG TAB PO SCH (08:47)
[2016-11-24] MEDS: TICAGRELOR 90 MG TAB PO SCH ×2 (08:48→20:55)
[2016-11-24] MEDS: LOSARTAN 50 MG TAB PO SCH ×2 (08:48→20:54)
[2016-11-24] MEDS: NICOTINE 21MG/24HR PATCH TRANSDERM SCH (08:48)
[2016-11-24] MEDS: PREGABALIN 100 MG CAP PO SCH ×2 (08:48→20:55)
--- NOTE | 2016-11-24 09:18 | P.PN ---
Subjective Patient is a 55-year-old female patient of Dr. Oconnor, She has a history of coronary artery disease, diabetes mellitus, chronic obstructive pulmonary disease with chronic and ongoing tobacco dependence, hyperlipidemia, hypertension, osteoarthritis, pulmonary embolism, hepatitis C, remote history of IV drug abuse and anxiety/depression. Her most recent cardiac catheterization one month ago revealed severe single- vessel coronary artery disease with the subtotally occluded proximal right coronary artery and the plan was for possible intervention this month with Dr. Alcazar. patient presented yesterday to ER after developing increasing shortness of breath, cough and congestion as well as some confusion. Her chest x-ray did reveal evidence of a right middle lobe infiltrate. She had a T-max of 100.4. Patient was started on Levaquin IV steroids and bronchodilators. Patient had mildly elevated troponins. It was initially placed on IV heparin and Brilinta. The IV heparin was discontinued. However, patient developed chest pains again last night. Patient reports chest pains were across the chest. She was given IV morphine and restarted on the IV heparin drip. A repeat troponin was down at 0.299 from 0.771. Patient denies any shortness of breath with the chest pain and denies any nausea. Patient reports that her cough is showing improvement. Still nonproductive. She is having regular bowel movements. Denies any difficulty urinating. Objective - Vital Signs Vital signs: Vital Signs Temp 97.2 F L 11/24/16 03:55 Pulse 92 11/24/16 08:02 Resp 18 11/24/16 03:55 BP 142/85 11/24/16 06:13 Pulse Ox 97 11/24/16 03:55 Intake & Output 11/23/16 11/24/16 11/24/16 18:59 06:59 18:59 Intake Total 301.675 140.924 180 Output Total 400 Balance 301.675 -259.076 180 Weight 84.1 kg 84.5 kg Intake: Intake, IV Titration 183.675 140.924 Amount Heparin Sodium,Porcine/ 183.675 D5w Pmx 25,000 unit In Dextrose/Water 1 500ml. bag @ 12 UNITS/KG/HR 19. 59 mls/hr IV .Q24H [facility] Rx #:[id number] Heparin Sodium,Porcine/ 140.924 D5w Pmx 25,000 unit In Dextrose/Water 1 500ml. bag @ 12 UNITS/KG/HR 20. 18 mls/hr IV .Q24H [facility] Rx #:[id number] Oral 118 180 Output: Urine 400 Other: Voiding Method Toilet # Voids 3 1 # Bowel Movements 0 0 - Exam Head normocephalic Neck supple Lungs diminished bilaterally no wheezes or crackles Heart regular rate and rhythm S1-S2, no rub or gallop Abdomen is soft nontender nondistended positive bowel sounds no hepatosplenomegaly Extremities no edema Neuro alert and orientated to 3 - Labs CBC & Chem 7: 11/24/16 05:33 11/24/16 05:33 Labs: Abnormal Lab Results - Last 24 Hours (Table) 11/22/16 11/23/16 11/23/16 Range/Units 20:02 11:50 13:50 WBC (3.8-10.6) k/uL RBC (3.80-5.40) m/uL Hgb (11.4-16.0) gm/dL Hct (34.0-46.0) % Neutrophils # (1.3-7.7) k/uL Lymphocytes # (1.0-4.8) k/uL Glucose (74-99) mg/dL POC Glucose (mg/dL) 266 H (75-99) mg/dL Hemoglobin A1c 7.1 H (4.2-6.1) % Total Bilirubin (0.2-1.3) mg/dL Total Protein (6.3-8.2) g/dL Albumin (3.5-5.0) g/dL Urine Glucose (UA) 4+ H (Negative) 11/23/16 11/23/16 11/23/16 Range/Units 16:57 20:33 22:37 WBC 15.0 H (3.8-10.6) k/uL RBC 3.65 L (3.80-5.40) m/uL Hgb 10.3 L (11.4-16.0) gm/dL Hct 31.1 L (34.0-46.0) % Neutrophils # 13.3 H (1.3-7.7) k/uL Lymphocytes # 0.9 L (1.0-4.8) k/uL Glucose (74-99) mg/dL POC Glucose (mg/dL) 123 H 205 H (75-99) mg/dL Hemoglobin A1c (4.2-6.1) % Total Bilirubin (0.2-1.3) mg/dL Total Protein (6.3-8.2) g/dL Albumin (3.5-5.0) g/dL Urine Glucose (UA) (Negative) 11/24/16 11/24/16 11/24/16 Range/Units 05:33 05:33 06:08 WBC 13.2 H (3.8-10.6) k/uL RBC 3.69 L (3.80-5.40) m/uL Hgb 10.6 L (11.4-16.0) gm/dL Hct 32.0 L (34.0-46.0) % Neutrophils # 11.6 H (1.3-7.7) k/uL Lymphocytes # (1.0-4.8) k/uL Glucose 222 H (74-99) mg/dL POC Glucose (mg/dL) 227 H (75-99) mg/dL Hemoglobin A1c (4.2-6.1) % Total Bilirubin 0.1 L (0.2-1.3) mg/dL Total Protein 5.8 L (6.3-8.2) g/dL Albumin 3.2 L (3.5-5.0) g/dL Urine Glucose (UA) (Negative) Microbiology - Last 24 Hours (Table) 11/23/16 13:50 Urine Culture - Preliminary Urine,Voided 11/22/16 14:47 Blood Culture - Preliminary Blood No Growth after 24 hours Assessment and Plan Plan: #1 acute Mental status changes, likely secondary to a metabolic encephalopathy from acute anxiety and depression, right mid lung pneumonia with febrile illness. #2 pneumonia of the Right mid lung with febrile illness. Continue Levaquin. Cough improving. Pulmonary service following. White count improving #3 Anxiety with depression. Resume Paxil continue with Xanax #4 Coronary artery disease with severe stenosis with subtotally occluded proximal right coronary artery on cardiac catheterization 09/19/2016. Patient is scheduled to have stents placed on November [address] Alcazar. Patient had chest pain again last night. IV heparin drip restarted. Patient will evaluated by cardiology. Repeat troponin 0.299. Continue aspirin and Brilinta. Echo shows an EF of 40-45% #5 Diabetes mellitus. on Amaryl and insulin sliding scale #6 Hyperlipidemia on Lipitor 80 mg daily #7 Hypertension. well controlled on current medications continue. #8 Chronic and ongoing tobacco dependence. Continue nicotine patch. Discussed smoking cessation for greater than 3 minutes #9 Hepatitis C. #10 Remote history of IV drug abuse. DVT prophylaxis IV heparin I performed an examination of the patient and discussed their management with the physician Rivet Thrower. I have reviewed the Physician Rivet Thrower's notes and agree with the documented findings and plan of care
--- NOTE | 2016-11-24 10:12 | P.PN ---
Subjective This is a pleasant 55-year-old female patient follows with Dr. Oconnor as her primary care physician. She has a history of coronary artery disease, diabetes mellitus, chronic obstructive pulmonary disease with chronic and ongoing tobacco dependence, hyperlipidemia, hypertension, osteoarthritis, pulmonary embolism, hepatitis C, remote history of IV drug abuse him a anxiety/ depression. Her most recent cardiac catheterization one month ago revealed severe single-vessel coronary artery disease with the subtotally occluded proximal right coronary artery and the plan was for possible intervention this month with Dr. Alcazar. The patient had presented here yesterday after developing increasing shortness of breath, cough and congestion as well as some confusion. Her chest x-ray did reveal evidence of a right middle lobe infiltrate. She had a T-max of 100.4. Arterial blood gases revealed a PaO2 of 85, pCO2 47 and a pH of 7.38 on 28% FiO2. No leukocytosis. She has been initiated on Levaquin , IV steroids and bronchodilators. Her troponin was 0.77, 0.29. She has been initiated on a heparin drip and Brilinta. The patient is seen this morning on the selective care unit and consultation. She is awake and alert. She is quite teary-eyed stating she is feeling depressed and unsure when her last dose of Paxil was. She does have a loose nonproductive cough. She denies any worsening shortness of breath at this time. No chest pain, palpitations lightheadedness or dizziness. She's been hemodynamically stable. Afebrile. Maintaining good O2 saturations in the upper 90s on 2 L/m per nasal cannula. The patient is seen again today 11/24/2016 in follow-up on the selective care unit. She is awake and alert in no acute distress. She is less teary-eyed and anxious today as compared to yesterday. She denies any shortness of breath, cough or congestion. No fever, chills or night sweats. She denies any chest pain, palpitations lightheadedness or dizziness. The plan is for cardiac catheterization and possible intervention of the proximal right coronary artery to be performed by Dr. Alcazar in the a.m. And her white count has improved, hemoglobin stable, creatinine normal. She remains afebrile. Hemodynamically stable. Maintaining good O2 saturations in the upper 90s on room air. Objective - Vital Signs Vital signs: Vital Signs Temp 98.2 F 11/24/16 08:00 Pulse 92 11/24/16 08:02 Resp 18 11/24/16 08:00 BP 112/65 11/24/16 08:00 Pulse Ox 96 11/24/16 08:00 Intake & Output 11/23/16 11/24/16 11/24/16 18:59 06:59 18:59 Intake Total 301.675 140.924 180 Output Total 400 Balance 301.675 -259.076 180 Weight 84.1 kg 84.5 kg Intake: Intake, IV Titration 183.675 140.924 Amount Heparin Sodium,Porcine/ 183.675 D5w Pmx 25,000 unit In Dextrose/Water 1 500ml. bag @ 12 UNITS/KG/HR 19. 59 mls/hr IV .Q24H [facility] Rx #:[id number] Heparin Sodium,Porcine/ 140.924 D5w Pmx 25,000 unit In Dextrose/Water 1 500ml. bag @ 12 UNITS/KG/HR 20. 18 mls/hr IV .Q24H [facility] Rx #:[id number] Oral 118 180 Output: Urine 400 Other: Voiding Method Toilet Toilet # Voids 3 1 # Bowel Movements 0 0 - Exam GENERAL EXAM: Alert, active, comfortable in no apparent distress. HEAD: Normocephalic. EYES: Normal reaction of pupils, equal size. NOSE: Clear with pink turbinates. THROAT: No erythema or exudates. NECK: No masses, no JVD. CHEST: No chest wall deformity. LUNGS: Equal air entry with no crackles, wheeze, rhonchi or dullness. CVS: S1 and S2 normal with no audible murmurs, regular rhythm. ABDOMEN: No hepatosplenomegaly, normal bowel sounds, no guarding or rigidity. SPINE: No scoliosis or deformity SKIN: No rashes CENTRAL NERVOUS SYSTEM: No focal deficits, tone is normal in all 4 extremities. Extremities: There is no significant peripheral edema. No clubbing, no cyanosis. Peripheral pulses are intact. - Labs CBC & Chem 7: 11/24/16 05:33 11/24/16 05:33 Labs: Abnormal Lab Results - Last 24 Hours (Table) 11/23/16 11/23/16 11/23/16 Range/Units 11:50 13:50 16:57 WBC (3.8-10.6) k/uL RBC (3.80-5.40) m/uL Hgb (11.4-16.0) gm/dL Hct (34.0-46.0) % Neutrophils # (1.3-7.7) k/uL Lymphocytes # (1.0-4.8) k/uL Glucose (74-99) mg/dL POC Glucose (mg/dL) 266 H 123 H (75-99) mg/dL Total Bilirubin (0.2-1.3) mg/dL Total Protein (6.3-8.2) g/dL Albumin (3.5-5.0) g/dL Urine Glucose (UA) 4+ H (Negative) 11/23/16 11/23/16 11/24/16 Range/Units 20:33 22:37 05:33 WBC 15.0 H 13.2 H (3.8-10.6) k/uL RBC 3.65 L 3.69 L (3.80-5.40) m/uL Hgb 10.3 L 10.6 L (11.4-16.0) gm/dL Hct 31.1 L 32.0 L (34.0-46.0) % Neutrophils # 13.3 H 11.6 H (1.3-7.7) k/uL Lymphocytes # 0.9 L (1.0-4.8) k/uL Glucose (74-99) mg/dL POC Glucose (mg/dL) 205 H (75-99) mg/dL Total Bilirubin (0.2-1.3) mg/dL Total Protein (6.3-8.2) g/dL Albumin (3.5-5.0) g/dL Urine Glucose (UA) (Negative) 11/24/16 11/24/16 Range/Units 05:33 06:08 WBC (3.8-10.6) k/uL RBC (3.80-5.40) m/uL Hgb (11.4-16.0) gm/dL Hct (34.0-46.0) % Neutrophils # (1.3-7.7) k/uL Lymphocytes # (1.0-4.8) k/uL Glucose 222 H (74-99) mg/dL POC Glucose (mg/dL) 227 H (75-99) mg/dL Total Bilirubin 0.1 L (0.2-1.3) mg/dL Total Protein 5.8 L (6.3-8.2) g/dL Albumin 3.2 L (3.5-5.0) g/dL Urine Glucose (UA) (Negative) Microbiology - Last 24 Hours (Table) 11/23/16 13:50 Urine Culture - Preliminary Urine,Voided 11/22/16 14:47 Blood Culture - Preliminary Blood No Growth after 24 hours Assessment and Plan Plan: Impression: #1 Altered mental status of unclear etiology, suspect acute anxiety/depression, right mid lung pneumonia with febrile illness. Recovered. #2 Right mid lung infiltrate/pneumonia with febrile illness. Recovered. #3 Anxiety/depression. #4 Coronary artery disease with severe stenosis with subtotally occluded proximal right coronary artery on cardiac catheterization 09/19/2016. #5 Diabetes mellitus. #6 Hyperlipidemia. #7 Hypertension. #8 Chronic and ongoing tobacco dependence. #9 Hepatitis C. #10 Remote history of IV drug abuse. Plan: The patient was seen and evaluated by Dr. Rodríguez. We'll continue with her current medications including Levaquin and bronchodilators. We will repeat a chest x-ray in the a.m. The plan is for cardiac catheterization in the a.m. as well. Upon discharge the patient would benefit from a follow-up in our office to repeat a chest x-ray and perform full pulmonary function testing to evaluate the severity of her suspected COPD and make recommendations for maintenance medications. In the interim, we will continue to follow and make further recommendations based on her clinical status.
[2016-11-24] MEDS ORDERED: SODIUM CHLORIDE 0.9% 1,000 ML in EMPTY BAG 1 BAG IV ONE (10:23)
[2016-11-24] MEDS ORDERED: ASPIRIN 325 MG TAB PO STA (10:23)
[2016-11-24] MEDS ORDERED: ALPRAZolam 0.5 MG TAB PO PRN (10:23)
[2016-11-24] MEDS ORDERED: ATORVASTATIN 80 MG TAB PO STA (10:23)
[2016-11-24] MEDS ORDERED: NITROGLYCERIN SL TABS 0.4 MG TAB SUBLINGUAL PRN (10:23)
[2016-11-24] MEDS ORDERED: ALPRAZolam 0.25 MG TAB PO PRN (10:23)
[2016-11-24 11:52] LABS: Glucose,Whole Blood 224 mg/dL (75-99)
[2016-11-24 16:44] LABS: Glucose,Whole Blood 237 mg/dL (75-99)
[2016-11-24] MEDS: LEVOFLOXACIN 750 MG TAB PO SCH (17:17)
[2016-11-24 20:46] LABS: Glucose,Whole Blood 186 mg/dL (75-99)
[2016-11-24] MEDS: AMITRIPTYLINE HCL 10 MG TAB PO SCH (20:53)
[2016-11-24] MEDS: ALPRAZolam 0.5 MG TAB PO PRN (20:55)
--- NOTE | 2016-11-24 22:02 | PN ---
This patient was primarily admitted with symptoms suggestive of acute tracheobronchitis and possible questionable pneumonia. The patient had some atypical chest pain yesterday. Patient had borderline elevation in troponin. Blood pressure is 126/72 mmHg. Heart rate is 80 per minute. First and second heart sounds are normal. Lungs are clear to auscultation and percussion. Patient will be scheduled for a stent to the RCA tomorrow. SAMANTHAD
[2016-11-25] MEDS: INSULIN LISPRO (humaLOG) 300 UNIT/3 ML VIAL SQ SCH ×4 (05:47→21:19)
[2016-11-25] MEDS: GLIMEPIRIDE 2 MG TAB PO SCH (05:47)
[2016-11-25 05:48] LABS: Glucose,Whole Blood 274 mg/dL (75-99)
[2016-11-25] MEDS: NITROGLYCERIN OINT 1 INCH/GM PACKET TOPICAL SCH ×4 (06:07→23:27)
[2016-11-25] MEDS: PANTOPRAZOLE 40 MG TABLET PO SCH ×2 (06:08→17:28)
[2016-11-25] MEDS: CARVEDILOL 3.125 MG TAB PO SCH ×2 (06:08→17:28)
[2016-11-25] MEDS: METHYLPHENIDATE HCL 10 MG TAB PO SCH ×3 (06:08→17:34)
[2016-11-25] MEDS: LOSARTAN 50 MG TAB PO SCH ×2 (06:09→21:19)
[2016-11-25] MEDS: ATORVASTATIN 80 MG TAB PO SCH (06:09)
[2016-11-25] MEDS: NICOTINE 21MG/24HR PATCH TRANSDERM SCH (06:09)
[2016-11-25] MEDS: methylPREDNISolone SOD SUCCI 40 MG/ML 1 ML VIAL IV SCH ×2 (06:09→21:19)
[2016-11-25] MEDS: ASPIRIN 81 MG CHEW PO SCH (06:09)
[2016-11-25] MEDS: PARoxetine 20 MG TAB PO SCH (06:10)
[2016-11-25] MEDS: PREGABALIN 100 MG CAP PO SCH ×2 (06:10→21:19)
[2016-11-25] MEDS: TICAGRELOR 90 MG TAB PO SCH ×2 (06:10→21:19)
[2016-11-25] MEDS: IPRATROPIUM-ALBUTEROL 3 ML NEB INHALATION SCH ×4 (08:48→19:49)
[2016-11-25] MEDS ORDERED: IV FLUID CONTINUATION 1,000 ML IV ONE (09:44)
[2016-11-25] MEDS ORDERED: BIVALIRUDIN BOLUS 250 MG/50 ML IV ONE (10:03)
[2016-11-25] MEDS ORDERED: BIVALIRUDIN 250 MG in SODIUM CHLORIDE 0.9% 50 ML IV ONE (10:03)
[2016-11-25] MEDS ORDERED: HYDROmorphone 2 MG/ML 1 ML SYRINGE SQ ONE (10:03)
[2016-11-25] MEDS ORDERED: MIDAZOLAM 2 MG/2 ML VIAL IVP ONE (10:03)
[2016-11-25] MEDS: NITROGLYCERIN 1000MCG/10ML SYRINGE INTRACORON ONE ×3 (10:04→10:15)
[2016-11-25] MEDS ORDERED: ZOLPIDEM 5 MG TAB PO PRN (10:19)
[2016-11-25] MEDS ORDERED: NITROGLYCERIN SL TABS 0.4 MG TAB SUBLINGUAL PRN (10:19)
[2016-11-25] MEDS ORDERED: ATROPINE SULFATE 0.1 MG/ML 10ML SYRINGE IV PRN (10:19)
[2016-11-25] MEDS ORDERED: RX INFO: IV CONTRAST WAS GIVEN 1 EACH MISC MISCELLANE PRN (10:19)
[2016-11-25] MEDS ORDERED: MAG HYDROX/AL HYDROX/SIMETH 30 ML CUP PO PRN (10:19)
[2016-11-25] MEDS ORDERED: IOHEXOL 350 MG/ML 100 ML BOTTLE INJ ONE (10:24)
[2016-11-25] MEDS ORDERED: SODIUM CHLORIDE 0.9% 1,000 ML IV SCH (10:30)
[2016-11-25] MEDS: MORPHINE SULFATE 2 MG/ML SYRINGE IVP PRN ×3 (11:11→21:18)
--- NOTE | 2016-11-25 11:30 | P.PN ---
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 She appears uncomfortable. She said that she was very uncomfortable during the procedure. No issues or complications. Objective - Vital Signs Vital signs: Vital Signs Temp 97.6 F 11/25/16 08:00 Pulse 62 11/25/16 11:00 Resp 18 11/25/16 10:45 BP 157/95 11/25/16 11:00 Pulse Ox 95 11/25/16 10:45 Intake & Output 11/24/16 11/25/16 11/25/16 18:59 06:59 18:59 Intake Total 477.215 420 129 Output Total 690 200 Balance -212.785 220 129 Weight 85.2 kg Intake: IV 129 Intake, IV Titration 197.215 Amount Heparin Sodium,Porcine/ 197.215 D5w Pmx 25,000 unit In Dextrose/Water 1 500ml. bag @ 12 UNITS/KG/HR 20. 18 mls/hr IV .Q24H VERNA Rx #:[id number] Oral 280 420 Output: Urine 690 200 Other: Voiding Method Toilet Toilet # Voids 2 - Exam General: The patient is awake and alert, in no distress Eye: there is normal conjunctiva bilaterally. Neck: The neck is supple, there is no JVD. Cardiovascular: Normal S1-S2, no S3-S4, no murmurs. Respiratory: Lungs clear to auscultation bilaterally Gastrointestinal: Abdomen is soft, nontender Musculoskeletal: There is no pedal edema. Neurological:. Speech is normal. Skin: Skin is warm and dry - Labs CBC & Chem 7: 11/24/16 05:33 11/24/16 05:33 Labs: Abnormal Lab Results - Last 24 Hours (Table) 11/24/16 11/24/16 11/24/16 Range/Units 11:28 16:40 20:45 POC Glucose (mg/dL) 224 H 237 H 186 H (75-99) mg/dL 11/25/16 Range/Units 05:46 POC Glucose (mg/dL) 274 H (75-99) mg/dL Microbiology - Last 24 Hours (Table) 11/23/16 13:50 Urine Culture - Final Urine,Voided 11/22/16 14:47 Blood Culture - Preliminary Blood No Growth after 48 hours Assessment and Plan Plan: #1 Coronary artery disease with severe stenosis with subtotally occluded proximal right coronary artery on cardiac catheterization 09/19/2016. Status post left heart catheterization awaiting report. Continue aspirin and Brilinta. Echo shows an EF of 40-45% #2 pneumonia of the Right mid lung with febrile illness. Continue Levaquin. Cough improving. Pulmonary service following. White count improving #3 Anxiety with depression. Resume Paxil continue with Xanax #5 Diabetes mellitus. on Amaryl and insulin sliding scale #6 Hyperlipidemia on Lipitor 80 mg daily #7 Hypertension. well controlled on current medications continue. #8 Chronic and ongoing tobacco dependence. Continue nicotine patch. Discussed smoking cessation for greater than 3 minutes #9 Hepatitis C. #10 Remote history of IV drug abuse. Continue current regimen otherwise. Repeat lab work in the morning. Continue supportive care.
[2016-11-25 11:37] LABS: Glucose,Whole Blood 148 mg/dL (75-99)
--- NOTE | 2016-11-25 11:48 | P.PN ---
Subjective This is a pleasant 55-year-old female patient follows with Dr. Oconnor as her primary care physician. She has a history of coronary artery disease, diabetes mellitus, chronic obstructive pulmonary disease with chronic and ongoing tobacco dependence, hyperlipidemia, hypertension, osteoarthritis, pulmonary embolism, hepatitis C, remote history of IV drug abuse him a anxiety/ depression. Her most recent cardiac catheterization one month ago revealed severe single-vessel coronary artery disease with the subtotally occluded proximal right coronary artery and the plan was for possible intervention this month with Dr. Alcazar. The patient had presented here yesterday after developing increasing shortness of breath, cough and congestion as well as some confusion. Her chest x-ray did reveal evidence of a right middle lobe infiltrate. She had a T-max of 100.4. Arterial blood gases revealed a PaO2 of 85, pCO2 47 and a pH of 7.38 on 28% FiO2. No leukocytosis. She has been initiated on Levaquin , IV steroids and bronchodilators. Her troponin was 0.77, 0.29. She has been initiated on a heparin drip and Brilinta. The patient is seen this morning on the selective care unit and consultation. She is awake and alert. She is quite teary-eyed stating she is feeling depressed and unsure when her last dose of Paxil was. She does have a loose nonproductive cough. She denies any worsening shortness of breath at this time. No chest pain, palpitations lightheadedness or dizziness. She's been hemodynamically stable. Afebrile. Maintaining good O2 saturations in the upper 90s on 2 L/m per nasal cannula. The patient is seen again today 11/24/2016 in follow-up on the selective care unit. She is awake and alert in no acute distress. She is less teary-eyed and anxious today as compared to yesterday. She denies any shortness of breath, cough or congestion. No fever, chills or night sweats. She denies any chest pain, palpitations lightheadedness or dizziness. The plan is for cardiac catheterization and possible intervention of the proximal right coronary artery to be performed by Dr. Alcazar in the a.m. And her white count has improved, hemoglobin stable, creatinine normal. She remains afebrile. Hemodynamically stable. Maintaining good O2 saturations in the upper 90s on room air. The patient is seen again today 11/25/2016 in follow-up on the selective care unit. She is doing well currently. She denies any chest pain, dizziness or lightheadedness. She is somewhat anxious and the plan is for stent placement today with Dr. Alcazar. She has no pulmonary complaints. She continues to maintain good O2 saturations in the mid 90s on room air. She's been afebrile. Objective - Vital Signs Vital signs: Vital Signs Temp 97.6 F 11/25/16 08:00 Pulse 72 11/25/16 11:15 Resp 18 11/25/16 11:15 BP 144/98 11/25/16 11:15 Pulse Ox 96 11/25/16 11:15 Intake & Output 11/24/16 11/25/16 11/25/16 18:59 06:59 18:59 Intake Total 477.215 420 129 Output Total 690 200 Balance -212.785 220 129 Weight 85.2 kg Intake: IV 129 Intake, IV Titration 197.215 Amount Heparin Sodium,Porcine/ 197.215 D5w Pmx 25,000 unit In Dextrose/Water 1 500ml. bag @ 12 UNITS/KG/HR 20. 18 mls/hr IV .Q24H VERNA Rx #:[id number] Oral 280 420 Output: Urine 690 200 Other: Voiding Method Toilet Toilet # Voids 2 - Exam GENERAL EXAM: Alert, active, comfortable in no apparent distress. HEAD: Normocephalic. EYES: Normal reaction of pupils, equal size. NOSE: Clear with pink turbinates. THROAT: No erythema or exudates. NECK: No masses, no JVD. CHEST: No chest wall deformity. LUNGS: Equal air entry with no crackles, wheeze, rhonchi or dullness. CVS: S1 and S2 normal with no audible murmurs, regular rhythm. ABDOMEN: No hepatosplenomegaly, normal bowel sounds, no guarding or rigidity. SPINE: No scoliosis or deformity SKIN: No rashes CENTRAL NERVOUS SYSTEM: No focal deficits, tone is normal in all 4 extremities. Extremities: There is no significant peripheral edema. No clubbing, no cyanosis. Peripheral pulses are intact. - Labs CBC & Chem 7: 11/24/16 05:33 11/24/16 05:33 Labs: Abnormal Lab Results - Last 24 Hours (Table) 11/24/16 11/24/16 11/24/16 Range/Units 11:28 16:40 20:45 POC Glucose (mg/dL) 224 H 237 H 186 H (75-99) mg/dL 11/25/16 11/25/16 Range/Units 05:46 11:33 POC Glucose (mg/dL) 274 H 148 H (75-99) mg/dL Microbiology - Last 24 Hours (Table) 11/23/16 13:50 Urine Culture - Final Urine,Voided 11/22/16 14:47 Blood Culture - Preliminary Blood No Growth after 48 hours Assessment and Plan Plan: Impression: #1 Altered mental status of unclear etiology, suspect acute anxiety/depression, right mid lung pneumonia with febrile illness. Recovered. #2 Right mid lung infiltrate/pneumonia with febrile illness. Recovered. #3 Anxiety/depression. #4 Coronary artery disease with severe stenosis with subtotally occluded proximal right coronary artery on cardiac catheterization 09/19/2016. The plan is for stent placement today. #5 Diabetes mellitus. #6 Hyperlipidemia. #7 Hypertension. #8 Chronic and ongoing tobacco dependence. #9 Hepatitis C. #10 Remote history of IV drug abuse. Plan: The patient was seen and evaluated by Dr. Rodríguez. We'll continue with her current medications including Levaquin and bronchodilators. The plan is for cardiac catheterization today. Upon discharge the patient would benefit from a follow-up in our office to repeat a chest x-ray and perform full pulmonary function testing to evaluate the severity of her suspected COPD and make recommendations for maintenance medications. In the interim, we will continue to follow and make further recommendations based on her clinical status.
[2016-11-25] MEDS: ALPRAZolam 0.5 MG TAB PO PRN ×2 (15:21→21:17)
[2016-11-25] MEDS: LEVOFLOXACIN 750 MG TAB PO SCH (15:21)
[2016-11-25 16:55] LABS: Glucose,Whole Blood 252 mg/dL (75-99)
[2016-11-25 20:52] LABS: Glucose,Whole Blood 321 mg/dL (75-99)
[2016-11-25] MEDS: AMITRIPTYLINE HCL 10 MG TAB PO SCH (21:19)
[2016-11-26] MEDS: MORPHINE SULFATE 2 MG/ML SYRINGE IVP PRN ×3 (00:10→09:39)
[2016-11-26 06:19] LABS: Glucose,Whole Blood 225 mg/dL (75-99)
[2016-11-26] MEDS: NITROGLYCERIN OINT 1 INCH/GM PACKET TOPICAL SCH (06:34)
[2016-11-26] MEDS: NICOTINE 21MG/24HR PATCH TRANSDERM SCH (06:37)
[2016-11-26] MEDS: METHYLPHENIDATE HCL 10 MG TAB PO SCH ×2 (06:37→12:06)
[2016-11-26] MEDS: GLIMEPIRIDE 2 MG TAB PO SCH (06:37)
[2016-11-26] MEDS: PANTOPRAZOLE 40 MG TABLET PO SCH (06:38)
[2016-11-26] MEDS: CARVEDILOL 3.125 MG TAB PO SCH (06:38)
[2016-11-26] MEDS: INSULIN LISPRO (humaLOG) 300 UNIT/3 ML VIAL SQ SCH ×2 (06:38→12:06)
[2016-11-26 06:46] LABS: Basophils % (A) 0 %; CH 26.7; Eosinophils # (A) 0.1 k/uL (0-0.7); Eosinophils % (A) 1 %; HCT 34.8 % (34.0-46.0); HDW 3.24; Hypochromasia Moderate; Luc % (Auto) 1; Lymphocytes # (A) 1.3 k/uL (1.0-4.8); Lymphocytes % (A) 12 %; MCH 27.4 pg (25.0-35.0); MCHC 31.8 g/dL (31.0-37.0); MCV 86.4 fL (80.0-100.0); Mean Platelet Volume 7.6; Monocytes # (A) 0.3 k/uL (0-1.0); Monocytes % (A) 3 %; Neutrophils % (A) 83 %; RBC 4.03 m/uL (3.80-5.40); RDW 15.2 % (11.5-15.5); WBC 10.8 k/uL (3.8-10.6); WBC (Perox) 11.18
[2016-11-26 06:58] LABS: Anion Gap 8 mmol/L; Blood Urea Nitrogen 17 mg/dL (7-17); Carbon Dioxide 29 mmol/L (22-30); Chloride 105 mmol/L (98-107); Glucose 234 mg/dL (74-99); Non-African American GFR(MDRD) >60 (>60 ml/min/1.73 sqM); Potassium 4.7 mmol/L (3.5-5.1); Sodium 142 mmol/L (137-145)
[2016-11-26] MEDS: IPRATROPIUM-ALBUTEROL 3 ML NEB INHALATION SCH ×2 (08:18→11:06)
[2016-11-26] MEDS: ALPRAZolam 0.5 MG TAB PO PRN (09:39)
[2016-11-26] MEDS: PREGABALIN 100 MG CAP PO SCH (09:39)
[2016-11-26] MEDS: ASPIRIN 81 MG CHEW PO SCH (09:41)
[2016-11-26] MEDS: methylPREDNISolone SOD SUCCI 40 MG/ML 1 ML VIAL IV SCH (09:41)
[2016-11-26] MEDS: LOSARTAN 50 MG TAB PO SCH (09:41)
[2016-11-26] MEDS: TICAGRELOR 90 MG TAB PO SCH (09:42)
[2016-11-26] MEDS: PARoxetine 20 MG TAB PO SCH (09:42)
[2016-11-26] MEDS: ATORVASTATIN 80 MG TAB PO SCH (09:42)
[2016-11-26 10:15] VITALS: TEMP 97.9
--- NOTE | 2016-11-26 11:18 | P.PN ---
Subjective Principal diagnosis: Acute right middle lobe pneumonia and unstable angina. This is a pleasant 55-year-old female patient follows with Dr. Oconnor as her primary care physician. She has a history of coronary artery disease, diabetes mellitus, chronic obstructive pulmonary disease with chronic and ongoing tobacco dependence, hyperlipidemia, hypertension, osteoarthritis, pulmonary embolism, hepatitis C, remote history of IV drug abuse him a anxiety/ depression. Her most recent cardiac catheterization one month ago revealed severe single-vessel coronary artery disease with the subtotally occluded proximal right coronary artery and the plan was for possible intervention this month with Dr. Alcazar. The patient had presented here yesterday after developing increasing shortness of breath, cough and congestion as well as some confusion. Her chest x-ray did reveal evidence of a right middle lobe infiltrate. She had a T-max of 100.4. Arterial blood gases revealed a PaO2 of 85, pCO2 47 and a pH of 7.38 on 28% FiO2. No leukocytosis. She has been initiated on Levaquin , IV steroids and bronchodilators. Her troponin was 0.77, 0.29. She has been initiated on a heparin drip and Brilinta. The patient is seen this morning on the selective care unit and consultation. She is awake and alert. She is quite teary-eyed stating she is feeling depressed and unsure when her last dose of Paxil was. She does have a loose nonproductive cough. She denies any worsening shortness of breath at this time. No chest pain, palpitations lightheadedness or dizziness. She's been hemodynamically stable. Afebrile. Maintaining good O2 saturations in the upper 90s on 2 L/m per nasal cannula. The patient is seen again today 11/24/2016 in follow-up on the selective care unit. She is awake and alert in no acute distress. She is less teary-eyed and anxious today as compared to yesterday. She denies any shortness of breath, cough or congestion. No fever, chills or night sweats. She denies any chest pain, palpitations lightheadedness or dizziness. The plan is for cardiac catheterization and possible intervention of the proximal right coronary artery to be performed by Dr. Alcazar in the a.m. And her white count has improved, hemoglobin stable, creatinine normal. She remains afebrile. Hemodynamically stable. Maintaining good O2 saturations in the upper 90s on room air. The patient is seen again today 11/25/2016 in follow-up on the selective care unit. She is doing well currently. She denies any chest pain, dizziness or lightheadedness. She is somewhat anxious and the plan is for stent placement today with Dr. Alcazar. She has no pulmonary complaints. She continues to maintain good O2 saturations in the mid 90s on room air. She's been afebrile. Reevaluated today on 11/26/2016, patient is doing quite well, had her stenting done yesterday, but no official report noted on the chart from cardiology so far. Clinically the patient is pain-free, no cough no wheezing no shortness of breath. She feels fine. Objective - Vital Signs Vital signs: Vital Signs Temp 97.9 F 11/26/16 08:00 Pulse 78 11/26/16 08:00 Resp 14 11/26/16 08:00 BP 161/78 11/26/16 08:00 Pulse Ox 94 L 11/26/16 08:00 Intake & Output 11/25/16 11/26/16 11/26/16 18:59 06:59 18:59 Intake Total 651 990 200 Output Total 400 620 Balance 251 370 200 Weight 85.7 kg Intake: IV 129 Intake, IV Titration 30 Amount Sodium Chloride 0.9% 1, 30 000 ml @ 100 mls/hr IV . Q10H VERNA Rx#:[id number] Oral 522 960 200 Output: Urine 400 620 Other: Voiding Method Toilet Toilet # Voids 2 - Exam GENERAL EXAM: Alert, active, comfortable in no apparent distress. HEAD: Normocephalic. EYES: Normal reaction of pupils, equal size. NOSE: Clear with pink turbinates. THROAT: No erythema or exudates. NECK: No masses, no JVD. CHEST: No chest wall deformity. LUNGS: Equal air entry with no crackles, wheeze, rhonchi or dullness. CVS: S1 and S2 normal with no audible murmurs, regular rhythm. ABDOMEN: No hepatosplenomegaly, normal bowel sounds, no guarding or rigidity. SPINE: No scoliosis or deformity SKIN: No rashes CENTRAL NERVOUS SYSTEM: No focal deficits, tone is normal in all 4 extremities. Extremities: There is no significant peripheral edema. No clubbing, no cyanosis. Peripheral pulses are intact. - Labs CBC & Chem 7: 11/26/16 06:30 11/26/16 06:30 Labs: Abnormal Lab Results - Last 24 Hours (Table) 11/25/16 11/25/16 11/25/16 Range/Units 11:33 16:47 20:51 WBC (3.8-10.6) k/uL Hgb (11.4-16.0) gm/dL Neutrophils # (1.3-7.7) k/uL Glucose (74-99) mg/dL POC Glucose (mg/dL) 148 H 252 H 321 H (75-99) mg/dL 11/26/16 11/26/16 11/26/16 Range/Units 06:17 06:30 06:30 WBC 10.8 H (3.8-10.6) k/uL Hgb 11.0 L (11.4-16.0) gm/dL Neutrophils # 9.0 H (1.3-7.7) k/uL Glucose 234 H (74-99) mg/dL POC Glucose (mg/dL) 225 H (75-99) mg/dL Microbiology - Last 24 Hours (Table) 11/22/16 14:47 Blood Culture - Preliminary Blood No Growth after 72 hours Assessment and Plan Plan: #1 Altered mental status of unclear etiology, suspect acute anxiety/depression, right mid lung pneumonia with febrile illness. Recovered. #2 Right mid lung infiltrate/pneumonia with febrile illness. Recovered. #3 Anxiety/depression. #4 Coronary artery disease with severe stenosis with subtotally occluded proximal right coronary artery on cardiac catheterization 09/19/2016. Patient underwent cardiac catheterization and stenting on 11/25/2016, official report on the cardiac cath and stenting is not available on the chart yet. #5 Diabetes mellitus. #6 Hyperlipidemia. #7 Hypertension. #8 Chronic and ongoing tobacco dependence. #9 Hepatitis C. #10 Remote history of IV drug abuse. Recommendation: Continue present course of treatment including antibiotics, bronchodilators, cleared for discharge planning from the pulmonary perspective if cleared by cardiology. Patient can have follow-up with me on outpatient basis, which suggest sending the patient home on Levaquin for 5 more days. Time with Patient: Less than 30
--- NOTE | 2016-11-26 11:32 | PTCA ---
PERCUTANEOUS CORONARY INTERVENTION DATE OF SERVICE: 11/25/2016 PERFORMING PHYSICIAN: Rodney Alcazar MD, elementary assistant principal. PROCEDURE PERFORMED: 1 . Selective right coronary angiogram. 2. Successful stenting of the proximal right coronary artery using 2.5 x 18 mm Xience NICHOLE with a good angiographic result. INDICATIONS: This is a pleasant 55-year-old female patient who presented to the hospital with chest discomfort and was diagnosed with non- STEMI. She underwent a heart catheterization a few days ago and that showed a critical disease involving the proximal right coronary artery. She was brought today to undergo a PCI of the RCA. APPROACH: Right common femoral artery. COMPLICATION: None. LEVEL OF SEDATION: Moderate with a sedation length of 20 minutes. PROCEDURE DESCRIPTION: After obtaining an informed consent, the patient was brought to the cardiac laboratory equipment cleaner. The right common femoral artery was cannulated using micropuncture technique and the micropuncture wire passed easily. Then I place a 6 Korean in the right common femoral artery. After that, anticoagulation was initiated using Angio-Max. After that, I did engage the RCA using JR4 guiding catheter. Subsequently, I did wire the RCA using a whisper wire. Then I did after PTCA of the proximal RCA using 2.0 x 12 mm balloon and subsequently I deployed 2.5 x 18 mm Xience NICHOLE where the stent was positioned under fluoroscopy guidance then it was deployed under 12 atmospheres for 20 seconds. The following angiogram showed good angiographic results and the procedure was completed without any complication. POST PROCEDURE MANAGEMENT: 1. Dual antiplatelet therapy. 2. Risk factor modifications. 3. Follow up with the patient. LALO
[2016-11-26 11:56] LABS: Glucose,Whole Blood 173 mg/dL (75-99)
[2016-11-26 12:16] VITALS: BP 165/99; PULSE 74; RESP 18
--- NOTE | 2016-11-26 13:28 | P.DS ---
Providers Date of admission: 11/22/16 16:45 Expected date of discharge: 11/26/16 Attending physician: Liz De La Rosa Consults: 11/22/16 16:45 Consult Physician Urgent Consulting Provider: Jaylin Franklin Consult Reason/Comments: Pneumonia, COPD Do you want consulting provider notified?: Yes Consult Physician Urgent Consulting Provider: [facility] Consult Reason/Comments: Non-STEMI Do you want consulting provider notified?: Already Contacted 11/25/16 10:19 Consult Physician Routine Consulting Provider: [facility] Consult Reason/Comments: Post Interventional patient Do you want consulting provider notified?: Already Contacted Primary care physician: [facility] Course: #1 Coronary artery disease with severe stenosis with subtotally occluded proximal right coronary artery on cardiac catheterization 09/19/2016. Status post left heart catheterization on 11/25 was successful stenting of the proximal RCA using D.E.S. Continue aspirin and Brilinta. Echo shows an EF of 40-45%. #2 pneumonia of the Right mid lung with febrile illness. Continue Levaquin. Cough improving. Pulmonary service following. White count improving #3 Anxiety with depression. Resume Paxil continue with Xanax #5 Diabetes mellitus. on Amaryl and insulin sliding scale #6 Hyperlipidemia on Lipitor 80 mg daily #7 Hypertension. well controlled on current medications continue. #8 Chronic and ongoing tobacco dependence. Continue nicotine patch. Discussed smoking cessation for greater than 3 minutes #9 Hepatitis C. #10 Remote history of IV drug abuse. Plan - Discharge Summary New Discharge Prescriptions: New Atorvastatin [Lipitor] 80 mg PO DAILY #30 tab Levofloxacin [Levaquin] 500 mg PO DAILY #5 tab Nicotine 21Mg/24Hr Patch [Habitrol] 1 patch TRANSDERM DAILY #30 patch Ticagrelor [Brilinta] 90 mg PO BID #60 tab Continue Carvedilol [Coreg] 3.125 mg PO BID Albuterol Inhaler [Ventolin Hfa Inhaler] 2 puff INHALATION RT-QID PRN PRN Reason: Shortness Of Breath ALPRAZolam [Xanax] 1 mg PO BID PRN PRN Reason: Agitation Or Acute Anxiety Nitroglycerin Sl Tabs [Nitrostat] 0.4 mg SUBLINGUAL Q5M PRN PRN Reason: Chest Pain PARoxetine [Paxil] 20 mg PO DAILY Hydrocodone/Acetaminophen [Hydrocodon-Acetaminoph 7.5-325] 1 tab PO RT-Q6H PRN PRN Reason: Pain Omeprazole 20 mg PO BID Aspirin 81 mg PO DAILY Amitriptyline HCl [Elavil] 10 mg PO HS metFORMIN HCL [Glucophage] 500 mg PO TID Losartan [Cozaar] 50 mg PO BID Ipratropium-Albuterol Nebulize [Duoneb 0.5 mg-3 mg/3 ml Soln] 3 ml INHALATION RT-QID Pregabalin [Lyrica] 100 mg PO BID Methylphenidate HCl [Ritalin] 20 mg PO TID Glimepiride [Amaryl] 2 mg PO [id number]-[id number] Discharge Medication List Albuterol Inhaler [Ventolin Hfa Inhaler] 2 puff INHALATION RT-QID PRN 12/05/13 [ History] Carvedilol [Coreg] 3.125 mg PO BID 12/05/13 [History] ALPRAZolam [Xanax] 1 mg PO BID PRN 10/30/14 [History] Nitroglycerin Sl Tabs [Nitrostat] 0.4 mg SUBLINGUAL Q5M PRN 10/30/14 [History] PARoxetine [Paxil] 20 mg PO DAILY 11/04/14 [History] Hydrocodone/Acetaminophen [Hydrocodon-Acetaminoph 7.5-325] 1 tab PO RT-Q6H PRN 05/27/15 [History] Omeprazole 20 mg PO BID 05/27/15 [History] Aspirin 81 mg PO DAILY 08/07/15 [History] Amitriptyline HCl [Elavil] 10 mg PO HS 12/13/15 [History] metFORMIN HCL [Glucophage] 500 mg PO TID 05/25/16 [History] Losartan [Cozaar] 50 mg PO BID 09/17/16 [History] Glimepiride [Amaryl] 2 mg PO AC-BRKT 11/22/16 [History] Ipratropium-Albuterol Nebulize [Duoneb 0.5 mg-3 mg/3 ml Soln] 3 ml INHALATION RT -QID 11/22/16 [History] Methylphenidate HCl [Ritalin] 20 mg PO TID 11/22/16 [History] Pregabalin [Lyrica] 100 mg PO BID 11/22/16 [History] Atorvastatin [Lipitor] 80 mg PO DAILY #30 tab 11/26/16 [Rx] Levofloxacin [Levaquin] 500 mg PO DAILY #5 tab 11/26/16 [Rx] Nicotine 21Mg/24Hr Patch [Habitrol] 1 patch TRANSDERM DAILY #30 patch 11/26/16 [ Rx] Ticagrelor [Brilinta] 90 mg PO BID #60 tab 11/26/16 [Rx] Follow up Appointment(s)/Referral(s): Duane Rodríguez MD [STAFF PHYSICIAN] - 1 Week Albina Oconnor MD [Primary Care Provider] - 3 Days Activity/Diet/Wound Care/Special Instructions: *personnel clerks supervisor Brilinta script from [facility] at time of discharge* Discharge Disposition: HOME SELF-CARE
--- NOTE | 2016-11-26 14:17 | P.PN ---
Subjective This is a 55-year-old female with history of coronary artery disease, diabetes, hypertension, hyperlipidemia, osteoarthritis, prior CVA, nicotine dependence, anxiety and depression, who recently underwent a cardiac catheterization in September of this year by Dr. Hunt where the patient was found to have severe single vessel coronary artery disease with subtotally occluded proximal RCA fills by collateral from the left system, unchanged from prior. According to the cardiac catheterization maximal medical therapy was advised at that time. Patient states she had a follow-up appointment with Dr. Hunt in the office and subsequently an appointment had been made to have angioplasty and stenting of the right coronary artery on the of this month. An echocardiogram with Doppler study was also performed in September which revealed an ejection fraction of 55-60%. The patient presents to the hospital on this occasion with mental status changes, she states she's been incredibly stressed, mild confusion, and states that she's been falling frequently. She has had a persistent cough, denies any chest discomfort. Mild dizziness and headache. Chest x-ray on admission revealed evidence of pneumonic infiltrate in the right middle lobe new as compared with prior exam. EKG shows a normal sinus rhythm with no acute changes. 11/26/2016 Patient was taken to the cardiac catheterization lab yesterday where she underwent angioplasty with stenting of the right coronary artery. She was seen and examined this morning, denies any chest pain or difficulty in breathing. Hemodynamically stable. EKG shows normal sinus rhythm with no changes from post -PCI. Objective - Vital Signs Vital signs: Vital Signs Temp 97.9 F 11/26/16 08:00 Pulse 74 11/26/16 12:00 Resp 18 11/26/16 12:00 BP 165/99 11/26/16 12:00 Pulse Ox 96 11/26/16 12:00 Intake & Output 11/25/16 11/26/16 11/26/16 18:59 06:59 18:59 Intake Total 651 990 200 Output Total 400 620 Balance 251 370 200 Weight 85.7 kg 85.7 kg Intake: IV 129 Intake, IV Titration 30 Amount Sodium Chloride 0.9% 1, 30 000 ml @ 100 mls/hr IV . Q10H [facility] Rx#:[id number] Oral 522 960 200 Output: Urine 400 620 Other: Voiding Method Toilet Toilet # Voids 2 # Bowel Movements 1 - Exam PHYSICAL EXAMINATION: HEENT: Head is atraumatic, normocephalic. Pupils equal, round. Neck is supple. There is no elevated jugular venous pressure. HEART EXAMINATION: Heart S1, S2 normal. No murmur or gallop heard. CHEST EXAMINATION: Lungs are clear to auscultation. ABDOMEN: Soft, nontender. Bowel sounds are heard. No organomegaly noted. Right groin soft, no evidence of any hematoma. EXTREMITIES: 2+ peripheral pulses with no evidence of peripheral edema and no calf tenderness noted. NEUROLOGIC patient is awake, alert and oriented -3. . - Labs CBC & Chem 7: 11/26/16 06:30 11/26/16 06:30 Labs: Abnormal Lab Results - Last 24 Hours (Table) 11/25/16 11/25/16 11/26/16 Range/Units 16:47 20:51 06:17 WBC (3.8-10.6) k/uL Hgb (11.4-16.0) gm/dL Neutrophils # (1.3-7.7) k/uL Glucose (74-99) mg/dL POC Glucose (mg/dL) 252 H 321 H 225 H (75-99) mg/dL 11/26/16 11/26/16 11/26/16 Range/Units 06:30 06:30 11:54 WBC 10.8 H (3.8-10.6) k/uL Hgb 11.0 L (11.4-16.0) gm/dL Neutrophils # 9.0 H (1.3-7.7) k/uL Glucose 234 H (74-99) mg/dL POC Glucose (mg/dL) 173 H (75-99) mg/dL Microbiology - Last 24 Hours (Table) 11/22/16 14:47 Blood Culture - Preliminary Blood No Growth after 72 hours Assessment and Plan Plan: Assessment and plan #1 mental status changes with weakness and falls #2 abnormal troponins, patient denies having any chest discomfort. Status post angioplasty and stenting of the RCA #3 evidence of pneumonia on chest x-ray with associated low-grade temperature. #4 hypertension # 5 hyperlipidemia #6 diabetes #7 nicotine dependence #8 COPD #9 prior CVA #10 depression and anxiety Plan Patient may be able to be discharged home today. We will make her a follow-up appointment to see Dr. Hunt in the office post discharge. DNP note has been reviewed, I agree with a documented findings and plan of care. Patient was seen and examined.
== END 2016-11-26 15:39 | disposition home or self-care (01) | DRG 246 ==
LOC: EC 14:18 → 6SEL 16:45
PROVIDERS: ADMIT Internal Medicine; ATTEND Internal Medicine
PROC: B2141ZZ Fluoroscopy of Right Heart using Low Osmolar Contrast (ICD-10-PCS; 2016-11-25)
PROC: 027034Z Dilation of Coronary Artery, One Artery with Drug-eluting Intraluminal Device, Percutaneous Approach (ICD-10-PCS; principal; 2016-11-25 11:55)
DX: I25.110 Atherosclerotic heart disease of native coronary artery with unstable angina pectoris (principal); J18.9 Pneumonia, unspecified organism; J44.0 Chronic obstructive pulmonary disease with (acute) lower respiratory infection; E11.40 Type 2 diabetes mellitus with diabetic neuropathy, unspecified; B19.20 Unspecified viral hepatitis C without hepatic coma; I10 Essential (primary) hypertension; E78.5 Hyperlipidemia, unspecified; F17.200 Nicotine dependence, unspecified, uncomplicated; I25.2 Old myocardial infarction; K21.9 Gastro-esophageal reflux disease without esophagitis; R29.6 Repeated falls; M19.90 Unspecified osteoarthritis, unspecified site; R01.1 Cardiac murmur, unspecified; F41.9 Anxiety disorder, unspecified; F32.9 Major depressive disorder, single episode, unspecified; Z79.84 Long term (current) use of oral hypoglycemic drugs; Z79.82 Long term (current) use of aspirin; Z79.899 Other long term (current) drug therapy; Z82.49 Family history of ischemic heart disease and other diseases of the circulatory system
CPT/HCPCS: 36415; 36600; 71020; 80048; 80053; 80061; 81003; 82550; 82553; 82805; 83036; 83605; 84484; 85025; 85610; 85730; 87040; 87086; 93005; 93306; 94640; 94644; 96361; 96365; 96375; 99291

== ENCOUNTER → 2017-02-27 | Outpatient (CLI) | payer OTHER ==
--- NOTE | 2017-02-28 10:17 | MM ---
Reason for exam: screening (asymptomatic). Last mammogram was performed 3 years and 9 months ago. History: Patient is postmenopausal. Physical Findings: A clinical breast exam by your physician is recommended on an annual basis and results should be correlated with mammographic findings. MG 3D Screening Mammo W/Cad Bilateral CC and MLO view(s) were taken. Prior study comparison: June 14, 2013, bilateral digital screening mammo w/CAD. May 25, 2012, bilateral digital screening mammo w/CAD. The breast tissue is heterogeneously dense. This may lower the sensitivity of mammography. Stable benign calcifications. There is no discrete abnormality. No significant changes when compared with prior studies. ASSESSMENT: Benign, BI-RAD 2 RECOMMENDATION: Routine screening mammogram of both breasts in 1 year.
== END | disposition home or self-care (01) ==
LOC: RADMAMWWP 13:47
PROVIDERS: ATTEND Family Medicine
DX: Z12.31 Encounter for screening mammogram for malignant neoplasm of breast (principal)
CPT/HCPCS: 77063; G0202

== ENCOUNTER → 2017-02-27 | Outpatient (CLI) | payer OTHER ==
--- NOTE | 2017-03-01 14:09 | P.ARTDOP ---
Arterial Doppler LOWER EXTREMITY ARTERIAL DOPPLER: DATE OF SERVICE: 02/27/2017 Reason for study: Right leg claudication. Doppler waveforms: Multiphasic bilaterally throughout. Pulse volume recording: Normal configuration. Pressure gradients: None. Ankle-brachial indices: Greater than 1 bilaterally. Toe pressures: 105 on the right, 144 on the left Impression: Normal study.
== END | disposition home or self-care (01) ==
LOC: RADUSWWP 13:42
PROVIDERS: ATTEND Anesthesiology
DX: I73.9 Peripheral vascular disease, unspecified (principal)
CPT/HCPCS: 77063; 93923

== ENCOUNTER 2017-07-04 14:56 | Observation (INO) | payer OTHER ==
[2017-07-04] MEDS ORDERED: ASPIRIN 81 MG PO STA (16:01)
[2017-07-04] MEDS ORDERED: SODIUM CHLORIDE 0.9% 1,000 ML IV STA (16:01)
[2017-07-04] MEDS ORDERED: HEPARIN SODIUM,PORCINE 5,000 UNIT/ML 1 ML VIAL IV STA (16:01)
[2017-07-04] MEDS ORDERED: NITROGLYCERIN OINT 1 INCH/GM PACKET TOPICAL STA (16:02)
--- NOTE | 2017-07-04 16:06 | ED ---
Arrhythmia/Palpitations HPI - General Chief Complaint: Arrhythmia/Palpitations Stated Complaint: chest pain Time Seen by Provider: 07/04/17 15:54 Source: patient, RN notes reviewed Mode of arrival: wheelchair Limitations: no limitations - History of Present Illness Initial Comments: This is a 56-year-old female history of a cardiac stent last November who was seen by her doctor today and found have some EKG changes. She also states she's been having midsternal chest pain it also goes across her back and left side of her chest she currently states the pain is about 8/2/10 severity no fevers chills nausea vomiting sweats or other symptoms. The patient does take Plavix and does take 81 mg of aspirin every day which she did take today. Dr. Alcazar did talk to me prior to the patient's arrival to inform him of the events. - Related Data Home Medications Medication Instructions Recorded Confirmed Albuterol Inhaler [Ventolin Hfa 2 puff INHALATION RT-QID PRN 12/05/13 07/04/17 Inhaler] Carvedilol [Coreg] 3.125 mg PO BID 12/05/13 07/04/17 ALPRAZolam [Xanax] 1 mg PO BID PRN 10/30/14 07/04/17 Nitroglycerin Sl Tabs [Nitrostat] 0.4 mg SUBLINGUAL Q5M PRN 10/30/14 07/04/17 PARoxetine [Paxil] 30 mg PO DAILY 11/04/14 07/04/17 Omeprazole 20 mg PO BID 05/27/15 07/04/17 Aspirin 81 mg PO DAILY 08/07/15 07/04/17 Amitriptyline HCl [Elavil] 10 mg PO HS 12/13/15 07/04/17 metFORMIN HCL [Glucophage] 500 mg PO TID 05/25/16 07/04/17 Losartan [Cozaar] 50 mg PO BID 09/17/16 07/04/17 Glimepiride [Amaryl] 2 mg PO AC-BRKFST 11/22/16 07/04/17 Ipratropium-Albuterol Nebulize 3 ml INHALATION RT-QID PRN 11/22/16 07/04/17 [Duoneb 0.5 mg-3 mg/3 ml Soln] Methylphenidate HCl [Ritalin] 20 mg PO TID 11/22/16 07/04/17 Pregabalin [Lyrica] 100 mg PO BID 11/22/16 07/04/17 Atorvastatin [Lipitor] 40 mg PO HS 07/04/17 07/04/17 Clopidogrel Bisulfate [Plavix] 75 mg PO DAILY 07/04/17 07/04/17 HYDROcodone/APAP 10-325MG [[place] 1 tab PO Q6H 07/04/17 07/04/17 10-325] Oxybutynin Chloride 5 mg PO TID 07/04/17 07/04/17 Zolpidem Tartrate [Ambien] 5 mg PO HS 07/04/17 07/04/17 Previous Rx's Medication Instructions Recorded Nicotine 21Mg/24Hr Patch [Habitrol] 1 patch TRANSDERM DAILY #30 patch 11/26/16 Allergies Allergy/AdvReac Type Severity Reaction Status Date / Time gabapentin Allergy Swelling Verified 07/04/17 16:12 atorvastatin AdvReac Leg Cramps Verified 07/04/17 16:12 Review of Systems ROS Statement: Those systems with pertinent positive or pertinent negative responses have been documented in the HPI. ROS Other: All systems not noted in ROS Statement are negative. Past Medical History Past Medical History: Coronary Artery Disease (CAD), Chest Pain / Angina, COPD, Diabetes Mellitus, GERD/Reflux, Hyperlipidemia, Hypertension, Myocardial Infarction ([place]), Osteoarthritis (OA), Pulmonary Embolus ([place]) Additional Past Medical History / Comment(s): Severe single-vessel coronary artery disease with subtotally occluded proximal right coronary artery, Hep C, IV drug abuse>25 years ago, murmur, stroke behind eye, neuropathy Last Myocardial Infarction Date:: 2010 History of Any Multi-Drug Resistant Organisms: None Reported Past Surgical History: Section, Heart Catheterization, Tubal Ligation Additional Past Surgical History / Comment(s): STRESS TEST, HERB Past Anesthesia/Blood Transfusion Reactions: No Reported Reaction Date of Last Stent Placement:: 2010 Past Psychological History: Anxiety, Depression Smoking Status: Current every day smoker Past Alcohol Use History: None Reported Past Drug Use History: None Reported - Past Family History Mother Family Medical History: Myocardial Infarction ([place]) Father Family Medical History: Unable to Obtain Additional Family Medical History / Comment(s): PT STATED HER FATHER IN MVA 1968 General Exam - General Exam Comments Initial Comments: This is a well-developed well-nourished awake alert oriented 3 female Limitations: no limitations General appearance: alert, anxious Head exam: Present: atraumatic, normocephalic, normal inspection Eye exam: Present: normal appearance, PERRL, EOMI. Absent: scleral icterus, conjunctival injection, periorbital swelling ENT exam: Present: normal exam, mucous membranes moist Neck exam: Present: normal inspection. Absent: tenderness, meningismus, lymphadenopathy Respiratory exam: Present: normal lung sounds bilaterally. Absent: respiratory distress, wheezes, rales, rhonchi, stridor Cardiovascular Exam: Present: regular rate, normal rhythm, normal heart sounds. Absent: systolic murmur, diastolic murmur, rubs, gallop, clicks GI/Abdominal exam: Present: soft, normal bowel sounds. Absent: distended, tenderness, guarding, rebound, rigid Extremities exam: Present: normal inspection, full ROM, normal capillary refill. Absent: tenderness, pedal edema, joint swelling, calf tenderness Back exam: Present: normal inspection Neurological exam: Present: alert, oriented X3, CN II-XII intact Psychiatric exam: Present: normal affect, normal mood Skin exam: Present: warm, dry, intact, normal color. Absent: rash Course Vital Signs 07/04/17 07/04/17 07/04/17 15:10 16:24 17:28 Temperature 98.3 F Pulse Rate 76 72 73 Respiratory 20 16 16 Rate Blood Pressure 180/79 161/74 165/72 O2 Sat by Pulse 98 97 95 Oximetry Medical Decision Making - Medical Decision Making I did discuss case with Dr. De La Rosa and Dr. Hunt. Patient will be admitted with consultation by Dr. Hunt - Lab Data Result diagrams: 07/04/17 16:21 07/04/17 16:21 Lab Results 07/04/17 07/04/17 07/04/17 Range/Units 16:21 16:21 16:21 WBC 8.5 (3.8-10.6) k/uL RBC 4.60 (3.80-5.40) m/uL Hgb 11.0 L (11.4-16.0) gm/dL Hct 36.4 (34.0-46.0) % MCV 79.2 L (80.0-100.0) fL MCH 23.9 L (25.0-35.0) pg MCHC 30.1 L (31.0-37.0) g/dL RDW 17.1 H (11.5-15.5) % Plt Count 285 (150-450) k/uL Neutrophils % 67 % Lymphocytes % 22 % Monocytes % 5 % Eosinophils % 2 % Basophils % 1 % Neutrophils # 5.7 (1.3-7.7) k/uL Lymphocytes # 1.9 (1.0-4.8) k/uL Monocytes # 0.5 (0-1.0) k/uL Eosinophils # 0.2 (0-0.7) k/uL Basophils # 0.1 (0-0.2) k/uL Hypochromasia Marked Anisocytosis Slight Microcytosis Slight PT (9.0-12.0) sec INR (<1.2) APTT (22.0-30.0) sec Sodium 143 (137-145) mmol/L Potassium 4.0 (3.5-5.1) mmol/L Chloride 106 (98-107) mmol/L Carbon Dioxide 25 (22-30) mmol/L Anion Gap 12 mmol/L BUN 7 (7-17) mg/dL Creatinine 0.76 (0.52-1.04) mg/dL Est GFR (MDRD) Af Amer >60 (>60 ml/min/1.73 sqM) Est GFR (MDRD) Non-Af >60 (>60 ml/min/1.73 sqM) Glucose 139 H (74-99) mg/dL Calcium 9.5 (8.4-10.2) mg/dL Magnesium 1.7 (1.6-2.3) mg/dL Total Bilirubin 0.1 L (0.2-1.3) mg/dL AST 11 L (14-36) U/L ALT 18 (9-52) U/L Alkaline Phosphatase 86 (38-126) U/L Total Creatine Kinase 50 (30-135) U/L CK-MB (CK-2) 0.7 (0.0-2.4) ng/mL CK-MB (CK-2) Rel Index 1.4 Troponin I <0.012 (0.000-0.034) ng/mL Total Protein 6.5 (6.3-8.2) g/dL Albumin 3.9 (3.5-5.0) g/dL 07/04/17 Range/Units 16:21 WBC (3.8-10.6) k/uL RBC (3.80-5.40) m/uL Hgb (11.4-16.0) gm/dL Hct (34.0-46.0) % MCV (80.0-100.0) fL MCH (25.0-35.0) pg MCHC (31.0-37.0) g/dL RDW (11.5-15.5) % Plt Count (150-450) k/uL Neutrophils % % Lymphocytes % % Monocytes % % Eosinophils % % Basophils % % Neutrophils # (1.3-7.7) k/uL Lymphocytes # (1.0-4.8) k/uL Monocytes # (0-1.0) k/uL Eosinophils # (0-0.7) k/uL Basophils # (0-0.2) k/uL Hypochromasia Anisocytosis Microcytosis PT 9.7 (9.0-12.0) sec INR 1.0 (<1.2) APTT 22.9 (22.0-30.0) sec Sodium (137-145) mmol/L Potassium (3.5-5.1) mmol/L Chloride (98-107) mmol/L Carbon Dioxide (22-30) mmol/L Anion Gap mmol/L BUN (7-17) mg/dL Creatinine (0.52-1.04) mg/dL Est GFR (MDRD) Af Amer (>60 ml/min/1.73 sqM) Est GFR (MDRD) Non-Af (>60 ml/min/1.73 sqM) Glucose (74-99) mg/dL Calcium (8.4-10.2) mg/dL Magnesium (1.6-2.3) mg/dL Total Bilirubin (0.2-1.3) mg/dL AST (14-36) U/L ALT (9-52) U/L Alkaline Phosphatase (38-126) U/L Total Creatine Kinase (30-135) U/L CK-MB (CK-2) (0.0-2.4) ng/mL CK-MB (CK-2) Rel Index Troponin I (0.000-0.034) ng/mL Total Protein (6.3-8.2) g/dL Albumin (3.5-5.0) g/dL - EKG Data -: EKG Interpreted by Me EKG shows normal: sinus rhythm (Sinus rhythm rate 65. Interval 208 QRS duration 90 QT since QTC 380/43 poor R-wave progression nonspecific ST configuration this is a same configuration is in the office today however apparently changed from previous.) - Radiology Data Radiology results: report reviewed (I did review the imaging and report no acute findings.), image reviewed Disposition Clinical Impression: Chest pain, Acute electrocardiogram changes Disposition: ADMITTED IP TO THIS [facility] Condition: Stable Referrals: Albina Oconnor MD [Primary Care Provider] - 1-2 days
[2017-07-04] MEDS ORDERED: HEPARIN SOD,PORK IN 0.45% NACL 25,000 UNIT in 0.45% NACL 1 500ML.BAG IV SCH (16:15)
[2017-07-04 16:35] LABS: Anisocytosis Slight; Basophils # (A) 0.1 k/uL (0-0.2); Basophils % (A) 1 %; Eosinophils # (A) 0.2 k/uL (0-0.7); Eosinophils % (A) 2 %; HCT 36.4 % (34.0-46.0); Hypochromasia Marked; Lymphocytes # (A) 1.9 k/uL (1.0-4.8); Lymphocytes % (A) 22 %; MCH 23.9 pg (25.0-35.0); MCHC 30.1 g/dL (31.0-37.0); MCV 79.2 fL (80.0-100.0); Mean Platelet Volume 7.8; Microcytosis Slight; Monocytes # (A) 0.5 k/uL (0-1.0); Monocytes % (A) 5 %; Neutrophils # (A) 5.7 k/uL (1.3-7.7); Neutrophils % (A) 67 %; Platelet Count 285 k/uL (150-450); RDW 17.1 % (11.5-15.5); WBC 8.5 k/uL (3.8-10.6)
[2017-07-04 16:45] LABS: Partial Thromboplastin Time 22.9 sec (22.0-30.0); Prothrombin Time 9.7 sec (9.0-12.0)
[2017-07-04 16:48] LABS: ALT 18 U/L (9-52); AST 11 U/L (14-36); Albumin 3.9 g/dL (3.5-5.0); Alkaline Phosphatase 86 U/L (38-126); Anion Gap 12 mmol/L; Blood Urea Nitrogen 7 mg/dL (7-17); Calcium 9.5 mg/dL (8.4-10.2); Carbon Dioxide 25 mmol/L (22-30); Chloride 106 mmol/L (98-107); Glucose 139 mg/dL (74-99); Magnesium 1.7 mg/dL (1.6-2.3); Sodium 143 mmol/L (137-145); Total Bilirubin 0.1 mg/dL (0.2-1.3); Total Protein 6.5 g/dL (6.3-8.2)
[2017-07-04 16:59] LABS: Creatine Kinase 50 U/L (30-135)
--- NOTE | 2017-07-04 17:03 | XR ---
EXAMINATION TYPE: XR chest 2V DATE OF EXAM: 07/04/2017 COMPARISON: 02/20/2017 HISTORY: Dysrhythmia TECHNIQUE: Frontal and lateral views of the chest are obtained. FINDINGS: There is no heart failure nor confluent pneumonic infiltrate. Costophrenic angles are ximena r. Bony thorax is intact. IMPRESSION: No active cardiopulmonary disease. No change.
[2017-07-04 17:10] LABS: Creatine Kinase MB 0.7 ng/mL (0.0-2.4); Troponin I <0.012 ng/mL (0.000-0.034)
[2017-07-04] MEDS ORDERED: KETOROLAC 30 MG/ML 1 ML VIAL IVP STA (17:20)
[2017-07-04] MEDS ORDERED: NALOXONE 0.4 MG/ML 1 ML VIAL IV PRN (18:28)
[2017-07-04] MEDS ORDERED: HYDROmorphone 0.5 MG/0.5 ML SYRINGE IVP STA (18:29)
[2017-07-04] MEDS ORDERED: ALPRAZolam 0.5 MG TAB PO PRN (18:30)
[2017-07-04] MEDS ORDERED: ALBUTEROL INHALER 60 PUFF/8 GM INHALER INHALATION PRN (18:30)
[2017-07-04] MEDS ORDERED: IPRATROPIUM-ALBUTEROL 3 ML NEB INHALATION PRN (18:30)
[2017-07-04] MEDS ORDERED: NITROGLYCERIN SL TABS 0.4 MG TAB SUBLINGUAL PRN (18:30)
[2017-07-04] MEDS ORDERED: CARVEDILOL 3.125 MG TAB PO STA (18:42)
[2017-07-04] MEDS ORDERED: LOSARTAN 50 MG TAB PO STA (18:43)
[2017-07-04] MEDS ORDERED: ZOLPIDEM 5 MG TAB PO SCH (21:00)
[2017-07-04] MEDS ORDERED: ATORVASTATIN 40 MG TAB PO SCH (21:00)
[2017-07-04] MEDS ORDERED: AMITRIPTYLINE HCL 10 MG TAB PO SCH (21:00)
[2017-07-04 21:06] VITALS: BMI 32.5
[2017-07-04] MEDS: OXYBUTYNIN CHLORIDE 5 MG TAB PO SCH (21:21)
[2017-07-04] MEDS: metFORMIN 500 MG TAB PO SCH (21:22)
[2017-07-04] MEDS: METHYLPHENIDATE HCL 10 MG TAB PO SCH (21:22)
[2017-07-04] MEDS: HYDROcodone/APAP 10-325MG 1 EACH TAB PO SCH (21:22)
[2017-07-04] MEDS: PREGABALIN 100 MG CAP PO SCH (21:23)
[2017-07-04] MEDS: PANTOPRAZOLE 40 MG TABLET PO SCH (21:23)
[2017-07-04] MEDS: HYDROmorphone 0.5 MG/0.5 ML SYRINGE IVP PRN (22:27)
[2017-07-04] MEDS: NITROGLYCERIN OINT 1 INCH/GM PACKET TOPICAL SCH (23:30)
[2017-07-05] MEDS: HYDROcodone/APAP 10-325MG 1 EACH TAB PO SCH ×3 (01:19→12:42)
[2017-07-05] MEDS: HYDROmorphone 0.5 MG/0.5 ML SYRINGE IVP PRN ×2 (01:20→06:05)
[2017-07-05] MEDS: NITROGLYCERIN OINT 1 INCH/GM PACKET TOPICAL SCH (04:34)
[2017-07-05] MEDS ORDERED: GLIMEPIRIDE 2 MG TAB PO SCH (07:30)
[2017-07-05] MEDS ORDERED: CARVEDILOL 3.125 MG TAB PO SCH (07:30)
[2017-07-05 08:05] VITALS: RESP 16
[2017-07-05] MEDS ORDERED: NICOTINE 21MG/24HR PATCH TRANSDERM SCH (09:00)
[2017-07-05] MEDS ORDERED: PARoxetine 10 MG TAB PO SCH (09:00)
[2017-07-05] MEDS ORDERED: LOSARTAN 50 MG TAB PO SCH (09:00)
[2017-07-05] MEDS ORDERED: ASPIRIN 81 MG PO SCH (09:00)
[2017-07-05] MEDS ORDERED: CLOPIDOGREL 75 MG TAB PO SCH (09:00)
[2017-07-05] MEDS ORDERED: CARVEDILOL 6.25 MG TAB PO SCH (09:20)
[2017-07-05] MEDS ORDERED: ISOSORBIDE MONONITRATE ER 30 MG TAB.ER.24H PO SCH (09:30)
--- NOTE | 2017-07-05 09:47 | PN ---
PROGRESS NOTE Mrs. Parekh is a 56-year-old female who was referred from the office by Dr. Alcazar yesterday because of symptoms of chest discomfort. She has a known history of coronary disease, status post percutaneous revascularization of her right coronary artery with chronically occluded PDA. She presented with symptoms of chest discomfort. She is feeling better at this time. She has back discomfort but no chest discomfort. Her breathing has been stable. She denies any dizziness or palpitation. She denies any nausea. She continues to be on IV heparin, amitriptyline 10 mg daily, aspirin once a day, Lipitor 40 mg daily, Coreg 3.125 mg twice a day, Plavix 75 mg daily, glimepiride, losartan 50 mg twice a day, metformin 500 mg 3 times a day, nitro paste, paroxetine, Lyrica and nicotine patch. PHYSICAL EXAMINATION: Blood pressure 144/60 with the heart rate in the 80s. LUNGS: Clear. HEART: Regular rate and rhythm. S1, S2. No S3 with systolic murmur heard at the base, ejection type. No diastolic murmur. ABDOMEN: Soft, nontender. Positive bowel sounds. No organomegaly. EXTREMITIES: No edema. LAB DATA: Lab data revealed troponin of less than 0.012. BUN and creatinine 7 and 0.76. Hemoglobin of 11. Her EKG revealed a sinus mechanism with ST-T wave changes in the inferolateral leads. IMPRESSION: 1. Chest discomfort with no evidence of acute coronary syndrome. 2. Status post stenting of the right coronary artery with known occluded right PDA. 3. Hypertension. 4. Hyperlipidemia. 5. Diabetes mellitus. 6. Chronic tobacco use. RECOMMENDATION: I will stop her heparin, switch her to oral nitrate. Adjust her medical therapy and increase her level activity. If she is stable, she should be able to be discharged home today and followed as an outpatient with Dr. Alcazar. MMODL / IJN: [id number] /
[2017-07-05] MEDS: metFORMIN 500 MG TAB PO SCH (10:33)
[2017-07-05] MEDS: PANTOPRAZOLE 40 MG TABLET PO SCH (10:33)
[2017-07-05] MEDS: PREGABALIN 100 MG CAP PO SCH (10:33)
[2017-07-05] MEDS: OXYBUTYNIN CHLORIDE 5 MG TAB PO SCH (10:34)
[2017-07-05] MEDS: METHYLPHENIDATE HCL 10 MG TAB PO SCH (10:38)
[2017-07-05 11:34] VITALS: BP 122/57; PULSE 72; TEMP 98.1
--- NOTE | 2017-07-05 12:05 | P.HPIM ---
History of Present Illness H&P Date: 07/05/17 Chief Complaint: Chest pain Vane Parekh is a 56-year-old female history of a cardiac stent last November who was seen by doctor Marilee on the day of admission, she was complaining of chest pain, and found have some EKG changes. She states that she has been having midsternal chest pain radiating to her back and left side of her chest. Patient states that she has shortness of breath but states that this is chronic she has a known history of COPD there is no recent change in her shortness of breath there is no fevers chills nausea vomiting sweats or other symptoms. The patient does take Plavix and does take 81 mg of aspirin every day which she did take today. Patient was admitted for 24-hour observation cardiology consult was requested she was started on IV heparin. Past Medical History Past Medical History: Coronary Artery Disease (CAD), Chest Pain / Angina, COPD, Diabetes Mellitus, GERD/Reflux, Hyperlipidemia, Hypertension, Myocardial Infarction ([place]), Osteoarthritis (OA), Pulmonary Embolus ([place]) Additional Past Medical History / Comment(s): Severe single-vessel coronary artery disease with subtotally occluded proximal right coronary artery, Hep C, IV drug abuse>25 years ago, murmur, stroke behind eye, neuropathy Last Myocardial Infarction Date:: 2010 History of Any Multi-Drug Resistant Organisms: None Reported Past Surgical History: Section, Heart Catheterization, Heart Catheterization With Stent, Tubal Ligation Additional Past Surgical History / Comment(s): STRESS TEST, HERB Past Anesthesia/Blood Transfusion Reactions: No Reported Reaction Date of Last Stent Placement:: 2016 Smoking Status: Current every day smoker - Past Family History Mother Family Medical History: Myocardial Infarction ([place]) Additional Family Medical History / Comment(s): of a heart attack Father Family Medical History: Unable to Obtain Additional Family Medical History / Comment(s): PT STATED HER FATHER IN MVA 1968 Medications and Allergies Home Medications Medication Instructions Recorded Confirmed Type Albuterol Inhaler [Ventolin Hfa 2 puff INHALATION RT-QID PRN 12/05/13 07/04/17 History Inhaler] Carvedilol [Coreg] 3.125 mg PO BID 12/05/13 07/04/17 History ALPRAZolam [Xanax] 1 mg PO BID PRN 10/30/14 07/04/17 History Nitroglycerin Sl Tabs [Nitrostat] 0.4 mg SUBLINGUAL Q5M PRN 10/30/14 07/04/17 History PARoxetine [Paxil] 30 mg PO DAILY 11/04/14 07/04/17 History Omeprazole 20 mg PO BID 05/27/15 07/04/17 History Aspirin 81 mg PO DAILY 08/07/15 07/04/17 History Amitriptyline HCl [Elavil] 10 mg PO HS 12/13/15 07/04/17 History metFORMIN HCL [Glucophage] 500 mg PO TID 05/25/16 07/04/17 History Losartan [Cozaar] 50 mg PO BID 09/17/16 07/04/17 History Glimepiride [Amaryl] 2 mg PO AC-BRKFST 11/22/16 07/04/17 History Ipratropium-Albuterol Nebulize 3 ml INHALATION RT-QID PRN 11/22/16 07/04/17 History [Duoneb 0.5 mg-3 mg/3 ml Soln] Methylphenidate HCl [Ritalin] 20 mg PO TID 11/22/16 07/04/17 History Pregabalin [Lyrica] 100 mg PO BID 11/22/16 07/04/17 History Nicotine 21Mg/24Hr Patch [Habitrol] 1 patch TRANSDERM DAILY #30 patch 11/26/16 07/04/17 Rx Atorvastatin [Lipitor] 40 mg PO HS 07/04/17 07/04/17 History Clopidogrel Bisulfate [Plavix] 75 mg PO DAILY 07/04/17 07/04/17 History HYDROcodone/APAP 10-325MG [[place] 1 tab PO Q6H 07/04/17 07/04/17 History 10-325] Oxybutynin Chloride 5 mg PO TID 07/04/17 07/04/17 History Zolpidem Tartrate [Ambien] 5 mg PO HS 07/04/17 07/04/17 History Allergies Allergy/AdvReac Type Severity Reaction Status Date / Time gabapentin Allergy Swelling Verified 07/04/17 20:54 Physical Exam Vitals: Vital Signs Temp Pulse Pulse Resp BP BP Pulse Ox 07/05/17 11:33 98.1 F 72 16 122/57 93 L 07/05/17 08:00 97.9 F 85 16 144/69 91 L 07/05/17 04:00 18 07/05/17 03:46 97.7 F 70 18 145/72 96 07/05/17 00:00 18 07/04/17 23:56 97.8 F 80 18 132/65 96 07/04/17 20:00 97.9 F 66 18 177/73 94 L 07/04/17 19:22 66 18 161/67 95 07/04/17 18:37 77 16 178/78 94 L 07/04/17 17:28 73 16 165/72 95 07/04/17 16:24 72 16 161/74 97 07/04/17 15:10 98.3 F 76 20 180/79 98 Intake and Output 07/04/17 07/05/17 07/05/17 22:59 06:59 14:59 Intake Total 310.257 236 Balance 310.257 236 Intake: Intake, IV Titration 310.257 Amount Heparin Sod,Pork in 0.45% 310.257 NaCl 25,000 unit In 0.45 % NaCl 1 500ml.bag @ 12 UNITS/KG/HR 20.03 mls/hr IV .Q24H [facility] Rx#: [id number] Oral 236 Other: # Voids 1 1 Weight 83.4 kg In general patient is alert and oriented 3 in no apparent distress HEENT head normocephalic and atraumatic Neck is supple no JVD no goiter no lymphadenopathy Chest exam reveals a few scattered crackles no wheezing Cardiac exam reveals regular heart sounds S1 and S2 no gallops no murmurs Abdomen is soft nontender no organomegaly with normal bowel sounds Extremity exam reveals no edema no cyanosis or clubbing Results CBC & Chem 7: 07/04/17 16:21 07/04/17 16:21 Labs: Abnormal Lab Results - Last 24 Hours (Table) 07/04/17 07/04/17 07/05/17 Range/Units 16:21 16:21 05:49 Hgb 11.0 L (11.4-16.0) gm/dL MCV 79.2 L (80.0-100.0) fL MCH 23.9 L (25.0-35.0) pg MCHC 30.1 L (31.0-37.0) g/dL RDW 17.1 H (11.5-15.5) % APTT 32.4 H (22.0-30.0) sec Glucose 139 H (74-99) mg/dL Total Bilirubin 0.1 L (0.2-1.3) mg/dL AST 11 L (14-36) U/L Thrombosis Risk Factor Assmnt - Choose All That Apply Each Factor Represents 1 point: Age 41-60 years Thrombosis Risk Factor Assessment Total Risk Factor Score: 1 Thrombosis Risk Factor Assessment Level: Low Risk Assessment and Plan Plan: #1 episode of chest pain #2 history of coronary artery disease was history of angioplasty and stent placement of the right coronary artery #3 underlying history of hypertension #4 underlying history of hyperlipidemia #5 underlying history of diabetes mellitus #6 underlying history of COPD #7 underlying history of tobacco abuse At this time patient is admitted to 24-hour observation she was started on IV heparin cardiology consultation was requested she is chest pain-free Will follow during this admission
--- NOTE | 2017-07-05 13:18 | P.DS ---
Providers Date of admission: 07/04/17 18:29 Expected date of discharge: 07/05/17 Attending physician: Liz De La Rosa Consults: 07/04/17 18:29 Consult Physician Routine Consulting Provider: Rodney Alcazar Consult Reason/Comments: EKG changes, chest pain Do you want consulting provider notified?: Yes Primary care physician: Albina Oconnor Hospital Course: Diagnoses on discharge: #1 episode of chest pain #2 history of coronary artery disease was history of angioplasty and stent placement of the right coronary artery #3 underlying history of hypertension #4 underlying history of hyperlipidemia #5 underlying history of diabetes mellitus #6 underlying history of COPD #7 underlying history of tobacco abuse Hospital course: Vane Parekh is a 56-year-old female history of a cardiac stent last November who was seen by doctor Marilee on the day of admission, she was complaining of chest pain, and found have some EKG changes. She states that she has been having midsternal chest pain radiating to her back and left side of her chest. Patient states that she has shortness of breath but states that this is chronic she has a known history of COPD there is no recent change in her shortness of breath there is no fevers chills nausea vomiting sweats or other symptoms. The patient does take Plavix and does take 81 mg of aspirin every day which she did take today. Patient was admitted for 24-hour observation cardiology consult was requested she was started on IV heparin. She was evaluated by cardiology Dr. Li 3 sets of cardiac enzymes were negative patient did not have any further episodes of chest pain Dr. Li reviewed her old records and cleared her for discharge. Patient was discharged home on 07/05/2017 him to 30 mg 1 by mouth daily was added to her regimen she will follow-up with her primary care physician within one week she will also follow-up with her operation research analyst Dr. Hunt in one week Patient Condition at Discharge: Stable Plan - Discharge Summary New Discharge Prescriptions: New Isosorbide Mononitrate ER [Imdur] 30 mg PO DAILY tab.er.24h Continue Carvedilol [Coreg] 3.125 mg PO BID Albuterol Inhaler [Ventolin Hfa Inhaler] 2 puff INHALATION RT-QID PRN PRN Reason: Shortness Of Breath ALPRAZolam [Xanax] 1 mg PO BID PRN PRN Reason: Agitation Or Acute Anxiety Nitroglycerin Sl Tabs [Nitrostat] 0.4 mg SUBLINGUAL Q5M PRN PRN Reason: Chest Pain PARoxetine [Paxil] 30 mg PO DAILY Omeprazole 20 mg PO BID Aspirin 81 mg PO DAILY Amitriptyline HCl [Elavil] 10 mg PO HS metFORMIN HCL [Glucophage] 500 mg PO TID Losartan [Cozaar] 50 mg PO BID Ipratropium-Albuterol Nebulize [Duoneb 0.5 mg-3 mg/3 ml Soln] 3 ml INHALATION RT-QID PRN PRN Reason: Shortness Of Breath Pregabalin [Lyrica] 100 mg PO BID Methylphenidate HCl [Ritalin] 20 mg PO TID Glimepiride [Amaryl] 2 mg PO AC-BRKFST Nicotine 21Mg/24Hr Patch [Habitrol] 1 patch TRANSDERM DAILY #30 patch Oxybutynin Chloride 5 mg PO TID HYDROcodone/APAP 10-325MG [[place] 10-325] 1 tab PO Q6H Clopidogrel Bisulfate [Plavix] 75 mg PO DAILY Atorvastatin [Lipitor] 40 mg PO HS Zolpidem Tartrate [Ambien] 5 mg PO HS Discharge Medication List Albuterol Inhaler [Ventolin Hfa Inhaler] 2 puff INHALATION RT-QID PRN 12/05/13 [ History] Carvedilol [Coreg] 3.125 mg PO BID 12/05/13 [History] ALPRAZolam [Xanax] 1 mg PO BID PRN 10/30/14 [History] Nitroglycerin Sl Tabs [Nitrostat] 0.4 mg SUBLINGUAL Q5M PRN 10/30/14 [History] PARoxetine [Paxil] 30 mg PO DAILY 11/04/14 [History] Omeprazole 20 mg PO BID 05/27/15 [History] Aspirin 81 mg PO DAILY 08/07/15 [History] Amitriptyline HCl [Elavil] 10 mg PO HS 12/13/15 [History] metFORMIN HCL [Glucophage] 500 mg PO TID 05/25/16 [History] Losartan [Cozaar] 50 mg PO BID 09/17/16 [History] Glimepiride [Amaryl] 2 mg PO AC-BRKFST 07/04/17 [History] Ipratropium-Albuterol Nebulize [Duoneb 0.5 mg-3 mg/3 ml Soln] 3 ml INHALATION RT -QID PRN 11/22/16 [History] Methylphenidate HCl [Ritalin] 20 mg PO TID 11/22/16 [History] Pregabalin [Lyrica] 100 mg PO BID 11/22/16 [History] Nicotine 21Mg/24Hr Patch [Habitrol] 1 patch TRANSDERM DAILY #30 patch 11/26/16 [ Rx] Atorvastatin [Lipitor] 40 mg PO HS 07/04/17 [History] Clopidogrel Bisulfate [Plavix] 75 mg PO DAILY 07/04/17 [History] HYDROcodone/APAP 10-325MG [[place] 10-325] 1 tab PO Q6H 07/04/17 [History] Oxybutynin Chloride 5 mg PO TID 07/04/17 [History] Zolpidem Tartrate [Ambien] 5 mg PO HS 07/04/17 [History] Isosorbide Mononitrate ER [Imdur] 30 mg PO DAILY tab.er.24h 07/05/17 [Rx] Follow up Appointment(s)/Referral(s): Rodney Alcazar MD [STAFF PHYSICIAN] - 1 Week Albina Oconnor MD [Primary Care Provider] - 1-2 days
[2017-07-05] MEDS ORDERED: HYDROmorphone 2 MG TAB PO PRN (13:31)
== END 2017-07-05 14:45 | disposition home or self-care (01) ==
LOC: EC 14:56 → 3OBS 18:29
PROVIDERS: ADMIT Internal Medicine; ATTEND Internal Medicine
DX: R07.89 Other chest pain (principal); I25.82 Chronic total occlusion of coronary artery; I25.10 Atherosclerotic heart disease of native coronary artery without angina pectoris; J44.9 Chronic obstructive pulmonary disease, unspecified; F17.200 Nicotine dependence, unspecified, uncomplicated; E78.5 Hyperlipidemia, unspecified; I10 Essential (primary) hypertension; E11.40 Type 2 diabetes mellitus with diabetic neuropathy, unspecified; K21.9 Gastro-esophageal reflux disease without esophagitis; I25.2 Old myocardial infarction; F41.9 Anxiety disorder, unspecified; F32.9 Major depressive disorder, single episode, unspecified; M19.90 Unspecified osteoarthritis, unspecified site; R00.2 Palpitations; Z95.5 Presence of coronary angioplasty implant and graft; Z79.82 Long term (current) use of aspirin; Z79.02 Long term (current) use of antithrombotics/antiplatelets; Z79.899 Other long term (current) drug therapy; Z79.84 Long term (current) use of oral hypoglycemic drugs; Z88.8 Allergy status to other drugs, medicaments and biological substances; Z86.711 Personal history of pulmonary embolism; Z86.19 Personal history of other infectious and parasitic diseases; Z86.73 Personal history of transient ischemic attack (TIA), and cerebral infarction without residual deficits
CPT/HCPCS: 36415; 71046; 80053; 82550; 82553; 83735; 84484; 85025; 85610; 85730; 93005; 96365; 96366; 96375; 96376; 99285

== ENCOUNTER 2018-02-21 09:09 | Observation (INO) | payer OTHER ==
[2018-02-21] MEDS ORDERED: MORPHINE SULFATE 4 MG/ML SYRINGE IVP STA (09:44)
--- NOTE | 2018-02-21 09:58 | ED ---
Chest Pain HPI - General Chief Complaint: Chest Pain Stated Complaint: CHEST PAIN Time Seen by Provider: 02/21/18 09:13 Source: EMS, RN notes reviewed, old records reviewed Mode of arrival: EMS Limitations: no limitations - History of Present Illness Initial Comments: This is a 57-year-old female the ER for evasive chest pain today. Some nonspecific chest pain earlier today. Denies recent travel history or sick contacts. Pain is anterior chest, pressure no shortness of breath currently. Patient's medical history of heart disease CAD and positive history of stent placement about a year ago. Patient does continue to occur pain, patient was given nitro per EMS with no help MD Complaint: chest pain -: hour(s) Onset: during rest Pain Location: substernal, left chest Pain Radiation: none Severity: moderate Severity scale (1-10): 4 Quality: tightness, aching Consistency: constant Improves With: nothing Worsens With: nothing Treatments Prior to Arrival: aspirin, nitroglycerin - Related Data Home Medications Medication Instructions Recorded Confirmed Albuterol Inhaler [Ventolin Hfa 2 puff INHALATION RT-QID PRN 12/05/13 02/21/18 Inhaler] ALPRAZolam [Xanax] 1 mg PO BID 10/30/14 02/21/18 Nitroglycerin Sl Tabs [Nitrostat] 0.4 mg SUBLINGUAL Q5M PRN 10/30/14 02/21/18 PARoxetine [Paxil] 30 mg PO DAILY 11/04/14 02/21/18 Omeprazole 20 mg PO BID 05/27/15 02/21/18 Aspirin 81 mg PO DAILY 08/07/15 02/21/18 Amitriptyline HCl [Elavil] 10 mg PO HS 12/13/15 02/21/18 metFORMIN HCL [Glucophage] 500 mg PO AC-TID 05/25/16 02/21/18 Losartan [Cozaar] 50 mg PO BID 09/17/16 02/21/18 Glimepiride [Amaryl] 2 mg PO AC-BID 11/22/16 02/21/18 Ipratropium-Albuterol Nebulize 3 ml INHALATION RT-QID PRN 11/22/16 02/21/18 [Duoneb 0.5 mg-3 mg/3 ml Soln] Methylphenidate HCl [Ritalin] 20 mg PO TID 11/22/16 02/21/18 Pregabalin [Lyrica] 100 mg PO BID 11/22/16 02/21/18 Clopidogrel Bisulfate [Plavix] 75 mg PO DAILY 07/04/17 02/21/18 HYDROcodone/APAP 10-325MG [[place] 1 tab PO Q6H 07/04/17 02/21/18 10-325] Oxybutynin Chloride 5 mg PO BID 07/04/17 02/21/18 Zolpidem Tartrate [Ambien] 5 mg PO HS 07/04/17 02/21/18 Budesonide/Formoterol Fumarate 2 puff INHALATION RT-BID 02/21/18 02/21/18 [Symbicort 160-4.5 Mcg Inhaler] Carvedilol [Coreg] 3.125 mg PO BID 02/21/18 02/21/18 Gemfibrozil [Lopid] 600 mg PO BID 02/21/18 02/21/18 Ipratropium [place] [Atrovent Hfa] 1 puff INHALATION RT-DAILY 02/21/18 02/21/18 Previous Rx's Medication Instructions Recorded Isosorbide Mononitrate ER [Imdur] 30 mg PO DAILY tab.er.24h 07/05/17 Allergies Allergy/AdvReac Type Severity Reaction Status Date / Time gabapentin Allergy Swelling Verified 02/21/18 10:12 Review of Systems ROS Statement: Those systems with pertinent positive or pertinent negative responses have been documented in the HPI. ROS Other: All systems not noted in ROS Statement are negative. EKG Findings - EKG Comments: EKG Findings:: EKG shows sinus rate of 79, NV 230, QRS 90, QTc 447 Past Medical History Past Medical History: Coronary Artery Disease (CAD), Chest Pain / Angina, COPD, Diabetes Mellitus, GERD/Reflux, Hyperlipidemia, Hypertension, Myocardial Infarction ([place]), Osteoarthritis (OA), Pulmonary Embolus ([place]) Additional Past Medical History / Comment(s): Severe single-vessel coronary artery disease with subtotally occluded proximal right coronary artery, Hep C, IV drug abuse>25 years ago, murmur, stroke behind eye, neuropathy Last Myocardial Infarction Date:: 2010 History of Any Multi-Drug Resistant Organisms: None Reported Past Surgical History: Section, Heart Catheterization, Heart Catheterization With Stent, Tubal Ligation Additional Past Surgical History / Comment(s): STRESS TEST, HERB Past Anesthesia/Blood Transfusion Reactions: No Reported Reaction Date of Last Stent Placement:: 2016 Past Psychological History: Anxiety, Depression Smoking Status: Current every day smoker Past Alcohol Use History: None Reported Past Drug Use History: None Reported - Past Family History Mother Family Medical History: Myocardial Infarction ([place]) Additional Family Medical History / Comment(s): of a heart attack Father Family Medical History: Unable to Obtain Additional Family Medical History / Comment(s): PT STATED HER FATHER IN MVA 1968 General Exam Limitations: no limitations General appearance: alert, in no apparent distress Head exam: Present: atraumatic, normocephalic, normal inspection Eye exam: Present: normal appearance, PERRL, EOMI. Absent: scleral icterus, conjunctival injection, periorbital swelling ENT exam: Present: normal exam, mucous membranes moist Neck exam: Present: normal inspection. Absent: tenderness, meningismus, lymphadenopathy Respiratory exam: Present: normal lung sounds bilaterally. Absent: respiratory distress, wheezes, rales, rhonchi, stridor Cardiovascular Exam: Present: regular rate, normal rhythm, normal heart sounds. Absent: systolic murmur, diastolic murmur, rubs, gallop, clicks GI/Abdominal exam: Present: soft, normal bowel sounds. Absent: distended, tenderness, guarding, rebound, rigid Extremities exam: Present: normal inspection, full ROM, normal capillary refill. Absent: tenderness, pedal edema, joint swelling, calf tenderness Back exam: Present: normal inspection Neurological exam: Present: alert, oriented X3, CN II-XII intact Psychiatric exam: Present: normal affect, normal mood Skin exam: Present: warm, dry, intact, normal color. Absent: rash Course Vital Signs 02/21/18 02/21/18 02/21/18 09:31 09:33 10:00 Temperature 98 F Pulse Rate 83 76 Pulse Rate [ 85 Cold Roll Inspector ] Respiratory 20 18 Rate Blood Pressure 134/69 134/67 O2 Sat by Pulse 95 95 Oximetry - Reevaluation(s) Reevaluation #1: 02/21/18 10:43 Medical record is reviewed Reevaluation #2: 02/21/18 10:43 Patient has pain control with morphine Chest Pain MDM - MDM 57 female the ER with history of CAD coming in with active chest pain. Patient will admit for cardiac observation Critical Care Time Critical Care Time: Yes Total Critical Care Time: 31 Disposition Clinical Impression: Chest pain, Unstable angina pectoris Disposition: ADMITTED IP TO THIS HOSP Condition: Undetermined Instructions: Chest Pain (ED) Is patient prescribed a controlled substance at d/c from ED?: No Referrals: Albina Oconnor MD [Primary Care Provider] - 1-2 days
--- NOTE | 2018-02-21 10:18 | XR ---
EXAMINATION TYPE: XR chest 2V DATE OF EXAM: 02/21/2018 COMPARISON: Prior chest x-ray 07/04/2017 HISTORY: Chest pain TECHNIQUE: Frontal and lateral views of the chest are obtained. FINDINGS: There is no focal air space opacity, pleural effusion, or pneumothorax seen. The cardiac silhouette size is stable, patient is rotated which makes accentuate appearance. There are overlying cardiac leads. The osseous structures are intact. IMPRESSION: No acute cardiopulmonary process.
[2018-02-21 10:31] LABS: Anisocytosis Slight; Basophils % (A) 0 %; Eosinophils # (A) 0.2 k/uL (0-0.7); Eosinophils % (A) 3 %; HCT 32.1 % (34.0-46.0); HGB 9.7 gm/dL (11.4-16.0); Hypochromasia Marked; Lymphocytes # (A) 1.5 k/uL (1.0-4.8); Lymphocytes % (A) 21 %; MCH 23.1 pg (25.0-35.0); MCHC 30.4 g/dL (31.0-37.0); MCV 76.2 fL (80.0-100.0); Mean Platelet Volume 7.5; Microcytosis Slight; Monocytes # (A) 0.3 k/uL (0-1.0); Monocytes % (A) 4 %; Neutrophils # (A) 5.1 k/uL (1.3-7.7); Neutrophils % (A) 70 %; Platelet Count 247 k/uL (150-450); Poikilocytosis Slight; RBC 4.21 m/uL (3.80-5.40); RDW 17.7 % (11.5-15.5); WBC 7.3 k/uL (3.8-10.6)
[2018-02-21] MEDS ORDERED: NITROGLYCERIN SL TABS 0.4 MG TAB SUBLINGUAL PRN (10:38)
[2018-02-21] MEDS ORDERED: HEPARIN SODIUM,PORCINE 5,000 UNIT/ML 1 ML VIAL IV PRN (10:38)
[2018-02-21] MEDS ORDERED: ASPIRIN 81 MG PO STA (10:38)
[2018-02-21] MEDS ORDERED: MORPHINE SULFATE 4 MG/ML SYRINGE IV PRN (10:38)
[2018-02-21] MEDS ORDERED: HEPARIN SODIUM,PORCINE 5,000 UNIT/ML 1 ML VIAL IV ONE (10:38)
[2018-02-21 10:42] LABS: Partial Thromboplastin Time 22.8 sec (22.0-30.0); Prothrombin Time 9.5 sec (9.0-12.0)
[2018-02-21] MEDS ORDERED: HEPARIN SOD,PORK IN 0.45% NACL 25,000 UNIT in 0.45% NACL 1 500ML.BAG IV SCH (10:45)
[2018-02-21 10:51] LABS: ALT 12 U/L (9-52); AST 12 U/L (14-36); Albumin 3.5 g/dL (3.5-5.0); Alkaline Phosphatase 87 U/L (38-126); Anion Gap 9 mmol/L; Blood Urea Nitrogen 12 mg/dL (7-17); Calcium 8.8 mg/dL (8.4-10.2); Carbon Dioxide 29 mmol/L (22-30); Chloride 103 mmol/L (98-107); Glucose 152 mg/dL (74-99); Lipase 143 U/L (23-300); Magnesium 1.7 mg/dL (1.6-2.3); Potassium 4.5 mmol/L (3.5-5.1); Sodium 141 mmol/L (137-145); Total Bilirubin 0.1 mg/dL (0.2-1.3); Total Protein 6.2 g/dL (6.3-8.2)
[2018-02-21 11:01] LABS: Creatine Kinase 133 U/L (30-135)
[2018-02-21 11:12] LABS: Creatine Kinase MB 1.1 ng/mL (0.0-2.4)
[2018-02-21 11:14] LABS: Troponin I <0.012 ng/mL (0.000-0.034)
[2018-02-21] MEDS ORDERED: IPRATROPIUM-ALBUTEROL 3 ML NEB INHALATION STA (11:56)
[2018-02-21 12:39] LABS: Glucose,Whole Blood 116 mg/dL (75-99)
[2018-02-21] MEDS ORDERED: ALBUTEROL INHALER 60 PUFF/8 GM INHALER INHALATION PRN (12:54)
[2018-02-21] MEDS ORDERED: IPRATROPIUM-ALBUTEROL 3 ML NEB INHALATION PRN (12:54)
[2018-02-21] MEDS: IPRATROPIUM-ALBUTEROL 3 ML NEB INHALATION PRN ×2 (13:23→20:09)
[2018-02-21] MEDS: HYDROcodone/APAP 10-325MG 1 EACH TAB PO SCH ×3 (13:44→23:49)
[2018-02-21] MEDS: ISOSORBIDE MONONITRATE ER 30 MG TAB.ER.24H PO SCH (13:45)
[2018-02-21] MEDS: ALPRAZolam 1 MG TAB PO SCH (13:45)
--- NOTE | 2018-02-21 14:18 | P.CRDCN ---
History of Present Illness History of present illness: Mrs. Parekh is a pleasant 57-year-old female past medical history significant for coronary artery disease with chronic total occlusion of the mid- PDA branch, stent to proximal RCA 11/2016 and 50% disease of circumflex artery, hypertension, dyslipidemia, diabetes mellitus, COPD, GERD and chronic nicotine dependence. She follows with Dr. Alcazar in the office. We have been asked to see her in consultation for chest pain. She states she woke up this morning to let her dogs out and she had a sharp pain in her left arm and left precordial region. She walked outside to let the dogs out and felt light headed. She went in and took an aspirin, laid down and called EMS. Her pain persisted until she arrived to the ED and was given IV morphine which relieved the pain. She states she has been out of her imdur for a few days. She denies associated shortness of breath, nausea, vomiting, diaphoresis or palpitations. She also denies cough , fever or chills at home recently. She does state she had some bleeding behind her eye right last week that required laser surgery per her opthamologist. EKG on arrival reveals sinus mechanism with T-wave abnormalities inferiorly and mild upsloping ST depression in lateral lead. When compared to multiple old EKG' s this is not a change. Chest xray negative for an acute cardiopulmonary process. Laboratory data reviewed, hemoglobin 9.7, platelets 247, sodium 141, potassium 4.5, creatinine 0.79, magnesium 1.7, cardiac enzymes negative 1, NT proBNP 147. Current cardiac medications include losartan 50 mg twice a day, Imdur 30 mg daily, Plavix 75 mg daily, carvedilol 3.125 mg twice a day and aspirin 81 mg daily. Most recent echocardiogram performed November 2016 reveals impaired LV systolic function with ejection fraction 40-45% with mid to basal inferior lateral hypokinesia, mild MR and mild TR. Review of Systems At the time of my exam: CONSTITUTIONAL: Denies fever. Denies chills. EYES: Denies blurred vision. Denies vision changes. Denies eye pain. EARS, NOSE, MOUTH & THROAT: Denies headache. Denies sore throat. Denies ear pain. CARDIOVASCULAR: Denies chest pain. Denies shortness of breath. Denies orthopnea. Denies PND. Denies palpitations. RESPIRATORY: Denies cough. GASTROINTESTINAL: Denies abdominal pain. Denies diarrhea. Denies constipation. Denies nausea. Denies vomiting. MUSCULOSKELETAL: Denies myalgias. INTEGUMENTARY: Denies pruitis. Denies rash. NEUROLOGIC: Denies numbness. Denies tingling. Denies weakness. PSYCHIATRIC: Denies anxiety. Denies depression. ENDOCRINE: Denies fatigue. Denies weight change. Denies polydipsia. Denies polyurina. GENITOURINARY: Denies burning, hematuria or urgency with micturation. HEMATOLOGIC: Denies history of anemia. Denies bleeding. Past Medical History Past Medical History: Coronary Artery Disease (CAD), Chest Pain / Angina, COPD, Diabetes Mellitus, Eye Disorder, GERD/Reflux, Hearing Disorder / Deafness, Hyperlipidemia, Hypertension, Myocardial Infarction ([place]), Osteoarthritis (OA), Pneumonia, Pulmonary Embolus ([place]), Syncope Additional Past Medical History / Comment(s): Severe single-vessel coronary artery disease with subtotally occluded proximal right coronary artery-stented, cardiac murmur, NIDDM type II, neuropathy bilateral hands/feet, DAVID not wearing device at this time, hepatitis C in past and checked later and was negative, pt denies past IV drug abuse/drug use in past but is documented in prior medical history, 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 Past Anesthesia/Blood Transfusion Reactions: No Reported Reaction Date of Last Stent Placement:: 11/25/16 Smoking Status: Current every day smoker - Past Family History Mother Family Medical History: Myocardial Infarction ([place]) Additional Family Medical History / Comment(s): of a heart attack in her 60s. Father Family Medical History: Unable to Obtain Additional Family Medical History / Comment(s): PT STATED HER FATHER IN 1968 Medications and Allergies Home Medications Medication Instructions Recorded Confirmed Type Albuterol Inhaler [Ventolin Hfa 2 puff INHALATION RT-QID PRN 12/05/13 02/21/18 History Inhaler] ALPRAZolam [Xanax] 1 mg PO BID 10/30/14 02/21/18 History Nitroglycerin Sl Tabs [Nitrostat] 0.4 mg SUBLINGUAL Q5M PRN 10/30/14 02/21/18 History PARoxetine [Paxil] 30 mg PO DAILY 11/04/14 02/21/18 History Omeprazole 20 mg PO BID 05/27/15 02/21/18 History Aspirin 81 mg PO DAILY 08/07/15 02/21/18 History Amitriptyline HCl [Elavil] 10 mg PO HS 12/13/15 02/21/18 History metFORMIN HCL [Glucophage] 500 mg PO AC-TID 05/25/16 02/21/18 History Losartan [Cozaar] 50 mg PO BID 09/17/16 02/21/18 History Glimepiride [Amaryl] 2 mg PO AC-BID 11/22/16 02/21/18 History Ipratropium-Albuterol Nebulize 3 ml INHALATION RT-QID PRN 11/22/16 02/21/18 History [Duoneb 0.5 mg-3 mg/3 ml Soln] Methylphenidate HCl [Ritalin] 20 mg PO TID 11/22/16 02/21/18 History Pregabalin [Lyrica] 100 mg PO BID 11/22/16 02/21/18 History Clopidogrel Bisulfate [Plavix] 75 mg PO DAILY 07/04/17 02/21/18 History HYDROcodone/APAP 10-325MG [[place] 1 tab PO Q6H 07/04/17 02/21/18 History 10-325] Oxybutynin Chloride 5 mg PO BID 07/04/17 02/21/18 History Zolpidem Tartrate [Ambien] 5 mg PO HS 07/04/17 02/21/18 History Isosorbide Mononitrate ER [Imdur] 30 mg PO DAILY tab.er.24h 07/05/17 02/21/18 Rx Budesonide/Formoterol Fumarate 2 puff INHALATION RT-BID 02/21/18 02/21/18 History [Symbicort 160-4.5 Mcg Inhaler] Carvedilol [Coreg] 3.125 mg PO BID 02/21/18 02/21/18 History Gemfibrozil [Lopid] 600 mg PO BID 02/21/18 02/21/18 History Ipratropium [place] [Atrovent Hfa] 1 puff INHALATION RT-DAILY 02/21/18 02/21/18 History Allergies Allergy/AdvReac Type Severity Reaction Status Date / Time gabapentin Allergy Swelling Verified 02/21/18 10:12 Physical Exam Vitals: Vital Signs Temp Pulse Pulse Pulse Resp BP BP 02/21/18 12:40 85 71 18 02/21/18 12:35 98.2 F 71 18 137/62 02/21/18 11:58 98.0 F 02/21/18 11:15 76 18 112/76 02/21/18 10:00 76 18 134/67 02/21/18 09:33 85 02/21/18 09:31 98 F 83 20 134/69 Pulse Ox 02/21/18 12:40 02/21/18 12:35 96 02/21/18 11:58 02/21/18 11:15 94 L 02/21/18 10:00 95 02/21/18 09:33 02/21/18 09:31 95 Intake and Output 02/20/18 02/21/18 02/21/18 22:59 06:59 14:59 Other: Weight 84.4 kg Blood pressure 137/62 heart rate 71 afebrile maintaining oxygen saturation on nasal cannula GENERAL: This is a 57-year-old female in no apparent distress at the time of my examination. Obese. HEENT: Head is atraumatic, normocephalic. Pupils are equal, round. Sclerae anicteric. Conjunctivae are clear. Mucous membranes of the mouth are moist. Neck is supple. There is no jugular venous distention. No carotid bruit is heard. LUNGS: Expiratory wheezes. No rales or rhonchi. No chest wall tenderness is noted on palpation or with deep breathing. Diminished bilaterally. HEART: Regular rate and rhythm without murmurs, rubs or gallops. S1 and S2 heard. ABDOMEN: Soft, nontender. Bowel sounds are heard. No organomegaly noted. EXTREMITIES: No evidence of peripheral edema and no calf tenderness noted. VASCULAR: Radial and dorsalis pedis pulses palpated, no evidence of clubbing. NEUROLOGIC: Patient is awake, alert and oriented x3. Results 02/21/18 09:15 02/21/18 09:15 Cardiac Enzymes 02/21/18 02/21/18 Range/Units 09:15 09:15 AST 12 L (14-36) U/L CK-MB (CK-2) 1.1 (0.0-2.4) ng/mL Troponin I <0.012 (0.000-0.034) ng/mL Coagulation 02/21/18 Range/Units 09:15 PT 9.5 (9.0-12.0) sec APTT 22.8 (22.0-30.0) sec CBC 02/21/18 Range/Units 09:15 WBC 7.3 (3.8-10.6) k/uL RBC 4.21 (3.80-5.40) m/uL Hgb 9.7 L (11.4-16.0) gm/dL Hct 32.1 L (34.0-46.0) % Plt Count 247 (150-450) k/uL Comprehensive Metabolic Panel 02/21/18 Range/Units 09:15 Sodium 141 (137-145) mmol/L Potassium 4.5 (3.5-5.1) mmol/L Chloride 103 (98-107) mmol/L Carbon Dioxide 29 (22-30) mmol/L BUN 12 (7-17) mg/dL Creatinine 0.79 (0.52-1.04) mg/dL Glucose 152 H (74-99) mg/dL Calcium 8.8 (8.4-10.2) mg/dL AST 12 L (14-36) U/L ALT 12 (9-52) U/L Alkaline Phosphatase 87 (38-126) U/L Total Protein 6.2 L (6.3-8.2) g/dL Albumin 3.5 (3.5-5.0) g/dL Current Medications Generic Name Dose Route Start Last Admin Trade Name Freq PRN Reason Stop Dose Admin Albuterol/Ipratropium 3 ml 02/21/18 11:56 Duoneb 0.5 Mg-3 Mg/3 Ml Soln INHALATION RT-QID PRN Shortness Of Breath Or Wheezing Aspirin 81 mg 02/22/18 09:00 Aspirin PO DAILY [facility] Carvedilol 3.125 mg 02/21/18 21:00 Coreg PO BID [facility] Clopidogrel Bisulfate 75 mg 02/22/18 09:00 Plavix PO DAILY [facility] Heparin Sodium (Porcine) 0 unit 02/21/18 10:38 Heparin IV Q6HR PRN Low PTT Protocol Heparin Sodium/Sodium Chloride 500 mls @ 20 mls/hr 02/21/18 10:45 02/21/18 10 :52 25,000 unit/ Sodium Chloride IV 11.79 units/kg/hr .Q24H VERNA 20 mls/hr Administration Protocol 11.79 UNITS/KG/HR Isosorbide Mononitrate 30 mg 02/21/18 13:00 Imdur PO DAILY [facility] Losartan Potassium 50 mg 02/21/18 21:00 Cozaar PO BID VERNA Morphine Sulfate 4 mg 02/21/18 10:38 Morphine Sulfate (Inj) IV Q4HR PRN Chest Pain Nitroglycerin 0.4 mg 02/21/18 10:38 Nitrostat SUBLINGUAL Q5M PRN Chest Pain Intake and Output 02/20/18 02/21/18 02/21/18 22:59 06:59 14:59 Other: Weight 84.4 kg Patient Weight 02/22/18 06:59 Weight 84.4 kg 02/21/18 09:15 02/21/18 09:15 Assessment and Plan Assessment: ASSESSMENT Precodial chest pain, no EKG evidence of acute ishcemia on admission. Wheezing History of coronary artery disease s/p stent of proximal RCA 11/2016 with RESEARCH TEST ENGINE EVALUATOR mid -PDA branch and osital circumflex 50% disease Microcytic, hypochromic anema with no complaints of overt GI bleeding Hypertension Dyslipidemia COPD Diabetes mellitus Chronic nicotine dependence Obesity, BMI 33.0 PLAN Resume carvedilol, aspirin, plavix and imdur at home doses. Give dose of imdur now. If cardiac enzymes are normal plavix can be discontinued. Pain is very atypical for angina, possibly related to anemia or pulmonary process. Check stool for blood, if positive d/c heparin infusion. Medical team to address anemia. Obtain 2D echocardiogram and doppler study to assess cardiac structure and function. Continue to obtain serial cardiac enzymes to rule out an acute coronary event. Further recommendations to follow based on clinical course. Thank you kindly for this consultation. Nurse Practitioner note has been reviewed, I agree with a documented findings and plan of care. Patient was seen and examined.
--- NOTE | 2018-02-21 14:31 | P.HPIM ---
History of Present Illness H&P Date: 02/21/18 Chief Complaint: chest pain This is a 57-year-old female patient of Dr. Galicia. Patient presented to the emergency room with complaints of chest pain that started this morning. Patient does have a significant history of coronary artery disease with stent placement one year prior. Additional medical history includes nicotine dependence, chest pain, diabetes mellitus, GERD, hyperlipidemia, hypertension, myocardial infarction, osteoarthritis and pulmonary embolism. Patient also has a known past medical history of hepatitis C along with IV drug abuse. Chest X- ray completed emergency room showing no acute cardiopulmonary process. EKG completed showing sinus rhythm with first-degree AV block. Patient's initial troponin negative. Patient's hemoglobin 9.7. Patient denies any signs of active bleeding. Patient does state that approximately 1 week ago she was seen for having bleeding in her eye. This time patient denies chest pain or shortness of breath. Denies any nausea vomiting or diarrhea. Denies any urinary burning or frequency. Cardiology services consulted 2-D echo has been ordered Review of Systems Please refer to HPI otherwise unremarkable Past Medical History Past Medical History: Coronary Artery Disease (CAD), Chest Pain / Angina, COPD, Diabetes Mellitus, Eye Disorder, GERD/Reflux, Hearing Disorder / Deafness, Hyperlipidemia, Hypertension, Myocardial Infarction (PA), Osteoarthritis (OA), Pneumonia, Pulmonary Embolus (PE), Syncope Additional Past Medical History / Comment(s): Severe single-vessel coronary artery disease with subtotally occluded proximal right coronary artery-stented, cardiac murmur, NIDDM type II, neuropathy bilateral hands/feet, DAVID not wearing device at this time, hepatitis C in past and checked later and was negative, pt denies past IV drug abuse/drug use in past but is documented in prior medical history, 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 Past Anesthesia/Blood Transfusion Reactions: No Reported Reaction Date of Last Stent Placement:: 11/25/16 Smoking Status: Current every day smoker - Past Family History Mother Family Medical History: Myocardial Infarction (PA) Additional Family Medical History / Comment(s): of a heart attack in her 60s. Father Family Medical History: Unable to Obtain Additional Family Medical History / Comment(s): PT STATED HER FATHER IN MVA 1969 Medications and Allergies Home Medications Medication Instructions Recorded Confirmed Type Albuterol Inhaler [Ventolin Hfa 2 puff INHALATION RT-QID PRN 12/05/13 02/21/18 History Inhaler] ALPRAZolam [Xanax] 1 mg PO BID 10/30/14 02/21/18 History Nitroglycerin Sl Tabs [Nitrostat] 0.4 mg SUBLINGUAL Q5M PRN 10/30/14 02/21/18 History PARoxetine [Paxil] 30 mg PO DAILY 11/04/14 02/21/18 History Omeprazole 20 mg PO BID 05/27/15 02/21/18 History Aspirin 81 mg PO DAILY 08/07/15 02/21/18 History Amitriptyline HCl [Elavil] 10 mg PO HS 12/13/15 02/21/18 History metFORMIN HCL [Glucophage] 500 mg PO AC-TID 05/25/16 02/21/18 History Losartan [Cozaar] 50 mg PO BID 09/17/16 02/21/18 History Glimepiride [Amaryl] 2 mg PO AC-BID 11/22/16 02/21/18 History Ipratropium-Albuterol Nebulize 3 ml INHALATION RT-QID PRN 11/22/16 02/21/18 History [Duoneb 0.5 mg-3 mg/3 ml Soln] Methylphenidate HCl [Ritalin] 20 mg PO TID 11/22/16 02/21/18 History Pregabalin [Lyrica] 100 mg PO BID 11/22/16 02/21/18 History Clopidogrel Bisulfate [Plavix] 75 mg PO DAILY 07/04/17 02/21/18 History HYDROcodone/APAP 10-325MG [[place] 1 tab PO Q6H 07/04/17 02/21/18 History 10-325] Oxybutynin Chloride 5 mg PO BID 07/04/17 02/21/18 History Zolpidem Tartrate [Ambien] 5 mg PO HS 07/04/17 02/21/18 History Isosorbide Mononitrate ER [Imdur] 30 mg PO DAILY tab.er.24h 07/05/17 02/21/18 Rx Budesonide/Formoterol Fumarate 2 puff INHALATION RT-BID 02/21/18 02/21/18 History [Symbicort 160-4.5 Mcg Inhaler] Carvedilol [Coreg] 3.125 mg PO BID 02/21/18 02/21/18 History Gemfibrozil [Lopid] 600 mg PO BID 02/21/18 02/21/18 History Ipratropium [place] [Atrovent Hfa] 1 puff INHALATION RT-DAILY 02/21/18 02/21/18 History Allergies Allergy/AdvReac Type Severity Reaction Status Date / Time gabapentin Allergy Swelling Verified 02/21/18 10:12 Physical Exam Vitals: Vital Signs Temp Pulse Pulse Pulse Resp BP BP 02/21/18 13:31 88 02/21/18 13:23 85 02/21/18 12:40 85 71 18 02/21/18 12:35 98.2 F 71 18 137/62 02/21/18 11:58 98.0 F 02/21/18 11:15 76 18 112/76 02/21/18 10:00 76 18 134/67 02/21/18 09:33 85 02/21/18 09:31 98 F 83 20 134/69 Pulse Ox 02/21/18 13:31 02/21/18 13:23 02/21/18 12:40 02/21/18 12:35 96 02/21/18 11:58 02/21/18 11:15 94 L 02/21/18 10:00 95 02/21/18 09:33 02/21/18 09:31 95 Intake and Output 02/20/18 02/21/18 02/21/18 22:59 06:59 14:59 Intake Total 240 Balance 240 Intake: Oral 240 Other: Weight 84.4 kg Head normocephalic Neck supple Lungs clear to auscultation bilaterally no wheezing or crackles Heart regular rate and rhythm S1-S2, no rub or gallop Abdomen is soft nontender nondistended positive bowel sounds no hepatosplenomegaly Extremities no edema Neuro alert and orientated to 3 Results CBC & Chem 7: 02/21/18 09:15 02/21/18 09:15 Labs: Abnormal Lab Results - Last 24 Hours (Table) 02/21/18 02/21/18 02/21/18 Range/Units 09:15 09:15 12:29 Hgb 9.7 L (11.4-16.0) gm/dL Hct 32.1 L (34.0-46.0) % MCV 76.2 L (80.0-100.0) fL MCH 23.1 L (25.0-35.0) pg MCHC 30.4 L (31.0-37.0) g/dL RDW 17.7 H (11.5-15.5) % Glucose 152 H (74-99) mg/dL POC Glucose (mg/dL) 116 H (75-99) mg/dL Total Bilirubin 0.1 L (0.2-1.3) mg/dL AST 12 L (14-36) U/L Total Protein 6.2 L (6.3-8.2) g/dL Thrombosis Risk Factor Assmnt - Choose All That Apply Any of the Below Risk Factors Present?: Yes Each Factor Represents 1 point: Age 41-60 years, Obesity (BMI >25) Other Risk Factors: No Other congenital or acquired thrombophilia - If yes, enter type in comment: No Thrombosis Risk Factor Assessment Total Risk Factor Score: 2 Thrombosis Risk Factor Assessment Level: Low Risk Assessment and Plan Assessment: 1. Chest pain. Patient has known history of CAD with cardiac stent placement one year prior. EKG completed showing sinus rhythm with first-degree AV block. Cardiology services consulted patient started on heparin drip. 2-D echo has been ordered. Initial troponin negative 2. History of coronary artery disease with stent placement 1 year ago patient has been on Plavix 3. Nicotine dependence. Patient educated greater than 5 minutes on smoking cessation. Nicotine patch has been ordered 4. Anemia etiology unclear. Hemoglobin 9.7. Patient denies any signs of active bleeding. Stool for occult blood ordered along with iron studies. CBC every 8 hours. 5. History of COPD. Continue home medication 6. History of diabetes mellitus. Home medications held awaiting cardiology recommendation. Sliding scale has been added 7. History of GERD 8. History of hyperlipidemia. Home medications resumed 9. History of essential hypertension. Home medications resumed 10. History of osteoarthritis 11. History of pulmonary embolism 12. History of ADHD. Patient takes Ritalin per PCP 13. history of anxiety and depression 14. History of hep C 15. History of IV drug abuse Time with Patient: Greater than 30 (Greater than 60% of the total time spent in counseling and coordination of care. I performed an examination of the patient and discussed their management with the Nurse Practitioner. I have reviewed the Nurse Practitioner's notes and agree with the documented findings and plan of care)
--- NOTE | 2018-02-21 16:27 | ECHOF ---
Referral Reason:cp MEASUREMENTS -------- HEIGHT: 160.0 cm WEIGHT: 84.8 kg BP: 137/62 RVIDd: 2.1 cm (< 3.3) IVSd: 1.3 cm (0.6 - 1.1) LVIDd: 4.1 cm (3.9 - 5.3) LVPWd: 1.3 cm (0.6 - 1.1) IVSs: 1.7 cm LVIDs: 2.9 cm LVPWs: 1.6 cm LA Diam: 2.9 cm (2.7 - 3.8) LAESV Index (A-L): 12.11 ml/m Ao Diam: 2.7 cm (2.0 - 3.7) AV Cusp: 1.8 cm (1.5 - 2.6) MV EXCURSION: 11.844 mm (> 18.000) MV EF SLOPE: 42 mm/s (70 - 150) EPSS: 0.2 cm MV E Chavo: 1.12 m/s MV DecT: 231 ms MV A Chavo: 1.01 m/s MV E/A Ratio: 1.11 FINDINGS -------- Sinus rhythm. This was a technically adequate study. The left ventricular size is normal. There is mild concentric left ventricular hypertrophy. Overa ll left ventricular systolic function is normal with, an EF between 55 - 60 %. The right ventricle is normal in size. Normal LA size by volume 22+/-6 ml/m2. The right atrium is normal in size. The aortic valve is trileaflet and appears structurally normal. Moderate mitral annular calcification present. There is trace to mild mitral regurgitation. The tricuspid valve appears structurally normal. Trace/mild (physiologic) pulmonic regurgitation. The aortic root size is normal. Normal inferior vena cava with normal inspiratory collapse consistent with estimated right atrial pre ssure of 5 mmHg. There is no pericardial effusion. CONCLUSIONS -------- 1. Sinus rhythm. 2. This was a technically adequate study. 3. The left ventricular size is normal. 4. There is mild concentric left ventricular hypertrophy. 5. Overall left ventricular systolic function is normal with, an EF between 55 - 60 %. 6. Normal LA size by volume 22+/-6 ml/m2. 7. The aortic valve is trileaflet and appears structurally normal. 8. Moderate mitral annular calcification present. 9. There is trace to mild mitral regurgitation. 10. The tricuspid valve appears structurally normal. 11. Trace/mild (physiologic) pulmonic regurgitation. 12. The aortic root size is normal. 13. Normal inferior vena cava with normal inspiratory collapse consistent with estimated right atrial pressure of 5 mmHg. 14. There is no pericardial effusion. PROFESSOR OF GERMAN: Marybeth Caceres RDCS
[2018-02-21] MEDS: NICOTINE 14MG/24HR PATCH TRANSDERM SCH (16:31)
[2018-02-21 17:16] LABS: Creatine Kinase 263 U/L (30-135)
[2018-02-21 17:26] LABS: Creatine Kinase MB 1.5 ng/mL (0.0-2.4); Troponin I <0.012 ng/mL (0.000-0.034)
[2018-02-21 17:34] LABS: Glucose,Whole Blood 157 mg/dL (75-99)
[2018-02-21] MEDS: CARVEDILOL 3.125 MG TAB PO SCH (17:40)
[2018-02-21] MEDS: PANTOPRAZOLE 40 MG TABLET PO SCH (17:40)
[2018-02-21] MEDS: INSULIN ASPART 100 UNIT/ML 1 ML 10 ML VIAL SQ SCH ×2 (17:40→19:52)
[2018-02-21 19:47] LABS: Glucose,Whole Blood 180 mg/dL (75-99)
[2018-02-21] MEDS: LOSARTAN 50 MG TAB PO SCH (19:51)
[2018-02-21] MEDS: PREGABALIN 100 MG CAP PO SCH (19:52)
[2018-02-21] MEDS: METHYLPHENIDATE HCL 10 MG TAB PO SCH (19:52)
[2018-02-21] MEDS: OXYBUTYNIN CHLORIDE 5 MG TAB PO SCH (19:52)
[2018-02-21] MEDS: SYMBICORT 160-4.5 MCG INHALER INHALATION SCH (20:09)
[2018-02-21] MEDS ORDERED: ZOLPIDEM 5 MG TAB PO SCH (21:00)
[2018-02-21 22:06] LABS: Creatine Kinase 240 U/L (30-135)
[2018-02-21 22:19] LABS: Creatine Kinase MB 1.4 ng/mL (0.0-2.4); Troponin I <0.012 ng/mL (0.000-0.034)
[2018-02-21 22:42] LABS: Hemoglobin A1C 6.8 % (4.0-6.0)
[2018-02-22 00:05] LABS: Glucose,Whole Blood 134 mg/dL (75-99)
[2018-02-22 00:25] LABS: Anisocytosis Slight; Basophils % (A) 0 %; Eosinophils # (A) 0.2 k/uL (0-0.7); Eosinophils % (A) 3 %; HCT 29.9 % (34.0-46.0); HGB 8.9 gm/dL (11.4-16.0); Hypochromasia Marked; Lymphocytes # (A) 1.6 k/uL (1.0-4.8); Lymphocytes % (A) 24 %; MCH 23.1 pg (25.0-35.0); MCHC 29.7 g/dL (31.0-37.0); MCV 77.6 fL (80.0-100.0); Mean Platelet Volume 7.5; Microcytosis Slight; Monocytes # (A) 0.3 k/uL (0-1.0); Monocytes % (A) 5 %; Neutrophils # (A) 4.7 k/uL (1.3-7.7); Neutrophils % (A) 67 %; Platelet Count 225 k/uL (150-450); RBC 3.86 m/uL (3.80-5.40); RDW 17.5 % (11.5-15.5)
[2018-02-22 04:06] LABS: Iron Saturation 7.92 (12.00-45.00)
[2018-02-22] MEDS: HYDROcodone/APAP 10-325MG 1 EACH TAB PO SCH (06:07)
[2018-02-22 06:54] LABS: Glucose,Whole Blood 150 mg/dL (75-99)
[2018-02-22 06:58] LABS: Anisocytosis Slight; Basophils % (A) 0 %; Eosinophils # (A) 0.3 k/uL (0-0.7); Eosinophils % (A) 4 %; HGB 9.2 gm/dL (11.4-16.0); Hypochromasia Marked; Lymphocytes # (A) 1.8 k/uL (1.0-4.8); Lymphocytes % (A) 26 %; MCH 22.5 pg (25.0-35.0); MCHC 28.7 g/dL (31.0-37.0); MCV 78.4 fL (80.0-100.0); Mean Platelet Volume 7.4; Microcytosis Slight; Monocytes # (A) 0.4 k/uL (0-1.0); Monocytes % (A) 5 %; Neutrophils # (A) 4.5 k/uL (1.3-7.7); Neutrophils % (A) 64 %; Platelet Count 245 k/uL (150-450); RBC 4.08 m/uL (3.80-5.40); RDW 17.8 % (11.5-15.5)
[2018-02-22 07:26] LABS: ALT 16 U/L (9-52); AST 16 U/L (14-36); Albumin 3.6 g/dL (3.5-5.0); Alkaline Phosphatase 88 U/L (38-126); Anion Gap 8 mmol/L; Blood Urea Nitrogen 15 mg/dL (7-17); Calcium 8.5 mg/dL (8.4-10.2); Carbon Dioxide 31 mmol/L (22-30); Chloride 102 mmol/L (98-107); Cholesterol 151 mg/dL (<200); Glucose 135 mg/dL (74-99); HDL Cholesterol 37 mg/dL (40-60); LDL Cholesterol,Calculated 52 mg/dL (0-99); Potassium 4.7 mmol/L (3.5-5.1); Sodium 141 mmol/L (137-145); Total Bilirubin 0.2 mg/dL (0.2-1.3); Total Protein 6.5 g/dL (6.3-8.2); Triglycerides 308 mg/dL (<150)
[2018-02-22] MEDS ORDERED: IPRATROPIUM 0.5 MG/2.5 ML NEBU INHALATION SCH (08:00)
[2018-02-22] MEDS ORDERED: ASPIRIN 325 MG TAB PO SCH (09:00)
[2018-02-22] MEDS ORDERED: NICOTINE 14MG/24HR PATCH TRANSDERM SCH (09:00)
[2018-02-22] MEDS ORDERED: PARoxetine 10 MG TAB PO SCH (09:00)
[2018-02-22] MEDS ORDERED: FENOFIBRATE 160 MG TAB PO SCH (09:00)
[2018-02-22] MEDS ORDERED: ASPIRIN 81 MG PO SCH (09:00)
[2018-02-22] MEDS ORDERED: CLOPIDOGREL 75 MG TAB PO SCH (09:00)
--- NOTE | 2018-02-22 09:00 | P.PN ---
Subjective Mrs. Parekh is seen and examined sleeping comfortably in bed. Past medical history significant for coronary artery disease with chronic total occlusion of the mid-PDA branch, stent to proximal RCA 11/2016 and 50% disease of circumflex artery, hypertension, dyslipidemia, diabetes mellitus, COPD, GERD and chronic nicotine dependence. She continues to complain of generalized aches and pains in the upper body including chest, shoulders, back, neck and arms. She is also complaining of a headache. Cardiac enzymes negative x3, repeat hgb 8.9 and 9.2, LDL 52, HDL 37. No occult blood sample obtained. Primary team has ordered iron studies to evaluate anemia in absence of overt bleeding. Blood pressure 138/76 heart rate 95 afebrile and maintaining oxygen saturation on room air. Echocardiogram obtained reveals preserved LV systolic function with EF 55-60%, moderate mitral valve calcification noted. Objective - Vital Signs Vital signs: Vital Signs Temp 99 F 02/22/18 07:18 Pulse 95 02/22/18 07:18 Resp 18 02/22/18 07:18 BP 138/76 02/22/18 07:18 Pulse Ox 91 L 02/22/18 07:18 Intake & Output 02/21/18 02/22/18 02/22/18 18:59 06:59 18:59 Intake Total 598.333 181.066 Balance 598.333 181.066 Weight 84.4 kg Intake: Intake, IV Titration 136.333 181.066 Amount Heparin Sod,Pork in 0.45% 136.333 181.066 NaCl 25,000 unit In 0.45 % NaCl 1 500ml.bag @ 11. 79 UNITS/KG/HR 20 mls/hr IV .Q24H VERNA Rx#: [id number] Oral 462 Other: Voiding Method Toilet Toilet # Voids 1 - Exam GENERAL: This is a 57-year-old female in no apparent distress at the time of my examination. Obese. HEENT: Head is atraumatic, normocephalic. Pupils are equal, round. Sclerae anicteric. Conjunctivae are clear. Mucous membranes of the mouth are moist. Neck is supple. There is no jugular venous distention. No carotid bruit is heard. LUNGS: Clear to auscultation bilaterally. No wheezes, rales or rhonchi. No chest wall tenderness is noted on palpation or with deep breathing. Diminished bilaterally. HEART: Regular rate and rhythm without murmurs, rubs or gallops. S1 and S2 heard. EXTREMITIES: No evidence of peripheral edema and no calf tenderness noted. - Labs CBC & Chem 7: 02/22/18 06:30 02/22/18 06:30 Labs: Abnormal Lab Results - Last 24 Hours (Table) 02/21/18 02/21/18 02/21/18 Range/Units 09:15 09:15 09:15 Hgb 9.7 L (11.4-16.0) gm/dL Hct 32.1 L (34.0-46.0) % MCV 76.2 L (80.0-100.0) fL MCH 23.1 L (25.0-35.0) pg MCHC 30.4 L (31.0-37.0) g/dL RDW 17.7 H (11.5-15.5) % APTT (22.0-30.0) sec Carbon Dioxide (22-30) mmol/L Glucose 152 H (74-99) mg/dL POC Glucose (mg/dL) (75-99) mg/dL Hemoglobin A1c 6.8 H (4.0-6.0) % Iron (50-170) ug/dL Iron Saturation (12.00-45.00) Ferritin (10.0-291.0) ng/mL Total Bilirubin 0.1 L (0.2-1.3) mg/dL AST 12 L (14-36) U/L Total Creatine Kinase (30-135) U/L Total Protein 6.2 L (6.3-8.2) g/dL Triglycerides (<150) mg/dL HDL Cholesterol (40-60) mg/dL 02/21/18 02/21/18 02/21/18 Range/Units 12:29 16:31 16:31 Hgb (11.4-16.0) gm/dL Hct (34.0-46.0) % MCV (80.0-100.0) fL MCH (25.0-35.0) pg MCHC (31.0-37.0) g/dL RDW (11.5-15.5) % APTT (22.0-30.0) sec Carbon Dioxide (22-30) mmol/L Glucose (74-99) mg/dL POC Glucose (mg/dL) 116 H (75-99) mg/dL Hemoglobin A1c (4.0-6.0) % Iron 29 L (50-170) ug/dL Iron Saturation 7.92 L (12.00-45.00) Ferritin 8.8 L (10.0-291.0) ng/mL Total Bilirubin (0.2-1.3) mg/dL AST (14-36) U/L Total Creatine Kinase 263 H (30-135) U/L Total Protein (6.3-8.2) g/dL Triglycerides (<150) mg/dL HDL Cholesterol (40-60) mg/dL 02/21/18 02/21/18 02/21/18 Range/Units 17:31 19:45 21:16 Hgb (11.4-16.0) gm/dL Hct (34.0-46.0) % MCV (80.0-100.0) fL MCH (25.0-35.0) pg MCHC (31.0-37.0) g/dL RDW (11.5-15.5) % APTT (22.0-30.0) sec Carbon Dioxide (22-30) mmol/L Glucose (74-99) mg/dL POC Glucose (mg/dL) 157 H 180 H (75-99) mg/dL Hemoglobin A1c (4.0-6.0) % Iron (50-170) ug/dL Iron Saturation (12.00-45.00) Ferritin (10.0-291.0) ng/mL Total Bilirubin (0.2-1.3) mg/dL AST (14-36) U/L Total Creatine Kinase 240 H (30-135) U/L Total Protein (6.3-8.2) g/dL Triglycerides (<150) mg/dL HDL Cholesterol (40-60) mg/dL 02/21/18 02/21/18 02/22/18 Range/Units 23:48 23:48 00:03 Hgb 8.9 L (11.4-16.0) gm/dL Hct 29.9 L (34.0-46.0) % MCV 77.6 L (80.0-100.0) fL MCH 23.1 L (25.0-35.0) pg MCHC 29.7 L (31.0-37.0) g/dL RDW 17.5 H (11.5-15.5) % APTT 34.5 H (22.0-30.0) sec Carbon Dioxide (22-30) mmol/L Glucose (74-99) mg/dL POC Glucose (mg/dL) 134 H (75-99) mg/dL Hemoglobin A1c (4.0-6.0) % Iron (50-170) ug/dL Iron Saturation (12.00-45.00) Ferritin (10.0-291.0) ng/mL Total Bilirubin (0.2-1.3) mg/dL AST (14-36) U/L Total Creatine Kinase (30-135) U/L Total Protein (6.3-8.2) g/dL Triglycerides (<150) mg/dL HDL Cholesterol (40-60) mg/dL 02/22/18 02/22/18 02/22/18 Range/Units 06:30 06:30 06:30 Hgb 9.2 L (11.4-16.0) gm/dL Hct 32.0 L (34.0-46.0) % MCV 78.4 L (80.0-100.0) fL MCH 22.5 L (25.0-35.0) pg MCHC 28.7 L (31.0-37.0) g/dL RDW 17.8 H (11.5-15.5) % APTT 40.1 H (22.0-30.0) sec Carbon Dioxide 31 H (22-30) mmol/L Glucose 135 H (74-99) mg/dL POC Glucose (mg/dL) (75-99) mg/dL Hemoglobin A1c (4.0-6.0) % Iron (50-170) ug/dL Iron Saturation (12.00-45.00) Ferritin (10.0-291.0) ng/mL Total Bilirubin (0.2-1.3) mg/dL AST (14-36) U/L Total Creatine Kinase (30-135) U/L Total Protein (6.3-8.2) g/dL Triglycerides 308 H (<150) mg/dL HDL Cholesterol 37 L (40-60) mg/dL 10/04/18 Range/Units 06:51 Hgb (11.4-16.0) gm/dL Hct (34.0-46.0) % MCV (80.0-100.0) fL MCH (25.0-35.0) pg MCHC (31.0-37.0) g/dL RDW (11.5-15.5) % APTT (22.0-30.0) sec Carbon Dioxide (22-30) mmol/L Glucose (74-99) mg/dL POC Glucose (mg/dL) 150 H (75-99) mg/dL Hemoglobin A1c (4.0-6.0) % Iron (50-170) ug/dL Iron Saturation (12.00-45.00) Ferritin (10.0-291.0) ng/mL Total Bilirubin (0.2-1.3) mg/dL AST (14-36) U/L Total Creatine Kinase (30-135) U/L Total Protein (6.3-8.2) g/dL Triglycerides (<150) mg/dL HDL Cholesterol (40-60) mg/dL Assessment and Plan Assessment: ASSESSMENT Precodial chest pain, no EKG evidence of acute ishcemia on admission. Wheezing History of coronary artery disease s/p stent of proximal RCA 11/2016 with COCKTAIL WAITRESS mid -PDA branch and osital circumflex 50% disease Microcytic, hypochromic anema with no complaints of overt GI bleeding Hypertension Dyslipidemia COPD Diabetes mellitus Chronic nicotine dependence Obesity, BMI 33.0 PLAN An acute coronary event has been ruled out. Discontinue heparin infusion. Most recent angioplasty was over 1-year ago, plavix can be discontinued. New rx has been sent for imdur per patient request. Stable from a cardiac perspective. Follow up with Dr. Alcazar in 2-3 weeks. Ongoing medical management of anemia. Nurse Practitioner note has been reviewed, I agree with a documented findings and plan of care. Patient was seen and examined.
[2018-02-22] MEDS: INSULIN ASPART 100 UNIT/ML 1 ML 10 ML VIAL SQ SCH ×2 (10:05→11:22)
[2018-02-22] MEDS: SYMBICORT 160-4.5 MCG INHALER INHALATION SCH (10:17)
[2018-02-22] MEDS: METHYLPHENIDATE HCL 10 MG TAB PO SCH (10:18)
[2018-02-22] MEDS: LOSARTAN 50 MG TAB PO SCH (10:19)
[2018-02-22] MEDS: ISOSORBIDE MONONITRATE ER 30 MG TAB.ER.24H PO SCH (10:19)
[2018-02-22] MEDS: ALPRAZolam 1 MG TAB PO SCH (10:19)
[2018-02-22] MEDS: CARVEDILOL 3.125 MG TAB PO SCH (10:19)
[2018-02-22] MEDS: OXYBUTYNIN CHLORIDE 5 MG TAB PO SCH (10:19)
[2018-02-22] MEDS: PANTOPRAZOLE 40 MG TABLET PO SCH (10:19)
[2018-02-22] MEDS: PREGABALIN 100 MG CAP PO SCH (10:19)
[2018-02-22] MEDS: NICOTINE 14MG/24HR PATCH TRANSDERM SCH (10:21)
[2018-02-22 10:48] LABS: Glucose,Whole Blood 189 mg/dL (75-99)
--- NOTE | 2018-02-22 10:49 | P.DS ---
Providers Date of admission: 02/21/18 10:38 Expected date of discharge: 02/22/18 Attending physician: Liz De La Rosa Consults: 02/21/18 10:38 Consult Physician Urgent Consulting Provider: Grzegorz Li Consult Reason/Comments: cp Do you want consulting provider notified?: Yes Primary care physician: Albina Oconnor [place] [facility] Course: Discharge diagnosis 1. Chest pain. Patient has known history of CAD with cardiac stent placement one year prior. EKG completed showing sinus rhythm with first-degree AV block. Cardiology services consulted patient started on heparin drip. 2-D echo has been ordered. Initial troponin negative. The echo completed showing EF 55-60% with moderate mitral valve calcification. Cardiology services an acute coronary event has been ruled out. Plavix can be DC'd. Patient to follow-up outpatient with Dr. Hunt in 2-3 weeks. 2. History of coronary artery disease with stent placement 1 year ago patient has been on Plavix. Cardiology will be D/C 3. Nicotine dependence. Patient educated greater than 5 minutes on smoking cessation. Nicotine patch has been ordered 4. Anemia etiology unclear. Hemoglobin 9.7. Patient denies any signs of active bleeding. Stool for occult blood ordered along with iron studies. CBC every 8 hours. Hemoglobin 9.2. She unable to produce sample for dual call. Patient denies any signs of active bleeding. Iron studies completed. Patient will be DC'd home on ferrous sulfate. Patient instructed to follow-up closely with PCP and GI services for further workup 5. History of COPD. Continue home medication. Patient instructed to follow- up with [facility] outpatient 6. History of diabetes mellitus. Home medications held awaiting cardiology recommendation. Sliding scale has been added. Home medications resumed upon discharge 7. History of GERD 8. History of hyperlipidemia. Home medications resumed 9. History of essential hypertension. Home medications resumed 10. History of osteoarthritis 11. History of pulmonary embolism 12. History of ADHD. Patient takes Ritalin per PCP 13. history of anxiety and depression 14. History of hep C 15. History of IV drug abuse Hospital course This is a 57-year-old female patient of Dr. Galicia. Patient presented to the emergency room with complaints of chest pain that started this morning. Patient does have a significant history of coronary artery disease with stent placement one year prior. Additional medical history includes nicotine dependence, chest pain, diabetes mellitus, GERD, hyperlipidemia, hypertension, myocardial infarction, osteoarthritis and pulmonary embolism. Patient also has a known past medical history of hepatitis C along with IV drug abuse. Chest X- ray completed emergency room showing no acute cardiopulmonary process. EKG completed showing sinus rhythm with first-degree AV block. Patient's initial troponin negative. Patient's hemoglobin 9.7. Patient denies any signs of active bleeding. Patient does state that approximately 2 week ago she was seen for having bleeding in her eye. This time patient denies chest pain or shortness of breath. Denies any nausea vomiting or diarrhea. Denies any urinary burning or frequency. Cardiology services consulted 2-D echo has been ordered On 02/22/2018 patient is alert and oriented 3. Patient is eager to go home. Discussed case with cardiology services. Plavix will be DC'd per cardiology services. Patient has been cleared for discharge cardiology standpoint. Patient's hemoglobin remains low at 9.2 patient denies any signs of active bleeding at this time. Patient unable to give sample for occult stool. Iron studies did indicate an iron saturation low at 7.92 and ferritin level of 8.8 along with a low iron at 29. Patient will be DC'd home on ferrous sulfate. Patient instructed to follow-up closely with PCP and GI services for further workup. Patient also follows with Dr. Greene for pulmonary services for her COPD. Patient instructed to follow-up closely. At this time patient denies chest pain or shortness breath. Patient denies any urinary burning or frequency. Patient denies nausea vomiting or diarrhea. I performed an examination of the patient and discussed their management with the Nurse Practitioner. I have reviewed the Nurse Practitioner's notes and agree with the documented findings and plan of care Patient Condition at Discharge: Stable Plan - Discharge Summary Discharge Rx Participant: No New Discharge Prescriptions: New Nicotine 14Mg/24Hr Patch [Habitrol] 1 patch TRANSDERM DAILY #30 patch Continue Albuterol Inhaler [Ventolin Hfa Inhaler] 2 puff INHALATION RT-QID PRN PRN Reason: Shortness Of Breath ALPRAZolam [Xanax] 1 mg PO BID Nitroglycerin Sl Tabs [Nitrostat] 0.4 mg SUBLINGUAL Q5M PRN PRN Reason: Chest Pain PARoxetine [Paxil] 30 mg PO DAILY Omeprazole 20 mg PO BID Aspirin 81 mg PO DAILY Amitriptyline HCl [Elavil] 10 mg PO HS metFORMIN HCL [Glucophage] 500 mg PO AC-TID Losartan [Cozaar] 50 mg PO BID Ipratropium-Albuterol Nebulize [Duoneb 0.5 mg-3 mg/3 ml Soln] 3 ml INHALATION RT-QID PRN PRN Reason: Shortness Of Breath Pregabalin [Lyrica] 100 mg PO BID Methylphenidate HCl [Ritalin] 20 mg PO TID Glimepiride [Amaryl] 2 mg PO AC-BID Oxybutynin Chloride 5 mg PO BID HYDROcodone/APAP 10-325MG [Hudson 10-325] 1 tab PO Q6H Zolpidem Tartrate [Ambien] 5 mg PO HS Budesonide/Formoterol Fumarate [Symbicort 160-4.5 Mcg Inhaler] 2 puff INHALATION RT-BID Carvedilol [Coreg] 3.125 mg PO BID Gemfibrozil [Lopid] 600 mg PO BID Ipratropium Brashear [Atrovent Hfa] 1 puff INHALATION RT-DAILY Isosorbide Mononitrate ER [Imdur] 30 mg PO DAILY #30 tab.er.24h Discontinued Clopidogrel Bisulfate [Plavix] 75 mg PO DAILY Discharge Medication List Albuterol Inhaler [Ventolin Hfa Inhaler] 2 puff INHALATION RT-QID PRN 12/05/13 [ History] ALPRAZolam [Xanax] 1 mg PO BID 10/30/14 [History] Nitroglycerin Sl Tabs [Nitrostat] 0.4 mg SUBLINGUAL Q5M PRN 10/30/14 [History] PARoxetine [Paxil] 30 mg PO DAILY 11/04/14 [History] Omeprazole 20 mg PO BID 05/27/15 [History] Aspirin 81 mg PO DAILY 08/07/15 [History] Amitriptyline HCl [Elavil] 10 mg PO HS 12/13/15 [History] metFORMIN HCL [Glucophage] 500 mg PO AC-TID 05/25/16 [History] Losartan [Cozaar] 50 mg PO BID 09/17/16 [History] Glimepiride [Amaryl] 2 mg PO AC-BID 11/22/16 [History] Ipratropium-Albuterol Nebulize [Duoneb 0.5 mg-3 mg/3 ml Soln] 3 ml INHALATION RT -QID PRN 11/22/16 [History] Methylphenidate HCl [Ritalin] 20 mg PO TID 11/22/16 [History] Pregabalin [Lyrica] 100 mg PO BID 11/22/16 [History] HYDROcodone/APAP 10-325MG [Hudson 10-325] 1 tab PO Q6H 07/04/17 [History] Oxybutynin Chloride 5 mg PO BID 07/04/17 [History] Zolpidem Tartrate [Ambien] 5 mg PO HS 07/04/17 [History] Budesonide/Formoterol Fumarate [Symbicort 160-4.5 Mcg Inhaler] 2 puff INHALATION RT-BID 02/21/18 [History] Carvedilol [Coreg] 3.125 mg PO BID 02/21/18 [History] Gemfibrozil [Lopid] 600 mg PO BID 02/21/18 [History] Ipratropium Brashear [Atrovent Hfa] 1 puff INHALATION RT-DAILY 02/21/18 [History] Isosorbide Mononitrate ER [Imdur] 30 mg PO DAILY #30 tab.er.24h 02/22/18 [Rx] Nicotine 14Mg/24Hr Patch [Habitrol] 1 patch TRANSDERM DAILY #30 patch 02/22/18 [ Rx] Follow up Appointment(s)/Referral(s): Rodney Alcazar MD [STAFF PHYSICIAN] - 2 Weeks Albina Oconnor MD [Primary Care Provider] - 1-2 days Jaylin Franklin MD [STAFF PHYSICIAN] - 1 Week Patient Instructions/Handouts: Chest Pain (ED) Activity/Diet/Wound Care/Special Instructions: Diet heart healthy Activity as tolerated Patient instructed to follow-up closely with PCP and GI services for further workup in regards to anemia. Patient will be DC'd home on ferrous sulfate. CBC and CMP will be ordered for 2 days. So follows with Dr. christianson for her COPD. Instructed to follow-up closely with pulmonary services Discharge Disposition: HOME SELF-CARE
[2018-02-22 11:55] VITALS: BP 120/66; PULSE 100; RESP 16; TEMP 98.9
== END 2018-02-22 11:55 | disposition home or self-care (01) ==
LOC: EC 09:09 → 3OBS 10:38
PROVIDERS: ADMIT Internal Medicine; ATTEND Internal Medicine
DX: R07.2 Precordial pain (principal); I25.10 Atherosclerotic heart disease of native coronary artery without angina pectoris; Z95.5 Presence of coronary angioplasty implant and graft; F17.200 Nicotine dependence, unspecified, uncomplicated; D64.9 Anemia, unspecified; J44.9 Chronic obstructive pulmonary disease, unspecified; E11.40 Type 2 diabetes mellitus with diabetic neuropathy, unspecified; K21.9 Gastro-esophageal reflux disease without esophagitis; E78.5 Hyperlipidemia, unspecified; I10 Essential (primary) hypertension; M19.90 Unspecified osteoarthritis, unspecified site; Z86.711 Personal history of pulmonary embolism; F90.9 Attention-deficit hyperactivity disorder, unspecified type; F32.9 Major depressive disorder, single episode, unspecified; F41.9 Anxiety disorder, unspecified; I25.2 Old myocardial infarction; M79.602 Pain in left arm; R42 Dizziness and giddiness; R51 Headache; T46.3X6A Underdosing of coronary vasodilators, initial encounter; G47.33 Obstructive sleep apnea (adult) (pediatric); H91.90 Unspecified hearing loss, unspecified ear; Z79.899 Other long term (current) drug therapy; Z79.82 Long term (current) use of aspirin; Z79.84 Long term (current) use of oral hypoglycemic drugs; Z79.02 Long term (current) use of antithrombotics/antiplatelets; Z79.51 Long term (current) use of inhaled steroids; Z79.891 Long term (current) use of opiate analgesic; Z88.8 Allergy status to other drugs, medicaments and biological substances; Z86.73 Personal history of transient ischemic attack (TIA), and cerebral infarction without residual deficits; Z87.01 Personal history of pneumonia (recurrent); Z86.19 Personal history of other infectious and parasitic diseases; E66.9 Obesity, unspecified; Z68.33 Body mass index [BMI] 33.0-33.9, adult
CPT/HCPCS: 99291; 96365 ×2; 96366 ×4; 96375 ×2; 96376 ×4; 36415; 94640 ×2; 93306; 83880; 80061; 80053 ×2; 82728; 82550; 82553; 83540; 83550; 83690; 83735; 84484; 85025 ×2; 85610; 85730 ×2; 83036; 71046; G0378 ×2; S4990 ×2; J2270 ×2; J1644 ×2